=== PATIENT | female | born 1955 | race Caucasian/White ===

== ENCOUNTER → 2017-05-14 07:02 | Outpatient (CLI) | payer OTHER, SELFPAY ==
[2017-05-14 10:13] LABS: Absolute Lymphocyte Count 2.04 X10^3/ul (0.83-4.51); Basophil# 0.02 X10^3/uL; Basophil% 0.3 % (0-1); Eosinophils% 1.4 % (0-5); Hematocrit 40.4 % (37-47); Hemoglobin 13.4 g/dl (12.0-15.0); Lymphocyte # 2.04 X10^3/ul (4.0); Lymphocyte % 28.7 % (19-41); Mean Corp Hgb Conc 33.2 g/gl (32-36); Mean Corpuscular Hgb 33.5 pg (27.0-32.0); Monocyte# 0.95 X10^3/uL; Monocyte% 13.4 % (0-10); Neutrophil # 3.98 X10^3/uL (2.7-7.7); Neutrophil % 56.1 % (47-70); Platelet Count 357 K/mm3 (150-450); RBC Distribution Width CV 13.4 % (11.6-14.6); RBC Distribution Width SD 49.8 fl (35.1-43.9); White Blood Count 7.1 K/mm3 (4.4-11.0)
[2017-05-14 10:14] LABS: POSITIVE COUNT NO; POSITIVE DIFFERENTIAL NO; POSITIVE MORPHOLOGY NO
[2017-05-14 10:49] LABS: ALB/GLOB Ratio 0.9 RATIO (0.9-2.4); AST(SGOT) 20 U/L (15-37); Alanine Aminotransfer ALT/SGPT 25 U/L (13-56); Albumin, Serum 3.6 g/dL (3.2-5.0); Alkaline Phosphatase 94 U/L (45-117); Anion Gap 11 (5-15); BUN 12 mg/dL (7-18); BUN/Creat Ratio 15.3 RATIO (10-20); Calcium,Total 8.7 mg/dL (8.5-10.1); Chloride 99 mmol/L (98-107); Creatinine, Serum 0.78 mg/dL (0.55-1.02); EST Glomerular Filtration Rate 79 mL/min (>60); Est Glom Filt Rate - Afr Amer 96 mL/min (>60); Globulin 4.1 g/dL (2.2-4.2); Glucose 88 mg/dL (74-106); Potassium 3.9 mmol/L (3.5-5.1); Protein, Total 7.7 g/dL (6.4-8.2); Sodium Level 134 mmol/L (136-145)
== END ==
PROVIDERS: Visit Provider Internal Medicine Rheumatology
DX: M06.4 Inflammatory polyarthropathy (principal); Z79.899 Other long term (current) drug therapy; M79.7 Fibromyalgia; M15.9 Polyosteoarthritis, unspecified; M17.0 Bilateral primary osteoarthritis of knee; K21.0 Gastro-esophageal reflux disease with esophagitis; F32.89 Other specified depressive episodes
CPT/HCPCS: 36415; 80053; 85025

== ENCOUNTER → 2017-06-02 09:47 | Outpatient (CLI) | payer OTHER, SELFPAY ==
[2017-06-02 09:51] LABS: Bacteria 0 SEEN /hpf (None Seen); Red Blood Cells-Urine 0 SEEN /hpf (0-5); White Blood Cells 0 SEEN /hpf (0-5)
[2017-06-02 12:56] LABS: Color, Urine Yellow (Yellow); Glucose, Dipstick Normal (Normal); Ketone-Dipstick 5 mg/dl (Negative); Leukocyte Esterase-Dipstick 25 /ul (Negative); Nitrite-Dipstick Negative (Negative); Occult Blood-Urine 10 /ul (Negative); Protein-Dipstick Negative (Negative); Specific Gravity, Urine 1.025 (1.002-1.030); Urine Bilirubin Dipstick Negative (Negative); Urine Clarity Clear (Clear); Urine Urobilinogen Normal (Normal)
[2017-06-02 13:06] LABS: Absolute Lymphocyte Count 2.17 X10^3/ul (0.83-4.51); Absolute Neutrophil Count 5.3 X10^3/uL (2.0-7.7); Basophil# 0.02 X10^3/uL; Basophil% 0.2 % (0-1); Eosinophil# 0.11 X10^3/uL; Eosinophils% 1.3 % (0-5); Hematocrit 40.6 % (37-47); Hemoglobin 13.5 g/dl (12.0-15.0); Lymphocyte # 2.17 X10^3/ul (4.0); Lymphocyte % 25.4 % (19-41); Mean Corp Hgb Conc 33.3 g/gl (32-36); Mean Corpuscular Hgb 33.2 pg (27.0-32.0); Mean Corpuscular Volume 99.8 fL (81-99); Monocyte# 0.89 X10^3/uL; Monocyte% 10.4 % (0-10); Neutrophil # 5.32 X10^3/uL (2.7-7.7); Neutrophil % 62.5 % (47-70); Platelet Count 394 K/mm3 (150-450); RBC Distribution Width CV 13.1 % (11.6-14.6); RBC Distribution Width SD 47.6 fl (35.1-43.9); Red Blood Count 4.07 M/mm3 (4.2-5.4); White Blood Count 8.5 K/mm3 (4.4-11.0)
[2017-06-02 13:07] LABS: POSITIVE COUNT NO; POSITIVE DIFFERENTIAL NO; POSITIVE MORPHOLOGY NO
[2017-06-02 13:14] LABS: Calcium Oxalate Crystals Ur 2+ /hpf (<or=2+); Mucous, Urine RARE /hpf (<or=2+); Squamous Epithelial Cells - UA 0-5 SEEN /hpf (5-10)
[2017-06-02 13:35] LABS: ALB/GLOB Ratio 0.8 RATIO (0.9-2.4); AST(SGOT) 20 U/L (15-37); Alanine Aminotransfer ALT/SGPT 22 U/L (13-56); Albumin, Serum 3.6 g/dL (3.2-5.0); Alkaline Phosphatase 85 U/L (45-117); Anion Gap 13 (5-15); BUN 16 mg/dL (7-18); BUN/Creat Ratio 21.6 RATIO (10-20); Calcium,Total 9.5 mg/dL (8.5-10.1); Chloride 98 mmol/L (98-107); Cholesterol 168 mg/dL (200); Creatinine, Serum 0.74 mg/dL (0.55-1.02); EST Glomerular Filtration Rate 84 mL/min (>60); Est Glom Filt Rate - Afr Amer 102 mL/min (>60); Globulin 4.4 g/dL (2.2-4.2); Glucose 70 mg/dL (74-106); High Density Lipoprotein 76 mg/dL; Potassium 3.5 mmol/L (3.5-5.1); Sodium Level 134 mmol/L (136-145); Thyroid Stim Hormone (TSH) 1.96 uIU/mL (0.358-3.74); Triglycerides 60 mg/dL; Very Low Density Lipoprotein 12 mg/dL (5-40)
== END ==
PROVIDERS: Family Provider Family Medicine; PCP Family Medicine; Visit Provider Family Medicine
DX: I10 Essential (primary) hypertension (principal); Z13.220 Encounter for screening for lipoid disorders
CPT/HCPCS: 36415; 80053; 80061; 81001; 84443; 85025

== ENCOUNTER → 2017-07-28 07:04 | Outpatient (CLI) | payer OTHER, SELFPAY ==
[2017-07-28 10:01] LABS: Absolute Neutrophil Count 4.3 X10^3/uL (2.0-7.7); Basophil# 0.02 X10^3/uL; Basophil% 0.3 % (0-1); Eosinophil# 0.12 X10^3/uL; Eosinophils% 1.8 % (0-5); Hematocrit 38.1 % (37-47); Hemoglobin 13.1 g/dl (12.0-15.0); Lymphocyte % 23.6 % (19-41); Mean Corp Hgb Conc 34.4 g/gl (32-36); Mean Corpuscular Hgb 34.2 pg (27.0-32.0); Mean Corpuscular Volume 99.5 fL (81-99); Mean Platelet Vol. 10.1 fl (6.2-12.0); Monocyte# 0.73 X10^3/uL; Monocyte% 10.8 % (0-10); Neutrophil % 63.4 % (47-70); POSITIVE COUNT NO; POSITIVE DIFFERENTIAL NO; POSITIVE MORPHOLOGY NO; Platelet Count 352 K/mm3 (150-450); RBC Distribution Width CV 13.6 % (11.6-14.6); RBC Distribution Width SD 47.8 fl (35.1-43.9); Red Blood Count 3.83 M/mm3 (4.2-5.4); White Blood Count 6.8 K/mm3 (4.4-11.0)
[2017-07-28 10:15] LABS: ALB/GLOB Ratio 0.8 RATIO (0.9-2.4); AST(SGOT) 18 U/L (15-37); Alanine Aminotransfer ALT/SGPT 24 U/L (13-56); Albumin, Serum 3.4 g/dL (3.2-5.0); Alkaline Phosphatase 92 U/L (45-117); Anion Gap 8 (5-15); BUN 16 mg/dL (7-18); BUN/Creat Ratio 20.2 RATIO (10-20); Calcium,Total 8.9 mg/dL (8.5-10.1); Chloride 101 mmol/L (98-107); Creatinine, Serum 0.79 mg/dL (0.55-1.02); EST Glomerular Filtration Rate 78 mL/min (>60); Est Glom Filt Rate - Afr Amer 94 mL/min (>60); Glucose 87 mg/dL (74-106); Potassium 4.1 mmol/L (3.5-5.1); Protein, Total 7.4 g/dL (6.4-8.2); Sodium Level 135 mmol/L (136-145)
== END ==
PROVIDERS: Family Provider Family Medicine; PCP Family Medicine; Visit Provider Internal Medicine Rheumatology
DX: M06.4 Inflammatory polyarthropathy (principal); M79.7 Fibromyalgia; M17.0 Bilateral primary osteoarthritis of knee; M25.562 Pain in left knee; K21.0 Gastro-esophageal reflux disease with esophagitis; Z79.899 Other long term (current) drug therapy
CPT/HCPCS: 36415; 80053; 85025

== ENCOUNTER → 2017-07-30 15:40 | Outpatient (CLI) | payer OTHER, SELFPAY ==
--- NOTE | 2017-07-30 15:50 | BI_ITS ---
MAMMOGRAPHY - BILATERAL SCREENING 3-D MARGARITA SYNTHESIS REASON FOR EXAM: Female, 61 years old. Bilateral Screening 3-D tomosynthesis PERTINENT HISTORY: No significant family history. TECHNIQUE: 2-D mammograms and 3-D Margarita synthesis of the breast (s) were performed. CAD was performed. COMPARISON: 2009 FINDINGS: The breast composition is heterogeneously dense that can obscure small breast masses. Scattered benign calcifications are seen. No dense spiculated masses or suspicious microcalcifications are identified. No architectural distortion is identified. There is no skin thickening or retraction. There has been no significant change since the prior study. BI/SCREENING MAMM (CAD), BILAT IMPRESSION: No mammographic signs of malignancy. Routine yearly mammograms recommended. ASSESSMENT CATEGORY: BIRADS Category 2: Benign. A letter regarding these results will be sent to the patient by the facility within 30 days. FOLLOW UP RECOMMENDATION: Yearly follow up mammogram recommended. (A) Approximately 10% of breast cancers are not detected by mammography. A normal mammogram should not delay biopsy of a clinically suspicious abnormality. Electronically Signed: Randy Beard MD at 8:20 EDT , Service support ,
== END ==
PROVIDERS: Family Provider Family Medicine; PCP Family Medicine; Visit Provider Family Medicine
DX: Z12.31 Encounter for screening mammogram for malignant neoplasm of breast (principal)
CPT/HCPCS: 77062; 77063; 77067; G0279

== ENCOUNTER → 2017-10-25 08:13 | Outpatient (CLI) | payer OTHER, SELFPAY ==
[2017-10-25 10:15] LABS: Absolute Neutrophil Count 4.3 X10^3/uL (2.0-7.7); Basophil# 0.02 X10^3/uL; Basophil% 0.3 % (0-1); Eosinophils% 3.1 % (0-5); Hematocrit 41.1 % (37-47); Hemoglobin 13.6 g/dl (12.0-15.0); Lymphocyte % 20.2 % (19-41); Mean Corp Hgb Conc 33.1 g/gl (32-36); Mean Corpuscular Hgb 33.5 pg (27.0-32.0); Mean Corpuscular Volume 101.2 fL (81-99); Mean Platelet Vol. 9.7 fl (6.2-12.0); Monocyte# 0.55 X10^3/uL; Monocyte% 8.6 % (0-10); Neutrophil # 4.34 X10^3/uL (2.7-7.7); Neutrophil % 67.6 % (47-70); Platelet Count 354 K/mm3 (150-450); RBC Distribution Width CV 13.1 % (11.6-14.6); RBC Distribution Width SD 48.5 fl (35.1-43.9); Red Blood Count 4.06 M/mm3 (4.2-5.4); White Blood Count 6.4 K/mm3 (4.4-11.0)
[2017-10-25 10:16] LABS: POSITIVE COUNT NO; POSITIVE DIFFERENTIAL NO; POSITIVE MORPHOLOGY NO
[2017-10-25 11:01] LABS: ALB/GLOB Ratio 0.8 RATIO (0.9-2.4); AST(SGOT) 27 U/L (15-37); Alanine Aminotransfer ALT/SGPT 25 U/L (13-56); Albumin, Serum 3.6 g/dL (3.2-5.0); Alkaline Phosphatase 89 U/L (45-117); Anion Gap 10 (5-15); BUN 11 mg/dL (7-18); BUN/Creat Ratio 11.9 RATIO (10-20); Chloride 101 mmol/L (98-107); Creatinine, Serum 0.92 mg/dL (0.55-1.02); EST Glomerular Filtration Rate 65 mL/min (>60); Est Glom Filt Rate - Afr Amer 79 mL/min (>60); Globulin 4.4 g/dL (2.2-4.2); Glucose 81 mg/dL (74-106); Potassium 4.4 mmol/L (3.5-5.1); Sodium Level 136 mmol/L (136-145)
== END ==
PROVIDERS: Family Provider Family Medicine; PCP Family Medicine; Visit Provider Internal Medicine Rheumatology
DX: M06.4 Inflammatory polyarthropathy (principal); M17.0 Bilateral primary osteoarthritis of knee; M79.7 Fibromyalgia; K21.0 Gastro-esophageal reflux disease with esophagitis; F32.89 Other specified depressive episodes; Z79.899 Other long term (current) drug therapy
CPT/HCPCS: 36415; 80053; 85025

== ENCOUNTER → 2017-12-14 10:41 | Outpatient (CLI) | payer OTHER, SELFPAY ==
--- NOTE | 2017-12-14 10:42 | ECHOD_ITS ---
Reason For Study: CHEST PAIN Procedure This was a 2D Doppler, Color Flow transthoracic echocardiogram. Exam performed in department. Left Ventricle Normal size and thickness. The estimated ejection fraction is 65 %. Stage 1 diastolic dysfunction. No regional wall motion abnormalities noted. Right Ventricle Normal size and thickness. Normal systolic function. Atria Normal left atrium. Normal right atrium. Normal atrial septum. Mitral Valve The mitral valve is structurally normal. No prolapse or stenosis seen. Mild (1+) mitral valve insufficiency. Tricuspid Valve Normal tricuspid valve. Mild (1+) tricuspid valve insufficiency. Right ventricular systolic pressure estimated to be 32 mmHg. Aortic Valve Trisinus/trileaflet aortic valve. Pulmonic Valve Normal pulmonic valve. Trivial eccentric pulmonic valve insufficiency. Great Vessels Normal aortic root. Normal arch. Normal inferior vena cava. Inferior vena cava collapse with sniff. Pericardium/Pleural No pericardial effusion. MMode/2D Measurements & Calculations LVIDd: 3.8 cm IVSd: 0.95 cm Ao root diam: 3.7 cm LVIDs: 2.6 cm LVPWd: 1.0 cm LA dimension: 3.2 cm RVDd: 3.3 cm FS: 31.3 % LAV(MOD-bp): 44.0 ml LVAd ap4: 33.5 cm2 SV(MOD-sp4): 69.1 ml LAV(MOD-bp) Indexed: 23.5 ml/m2 EDV(MOD-sp4): 105.3 ml LAV(MOD-sp2): 41.0 ml EDV(sp4-el): 110.5 ml LAV(MOD-sp4): 43.4 ml LVAs ap4: 17.2 cm2 ESV(MOD-sp4): 36.2 ml ESV(sp4-el): 36.6 ml EF(MOD-sp4): 65.6 % EF(sp4-el): 66.9 % SV(sp4-el): 73.9 ml LA A4 area: 17.3 cm2 RA A4 area: 17.8 cm2 Time Measurements MV dec time: 0.21 sec Doppler Measurements & Calculations MV E max ezio: 79.9 cm/sec Lat Peak E' Ezio: 10.7 cm/sec Med Peak E' Ezio: 8.1 cm/sec MV A max ezio: 97.8 cm/sec E/E' lat: 7.5 E/E' med: 9.9 MV E/A: 0.82 Ao V2 max: 151.8 cm/sec LV V1 max: 121.2 cm/sec PA V2 max: 78.7 cm/sec Ao max P.2 mmHg LV V1 max P.9 mmHg TR max ezio: 258.9 cm/sec TR max P.8 mmHg Interpretation Summary The estimated ejection fraction is 65 %. Stage 1 diastolic dysfunction. Mild (1+) mitral valve insufficiency. Mild (1+) tricuspid valve insufficiency. Right ventricular systolic pressure estimated to be 32 mmHg. Ordering Physician: Joseph Ramon Referring Physician: ADRIAN GAGNON Performed By: Jennifer Prieto RDCS
[2017-12-14 11:09] LABS: AST(SGOT) 25 U/L (15-37); Alanine Aminotransfer ALT/SGPT 26 U/L (13-56); Albumin, Serum 3.7 g/dL (3.2-5.0); Alkaline Phosphatase 97 U/L (45-117); Bilirubin, Direct 0.17 mg/dL (0.00-0.30); Cholesterol 175 mg/dL (200); Globulin 4.5 g/dL (2.2-4.2); High Density Lipoprotein 71 mg/dL; Protein, Total 8.2 g/dL (6.4-8.2); Triglycerides 52 mg/dL; Very Low Density Lipoprotein 10 mg/dL (5-40)
== END ==
PROVIDERS: Family Provider Family Medicine; PCP Family Medicine; Visit Provider Internal Medicine Cardiovascular Disease
DX: R07.9 Chest pain, unspecified (principal)
CPT/HCPCS: 36415; 80061; 80076; 93306

== ENCOUNTER → 2017-12-16 13:19 | Outpatient (CLI) | payer OTHER, SELFPAY ==
--- NOTE | 2017-12-16 13:21 | STE_ITS ---
Reason For Study: Chest Pain Stress Results Protocol: Stress Echocardiogram Maximum Predicted HR: 156 bpm Target HR: 133 bpm% Maximum Pr edicted HR: 88 % DurationHeart Rate Stage (mm:ss) (bpm) BPCom ment BASELINE 72 110/70 AMENA PROTOCOL- STAGE 1 3:00 12 9 148/78 AMENA PROTOCOL- STAGE 2 3:00 13 4 144/80 AMENA PROTOCOL- STAGE 3 0:16 13 7 / LEG PAIN RECOVERY 91 134/74 L ARM TINGLING, SUBSIDED AFTER TWO MIN Stress Duration: 6:16 mm:ss Maximum Stress HR: 137 bpm Baseline Echocardiogram Findings The estimated ejection fraction is 65 %. Stress Echo Wall motion Data Resting WMIntermediate WMStress WM Resting Wall Motion Wall Motion Stress No regional wall motion No regional wall motion abnormalities noted. abnormalities noted. EKG Data The baseline ECG demonstrates normal sinus rhythm with at rate of _ beats per minute. The patient exercised according to the regular Amena protocol for a total duration of 6:16. The maximum heart rate attained was 137 beats per minute. This was 87% of maximum predicted heart rate. The patient exercised into stage 3 of the Amena protocol. During stress, there were no ST or T wave changes noted to suggest ischemia. No clinical angina was noted. Interpretation Summary The estimated ejection fraction is 65 %. Normal, adequate, treadmill echocardiogram. Negative for ischemia by EKG and echocardiographic criteria. No anginal symptoms noted. Rare PACs noted. Appropriate blood pressure response to exercise. Average exercise capacity for age. Final LVEF is 75%. Test terminated due to the attainment of target heart rate and leg pain. Ordering Physician: Joseph Ramon Referring Physician: Joseph Ramon Performed By: Jeanna Hernandez RDCS
== END ==
PROVIDERS: Family Provider Family Medicine; PCP Family Medicine; Visit Provider Internal Medicine Cardiovascular Disease
DX: R07.9 Chest pain, unspecified (principal)
CPT/HCPCS: 93017; 93350

== ENCOUNTER → 2018-01-17 13:33 | Outpatient (CLI) | payer OTHER, SELFPAY ==
[2018-01-17 15:31] LABS: Absolute Lymphocyte Count 2.17 X10^3/ul (0.83-4.51); Absolute Neutrophil Count 6.5 X10^3/uL (2.0-7.7); Basophil# 0.03 X10^3/uL; Basophil% 0.3 % (0-1); Eosinophil# 0.14 X10^3/uL; Eosinophils% 1.4 % (0-5); Hematocrit 39.9 % (37-47); Hemoglobin 13.5 g/dl (12.0-15.0); Lymphocyte # 2.17 X10^3/ul (4.0); Lymphocyte % 22.3 % (19-41); Mean Corp Hgb Conc 33.8 g/gl (32-36); Mean Corpuscular Hgb 33.8 pg (27.0-32.0); Mean Platelet Vol. 9.6 fl (6.2-12.0); Monocyte# 0.89 X10^3/uL; Monocyte% 9.1 % (0-10); Neutrophil # 6.49 X10^3/uL (2.7-7.7); Neutrophil % 66.6 % (47-70); Platelet Count 387 K/mm3 (150-450); RBC Distribution Width CV 13.9 % (11.6-14.6); RBC Distribution Width SD 49.8 fl (35.1-43.9); Red Blood Count 3.99 M/mm3 (4.2-5.4); White Blood Count 9.8 K/mm3 (4.4-11.0)
[2018-01-17 15:38] LABS: POSITIVE COUNT NO; POSITIVE DIFFERENTIAL NO; POSITIVE MORPHOLOGY NO
[2018-01-17 16:05] LABS: ALB/GLOB Ratio 0.9 RATIO (0.9-2.4); AST(SGOT) 16 U/L (15-37); Alanine Aminotransfer ALT/SGPT 23 U/L (13-56); Albumin, Serum 3.7 g/dL (3.2-5.0); Alkaline Phosphatase 79 U/L (45-117); Anion Gap 6 (5-15); BUN 12 mg/dL (7-18); BUN/Creat Ratio 14.6 RATIO (10-20); Calcium,Total 8.9 mg/dL (8.5-10.1); Chloride 97 mmol/L (98-107); Creatinine, Serum 0.82 mg/dL (0.55-1.02); EST Glomerular Filtration Rate 74 mL/min (>60); Est Glom Filt Rate - Afr Amer 90 mL/min (>60); Globulin 4.3 g/dL (2.2-4.2); Glucose 86 mg/dL (74-106); Potassium 4.1 mmol/L (3.5-5.1); Sodium Level 131 mmol/L (136-145)
== END ==
PROVIDERS: Family Provider Family Medicine; PCP Family Medicine; Referring Provider Internal Medicine Rheumatology; Visit Provider Internal Medicine Rheumatology
DX: M06.4 Inflammatory polyarthropathy (principal); M17.0 Bilateral primary osteoarthritis of knee; M79.7 Fibromyalgia; K21.0 Gastro-esophageal reflux disease with esophagitis; Z79.899 Other long term (current) drug therapy
CPT/HCPCS: 36415; 80053; 85025

== ENCOUNTER 2018-02-14 07:57 | Day surgery (SDC) | payer OTHER, SELFPAY ==
--- NOTE | 2018-02-14 | GASB_PTH ---
PATIENT: MARIANNE JOYCE LOC: EN U#:[id number] AGE/SX: 62/F ROOM: RE02/14/[address]: Dr. Joseph Wadsworth MD : 1955 BED: DIS: 02/14/2018 SPEC #: [id number] RECD: 02/14/18 14:34 STATUS: KACI REBlaire #: [id number] CHICHO: 02/14/18 00:[address]: Joseph Wadsworth DEPT: SURGICAL PATHOLOGY RECD BY: Mark Olvera ENTERED: 02/14/18 14:34 SP TYPE: Gastric Bx OTHR DR: Dr. Cristóbal Nielsen MD Tissues: Gastric mucous membrane Procedures: Surgery Specimen Level IV HEADER OPERATION: EGD ([facility] [place]) PRE-OP DIAGNOSIS: GERD, esophagitis TISSUE SUBMITTED: Antral biopsy MICROSCOPIC DIAGNOSIS Antral biopsy: Mild gastritis. See microscopic description and comment. SJ:hannah 02/15/18 COMMENT The results of immunohistochemistry for Helicobacter pylori will be reported separately ([id number]). MICROSCOPIC DESCRIPTION Slides are reviewed. The specimen shows fragments of gastric mucosa with chronic inflammatory cell infiltrates in the lamina propria consisting of lymphocytes and plasma cells, consistent with mild chronic gastritis. GROSS DESCRIPTION Received is one container labeled with the patient name and designated antral biopsy. The specimen consists of one irregular fragment of light muhammad soft tissue that measures 0.4 x 0.1 x 0.1 cm. The specimen is totally submitted in one cassette. GIL:hannah 02/14/18 TC: 3 CPT: 12932
--- NOTE | 2018-02-14 | IMM_PTH ---
PATIENT: MARIANNE JOYCE LOC: EN U#:[id number] AGE/SX: 62/F ROOM: RE02/14/[address]: Dr. Joseph Wadsworth MD : 1955 BED: DIS: 02/14/2018 SPEC #: [id number] RECD: 02/15/18 07:49 STATUS: KACI REQ #: [id number] CHICHO: 02/14/18 00:[address]: Joseph Wadsworth DEPT: IMMUNOHISTOCHEMISTRY RECD BY: Sanjuanita Prakash ENTERED: 02/15/18 07:49 SP TYPE: IMMUNO OTHR DR: Dr. Cristóbal Nielsen MD Tissues: Gastric mucous membrane Procedures: H Pylori (initial) Comments: @ Specimen number changed from [id number] to [id number] @ on 02/15/18 at 0752 by [facility]. PHYSICIAN & INSTITUTION [place] [id number] SPECIMEN INFORMATION: Tissue Source: Antral biopsy Clinical Info: GERD, esophagitis Specimen Number: [id number] CPT code: 62053 METHODOLOGY: Deparaffinized sections of prefer/formalin-fixed tissue or PAP/DQ stained slides are incubated with monoclonal/polyclonal antibodies/oligonucleotide probes. Localization is made via biotin free immunoperoxidase method. Appropriate controls are performed and reacted as expected. Results on target cell population are indicated in the following table: RESULTS: ANTIBODY / CLONE RESULT H Pylori (polyclonal) negative These tests were developed and their performance characteristics determined by [facility]. They may not have been cleared or approved by the [place]. Food and Drug Administration. The FDA has determined that such clearance or approval is not necessary. INTERPRETATION: Antral biopsy: Negative for Helicobacter pylori organisms. SJ:homer 02/15/18
[2018-02-14 08:18] VITALS: BP 124/83; PULSE 71; RESP 14; TEMP 37.3; O2SAT 99; BMI 32.4
[2018-02-14 09:10] VITALS: BP 124/83; BP 93/59; PULSE 73; RESP 16; TEMP 36.4; O2SAT 98
--- NOTE | 2018-02-14 09:14 | OP.ENDO_ITS ---
Patient Name: Maryam Do Procedure Date: 02/14/2018 8:52 AM Date of : 1955 Age: 62 Procedure: Upper GI endoscopy Indications: Gastro-esophageal reflux disease Providers: Joseph Wadsworth MD Medicines: See the Anesthesia note for documentation of the administered medications Patient Profile: This is a 62 year old female. Refer to note in patient chart for documentation of history and physical. Patient has symptoms of acute epigastric abdominal pain, acute heartburn, chronic heartburn and acute throat burning. The symptoms first began August. She is status post EGD (normal) within the past several years. Complications: No immediate complications. Procedure: Pre-Anesthesia Assessment: - Prior to the procedure, a History and Physical was performed, and patient medications and allergies were reviewed. The patient's tolerance of previous anesthesia was also reviewed. The risks and benefits of the procedure and the sedation options and risks were discussed with the patient. All questions were answered, and informed consent was obtained. Prior Anticoagulants: The patient has taken no previous anticoagulant or antiplatelet agents. ASA Grade Assessment: II - A patient with mild systemic disease. After reviewing the risks and benefits, the patient was deemed in satisfactory condition to undergo the procedure. After obtaining informed consent, the endoscope was passed under direct vision. Throughout the procedure, the patient's blood pressure, pulse, and oxygen saturations were monitored continuously. The gastroscope was introduced through the mouth, and advanced to the second part of duodenum. The upper GI endoscopy was accomplished without difficulty. The patient tolerated the procedure well. Scope In: 9:03:52 AM Scope Out: 9:06:26 AM Total Procedure Duration Time 0 hours 2 minutes 34 seconds Findings: The nasopharynx was normal. The Z-line was regular and was found 40 cm from the incisors. Diffuse mildly erythematous mucosa without bleeding was found in the prepyloric region of the stomach. Biopsies were taken with a cold forceps for Helicobacter pylori testing. The examined duodenum was normal. Impression: - Normal nasopharynx. - Z-line regular, 40 cm from the incisors. - Erythematous mucosa in the prepyloric region of the stomach. Biopsied. - Normal examined duodenum. Recommendation: - Await pathology results. - Repeat upper endoscopy in 1 month 48 hour pH probe. To evaluate for lap Nae fundoplication. Will also order an esophageal mamometry is one week. - Return to GI office in 1 week. - Continue present medications. Procedure Code(s): --- Professional --- 73993, Esophagogastroduodenoscopy, flexible, transoral; with biopsy, single or multiple Diagnosis Code(s): --- Professional --- K31.89, Other diseases of stomach and duodenum K21.9, Gastro-esophageal reflux disease without esophagitis CPT copyright 2017 [employer] [place] [employer]. All rights reserved. The codes documented in this report are preliminary and upon scrub wheel operator review may be revised to meet current compliance requirements. MD Joseph Cuellar MD 02/14/2018 9:14:26 AM This report has been signed electronically. Number of Addenda: 0 Note Initiated On: 02/14/2018 8:52 AM
[2018-02-14 09:15] VITALS: BP 103/63; BP 124/83; PULSE 68; RESP 16; O2SAT 99
[2018-02-14 09:20] VITALS: BP 104/67; BP 124/83; PULSE 63; RESP 16; O2SAT 100
[2018-02-14 09:25] VITALS: BP 101/68; BP 124/83; PULSE 64; RESP 16; TEMP 36.3; O2SAT 99
== END 2018-02-14 09:49 | disposition home or self-care (01) ==
LOC: EN 07:57 → AC 07:59
PROVIDERS: Family Provider Family Medicine; PCP Family Medicine; Referring Provider Surgery; Visit Provider Surgery
PROC: 0DJ08ZZ Inspection of Upper Intestinal Tract, Via Natural or Artificial Opening Endoscopic (ICD-10-PCS; CPT 43235; principal; 2018-02-14 08:55)
DX: K29.70 Gastritis, unspecified, without bleeding (principal); K21.9 Gastro-esophageal reflux disease without esophagitis; I10 Essential (primary) hypertension; I36.1 Nonrheumatic tricuspid (valve) insufficiency; I34.0 Nonrheumatic mitral (valve) insufficiency; M06.9 Rheumatoid arthritis, unspecified; R07.9 Chest pain, unspecified; Z78.0 Asymptomatic menopausal state; Z79.899 Other long term (current) drug therapy; Z87.19 Personal history of other diseases of the digestive system; Z85.828 Personal history of other malignant neoplasm of skin
CPT/HCPCS: 43239; 88305; 88342; J7120

== ENCOUNTER → 2018-05-02 13:29 | Outpatient (CLI) | payer OTHER, SELFPAY ==
[2018-05-02 15:50] LABS: ALB/GLOB Ratio 0.9 RATIO (0.9-2.4); AST(SGOT) 21 U/L (15-37); Alanine Aminotransfer ALT/SGPT 23 U/L (13-56); Albumin, Serum 3.7 g/dL (3.2-5.0); Alkaline Phosphatase 74 U/L (45-117); Anion Gap 12 (5-15); BUN 11 mg/dL (7-18); BUN/Creat Ratio 13.3 RATIO (10-20); Calcium,Total 8.8 mg/dL (8.5-10.1); Chloride 101 mmol/L (98-107); Creatinine, Serum 0.82 mg/dL (0.55-1.02); EST Glomerular Filtration Rate 74 mL/min (>60); Est Glom Filt Rate - Afr Amer 90 mL/min (>60); Globulin 4.3 g/dL (2.2-4.2); Glucose 82 mg/dL (74-106); Sodium Level 138 mmol/L (136-145)
[2018-05-02 15:57] LABS: Absolute Neutrophil Count 4.5 X10^3/uL (2.0-7.7); Basophil# 0.02 X10^3/uL; Basophil% 0.3 % (0-1); Eosinophil# 0.15 X10^3/uL; Hematocrit 38.9 % (37-47); Hemoglobin 12.7 g/dl (12.0-15.0); Lymphocyte % 24.4 % (19-41); Mean Corp Hgb Conc 32.6 g/gl (32-36); Mean Corpuscular Hgb 32.9 pg (27.0-32.0); Mean Corpuscular Volume 100.8 fL (81-99); Mean Platelet Vol. 9.7 fl (6.2-12.0); Monocyte# 0.91 X10^3/uL; Monocyte% 12.3 % (0-10); Neutrophil # 4.48 X10^3/uL (2.7-7.7); Neutrophil % 60.9 % (47-70); Platelet Count 407 K/mm3 (150-450); RBC Distribution Width CV 13.3 % (11.6-14.6); Red Blood Count 3.86 M/mm3 (4.2-5.4); White Blood Count 7.4 K/mm3 (4.4-11.0)
[2018-05-02 16:14] LABS: POSITIVE COUNT NO; POSITIVE DIFFERENTIAL NO; POSITIVE MORPHOLOGY NO
== END ==
PROVIDERS: Family Provider Family Medicine; PCP Family Medicine; Referring Provider Internal Medicine Rheumatology; Visit Provider Internal Medicine Rheumatology
DX: M06.4 Inflammatory polyarthropathy (principal); M79.7 Fibromyalgia; M17.0 Bilateral primary osteoarthritis of knee; M72.0 Palmar fascial fibromatosis [Dupuytren]; K21.0 Gastro-esophageal reflux disease with esophagitis; F32.89 Other specified depressive episodes; Z79.899 Other long term (current) drug therapy
CPT/HCPCS: 36415; 80053; 85025

== ENCOUNTER → 2018-07-29 13:30 | Outpatient (CLI) | payer OTHER, SELFPAY ==
[2018-06-07 14:09] VITALS: BMI 32.8
[2018-07-29 14:10] LABS: Absolute Lymphocyte Count 1.82 X10^3/ul (0.83-4.51); Absolute Neutrophil Count 3.7 X10^3/uL (2.0-7.7); Basophil# 0.03 X10^3/uL; Basophil% 0.5 % (0-1); Eosinophil# 0.13 X10^3/uL; Hematocrit 36.6 % (37-47); Hemoglobin 12.5 g/dl (12.0-15.0); Lymphocyte # 1.82 X10^3/ul (4.0); Lymphocyte % 28.5 % (19-41); Mean Corp Hgb Conc 34.2 g/gl (32-36); Mean Corpuscular Hgb 33.6 pg (27.0-32.0); Mean Corpuscular Volume 98.4 fL (81-99); Mean Platelet Vol. 9.3 fl (6.2-12.0); Monocyte# 0.74 X10^3/uL; Monocyte% 11.6 % (0-10); Neutrophil # 3.65 X10^3/uL (2.7-7.7); Neutrophil % 57.2 % (47-70); Platelet Count 333 K/mm3 (150-450); Red Blood Count 3.72 M/mm3 (4.2-5.4); White Blood Count 6.4 K/mm3 (4.4-11.0)
[2018-07-29 14:11] LABS: POSITIVE COUNT NO; POSITIVE DIFFERENTIAL NO; POSITIVE MORPHOLOGY NO
[2018-07-29 14:33] LABS: ALB/GLOB Ratio 0.9 RATIO (0.9-2.4); AST(SGOT) 20 U/L (15-37); Alanine Aminotransfer ALT/SGPT 19 U/L (13-56); Albumin, Serum 3.6 g/dL (3.2-5.0); Alkaline Phosphatase 75 U/L (45-117); Anion Gap 9 (5-15); BUN 12 mg/dL (7-18); Calcium,Total 8.5 mg/dL (8.5-10.1); Chloride 100 mmol/L (98-107); Creatinine, Serum 0.75 mg/dL (0.55-1.02); EST Glomerular Filtration Rate 83 mL/min (>60); Est Glom Filt Rate - Afr Amer 100 mL/min (>60); Glucose 88 mg/dL (74-106); Potassium 3.9 mmol/L (3.5-5.1); Protein, Total 7.6 g/dL (6.4-8.2); Sodium Level 134 mmol/L (136-145)
== END ==
PROVIDERS: Family Provider Family Medicine; PCP Family Medicine; Referring Provider Internal Medicine Rheumatology; Visit Provider Internal Medicine Rheumatology
DX: M06.4 Inflammatory polyarthropathy (principal); M17.0 Bilateral primary osteoarthritis of knee; M79.7 Fibromyalgia; K21.0 Gastro-esophageal reflux disease with esophagitis; F32.89 Other specified depressive episodes; Z79.899 Other long term (current) drug therapy
CPT/HCPCS: 36415; 80053; 85025

== ENCOUNTER → 2018-10-20 13:14 | Outpatient (CLI) | payer OTHER, SELFPAY ==
[2018-10-11 09:56] VITALS: BMI 32.8
[2018-10-20 14:35] LABS: Absolute Lymphocyte Count 1.44 X10^3/uL (0.83-4.51); Absolute Neutrophil Count 3.5 X10^3/uL (2.0-7.7); Basophil# 0.03 X10^3/uL; Basophil% 0.5 % (0-1); Eosinophil# 0.11 X10^3/uL; Hematocrit 38.9 % (37-47); Lymphocyte # 1.44 X10^3/ul (4.0); Lymphocyte % 25.6 % (19-41); Mean Corp Hgb Conc 33.4 g/dL (32-36); Mean Corpuscular Hgb 33.1 pg (27.0-32.0); Mean Platelet Vol. 9.5 fl (6.2-12.0); Monocyte# 0.56 X10^3/uL; NRBC Flagged by Analyzer 0 % (0-5); Neutrophil # 3.46 X10^3/uL (2.7-7.7); Neutrophil % 61.5 % (47-70); Platelet Count 362 K/mm3 (150-450); RBC Distribution Width CV 12.9 % (11.6-14.6); RBC Distribution Width SD 46.4 fl (35.1-43.9); Red Blood Count 3.93 M/mm3 (4.2-5.4); White Blood Count 5.6 K/mm3 (4.4-11.0)
[2018-10-20 14:52] LABS: ALB/GLOB Ratio 0.9 RATIO (0.9-2.4); AST(SGOT) 16 U/L (15-37); Alanine Aminotransfer ALT/SGPT 16 U/L (13-56); Albumin, Serum 3.5 g/dL (3.2-5.0); Alkaline Phosphatase 77 U/L (45-117); Anion Gap 5 (5-15); BUN 11 mg/dL (7-18); BUN/Creat Ratio 13.6 RATIO (10-20); Calcium,Total 8.9 mg/dL (8.5-10.1); Chloride 100 mmol/L (98-107); Creatinine, Serum 0.81 mg/dL (0.55-1.02); EST Glomerular Filtration Rate 75 mL/min (>60); Est Glom Filt Rate - Afr Amer 91 mL/min (>60); Glucose 114 mg/dL (74-106); Potassium 3.4 mmol/L (3.5-5.1); Protein, Total 7.5 g/dL (6.4-8.2); Sodium Level 132 mmol/L (136-145)
== END ==
PROVIDERS: Family Provider Family Medicine; PCP Family Medicine; Referring Provider Internal Medicine Rheumatology; Visit Provider Internal Medicine Rheumatology
DX: M06.4 Inflammatory polyarthropathy (principal); M17.0 Bilateral primary osteoarthritis of knee; M79.7 Fibromyalgia; K21.0 Gastro-esophageal reflux disease with esophagitis; F32.89 Other specified depressive episodes; Z79.899 Other long term (current) drug therapy
CPT/HCPCS: 36415; 80053; 85025

== ENCOUNTER → 2018-11-18 15:03 | Outpatient (CLI) | payer OTHER, SELFPAY ==
[2018-10-11 09:56] VITALS: BMI 32.8
--- NOTE | 2018-11-18 15:05 | BI_ITS ---
MAMMOGRAPHY - BILATERAL SCREENING 3-D TOMOSYNTHESIS REASON FOR EXAM: Female, 63 years old. Bilateral Screening 3-D tomosynthesis PERTINENT HISTORY: No significant family history. TECHNIQUE: 2-D mammograms and 3-D Tomosynthesis of the breast (s) were performed. CAD was performed. COMPARISON: 07/30/17 FINDINGS: The breast composition is heterogeneously dense that can obscure small breast masses. Scattered benign calcifications are seen. No dense spiculated masses or suspicious microcalcifications are identified. No architectural distortion is identified. There is no skin thickening or retraction. There has been overall increase in extent of the benign calcification, and otherwise other focus of significant change since the prior study. BI/SCREEN MAMM (CAD) W/MARGARITA BILAT IMPRESSION: No mammographic signs of malignancy. Routine yearly mammograms recommended. ASSESSMENT CATEGORY: BIRADS Category 2: Benign. A letter regarding these results will be sent to the patient by the facility within 30 days. FOLLOW UP RECOMMENDATION: Yearly follow up mammogram recommended. (A) Approximately 10% of breast cancers are not detected by mammography. A normal mammogram should not delay biopsy of a clinically suspicious abnormality. Electronically Signed: Lamin Lara MD at 15:53 EDT Tel [phone], Service support ,
== END ==
PROVIDERS: Family Provider Family Medicine; PCP Family Medicine; Referring Provider Family Medicine; Visit Provider Family Medicine
DX: Z12.31 Encounter for screening mammogram for malignant neoplasm of breast (principal)
CPT/HCPCS: 77063; 77067

== ENCOUNTER → 2019-01-05 10:47 | Outpatient (CLI) | payer OTHER, SELFPAY ==
[2018-12-22 13:47] VITALS: BMI 33.3
--- NOTE | 2019-01-05 10:48 | ECHOD_ITS ---
Reason For Study: DYSPNEA/SOB Procedure This was a 2D Doppler, Color Flow transthoracic echocardiogram. Exam performed in department. Left Ventricle Normal size and thickness. The estimated ejection fraction is 65 %. Stage 1 diastolic dysfunction. No regional wall motion abnormalities noted. Right Ventricle Normal size and thickness. Normal systolic function. Atria Normal left atrium. Normal right atrium. Normal atrial septum. Mitral Valve The mitral valve is structurally normal. No prolapse or stenosis seen. Tricuspid Valve Normal tricuspid valve. Trivial tricuspid valve insufficiency. Right ventricular systolic pressure estimated to be 27 mmHg. Aortic Valve Normal aortic valve. Trisinus/trileaflet aortic valve. Pulmonic Valve Normal pulmonic valve. Great Vessels Normal aortic root. Normal arch. Normal inferior vena cava. Inferior vena cava collapse with sniff. Pericardium/Pleural No pericardial effusion. Medication 22 gauge I.V. with prn adaptor inserted into right arm. Diluted definity 2ml given slow IV push to enhance endocardial definition. MMode/2D Measurements & Calculations LVIDd: 3.9 cm IVSd: 1.1 cm Ao root diam: 3.7 cm LVIDs: 2.6 cm LVPWd: 0.94 cm RVDd: 3.2 cm FS: 32.7 % LAV(MOD-bp): 34.0 ml LVAd ap4: 28.8 cm2 SV(MOD-sp4): 51.3 ml LAV(MOD-bp) Indexed: 17.7 ml/m2 EDV(MOD-sp4): 83.8 ml LAV(MOD-sp2): 37.8 ml EDV(sp4-el): 89.4 ml LAV(MOD-sp4): 27.7 ml LVAs ap4: 16.7 cm2 ESV(MOD-sp4): 32.5 ml ESV(sp4-el): 34.8 ml EF(MOD-sp4): 61.2 % EF(sp4-el): 61.1 % SV(sp4-el): 54.6 ml LA A4 area: 13.1 cm2 LA dimension(2D): 3.1 cm RA A4 area: 11.9 cm2 Doppler Measurements & Calculations MV E max ezio: 68.3 cm/sec Lat Peak E' Ezio: 11.0 cm/sec Med Peak E' Ezio: 9.5 cm/sec MV A max ezio: 119.9 cm/sec E/E' lat: 6.2 E/E' med: 7.2 MV E/A: 0.57 Ao V2 max: 146.2 cm/sec LV V1 max: 140.1 cm/sec PA V2 max: 96.7 cm/sec Ao max P.5 mmHg LV V1 max P.8 mmHg TR max ezio: 230.9 cm/sec TR max P.3 mmHg Interpretation Summary The estimated ejection fraction is 65 %. Stage 1 diastolic dysfunction. Trivial tricuspid valve insufficiency. Right ventricular systolic pressure estimated to be 27 mmHg. Compared to echo report dated 12/14/2017, no appreciable changes noted. The study was technically difficult. Contrast injection was performed. Ordering Physician: Joseph Ramon Referring Physician: ADRIAN GAGNON Performed By: Jennifer Prieto RDCS
== END ==
PROVIDERS: Family Provider Family Medicine; PCP Family Medicine; Referring Provider Internal Medicine Cardiovascular Disease; Visit Provider Internal Medicine Cardiovascular Disease
DX: R06.00 Dyspnea, unspecified (principal); R06.02 Shortness of breath; J20.9 Acute bronchitis, unspecified; I10 Essential (primary) hypertension; I36.1 Nonrheumatic tricuspid (valve) insufficiency; I34.0 Nonrheumatic mitral (valve) insufficiency
CPT/HCPCS: 93306; Q9957; A4216; C8929

== ENCOUNTER → 2019-01-10 12:43 | Outpatient (CLI) | payer OTHER, SELFPAY ==
[2018-12-22 13:47] VITALS: BMI 33.3
--- NOTE | 2019-01-10 12:45 | STEWCON_ITS ---
Reason For Study: DYSPNEA/SOB Stress Results Protocol: Henrry Protocol WITH DEFINITY Maximum Predicted HR: 155 bpm Target HR: 132 bpm % Maximum Predicted HR: 101 % DurationHeart Rate Stage (mm:ss) (bpm) BP Comment BASELINE 112 142/921 CC DEFINITY STAGE 1 3:00 151 162/82 STAGE 2 3:00 157 144/801 CC DEFINITY RECOVERY 129 132/92 Stress Duration: 6:00 mm:ss Maximum Stress HR: 157 bpm Baseline Echocardiogram Findings The estimated ejection fraction is 65 %. Stress Echo Wall motion Data Resting WM Intermediate WM Stress WM Resting Wall Motion Wall Motion Stress No regional wall motion No regional wall motion abnormalities noted. abnormalities noted. EKG Data The baseline ECG displays normal sinus rhythm. The patient exercised according to the regular Henrry protocol for a total duration of 6:01. The maximum heart rate attained was 173 beats per minute. This was 111% of maximum predicted heart rate. The patient exercised into stage 2 of the Henrry protocol. During stress, there were no ST or T wave changes noted to suggest ischemia. No clinical angina was noted. Interpretation Summary The estimated ejection fraction is 65 %. Normal, adequate, treadmill echocardiogram. Negative for ischemia by EKG and echocardiographic criteria. No anginal symptoms noted. Rare PVC noted. Decreased blood pressure during exercise. Poor exercise capacity for age. Final LVEF of 75%. Test terminated due to the attainment of target heart rate. Decreased sensitivity due to poor echo windows requiring Definity agent. No complications. The study was technically difficult. Contrast injection was performed. Ordering Physician: Joseph Ramon Referring Physician: Joseph Ramon Performed By: Jeanna Hernandez RDCS
== END ==
PROVIDERS: Family Provider Family Medicine; PCP Family Medicine; Referring Provider Internal Medicine Cardiovascular Disease; Visit Provider Internal Medicine Cardiovascular Disease
DX: R06.00 Dyspnea, unspecified (principal); R06.02 Shortness of breath; I10 Essential (primary) hypertension; I36.1 Nonrheumatic tricuspid (valve) insufficiency; I34.0 Nonrheumatic mitral (valve) insufficiency; R68.84 Jaw pain
CPT/HCPCS: 93017; 93350; Q9957; A4216; C8928

== ENCOUNTER → 2019-01-11 06:52 | Outpatient (CLI) | payer OTHER, SELFPAY ==
[2018-12-22 13:47] VITALS: BMI 33.3
--- NOTE | 2019-01-11 07:20 | RAD_ITS ---
STUDY: X-RAY CHEST REASON FOR EXAM: Female, 63 years old. Chest pain TECHNIQUE: Frontal and lateral views COMPARISON: None. FINDINGS: The lungs are expanded. Possible right middle lobe infiltrate. Normal size heart. Normal mediastinum and laurel. Normal visualized pulmonary arteries. Normal visualized aortic arch and descending thoracic aorta. Degenerative changes and scoliosis of the thoracic spine. Normal visualized ribs, clavicles, and shoulders. There is no demonstrated abnormality of the visualized soft tissue structures of the upper abdomen. RAD/Chest PA and Lateral IMPRESSION: Possible right middle lobe infiltrate. Electronically Signed: Lc Marino DO at 19:29 EDT Tel [phone], Service support ,
[2019-01-11 08:20] LABS: Hematocrit 40.3 % (37-47); Hemoglobin 13.4 g/dL (12.0-15.0); Mean Corp Hgb Conc 33.3 g/dL (32-36); Mean Corpuscular Hgb 34.9 pg (27.0-32.0); Mean Corpuscular Volume 104.9 fL (81-99); Mean Platelet Vol. 9.1 fl (6.2-12.0); Platelet Count 424 K/mm3 (150-450); RBC Distribution Width CV 14.5 % (11.6-14.6); RBC Distribution Width SD 55.7 fl (35.1-43.9); Red Blood Count 3.84 M/mm3 (4.2-5.4); White Blood Count 6.1 K/mm3 (4.4-11.0)
[2019-01-11 09:02] LABS: AST(SGOT) 21 U/L (15-37); Alanine Aminotransfer ALT/SGPT 24 U/L (13-56); Albumin, Serum 3.5 g/dL (3.2-5.0); Alkaline Phosphatase 89 U/L (45-117); Anion Gap 9 (5-15); BUN 9 mg/dL (7-18); BUN/Creat Ratio 13.1 RATIO (10-20); Bilirubin, Direct 0.12 mg/dL (0.00-0.30); Calcium,Total 8.8 mg/dL (8.5-10.1); Chloride 98 mmol/L (98-107); Cholesterol 182 mg/dL (200); Creatinine, Serum 0.69 mg/dL (0.55-1.02); EST Glomerular Filtration Rate 91 mL/min (>60); Est Glom Filt Rate - Afr Amer 110 mL/min (>60); Globulin 4.5 g/dL (2.2-4.2); Glucose 69 mg/dL (74-106); High Density Lipoprotein 88 mg/dL; Potassium 4.1 mmol/L (3.5-5.1); Sodium Level 135 mmol/L (136-145); Triglycerides 55 mg/dL; Very Low Density Lipoprotein 11 mg/dL (5-40)
[2019-01-11 09:48] LABS: Prothrombin Time (Protime)PT. 13.2 SECONDS (11.7-14.9)
[2019-01-11 09:54] LABS: Partial Thromboplast Time 28.6 Seconds (24.1-36.2)
== END ==
PROVIDERS: Family Provider Family Medicine; PCP Family Medicine; Referring Provider Internal Medicine Cardiovascular Disease; Visit Provider Internal Medicine Cardiovascular Disease
DX: R07.9 Chest pain, unspecified (principal); I10 Essential (primary) hypertension; E78.00 Pure hypercholesterolemia, unspecified; R68.84 Jaw pain
CPT/HCPCS: 36415; 71046; 80048; 80061; 80076; 85027; 85610; 85730

== ENCOUNTER → 2019-01-16 10:25 | Outpatient (CLI) | payer OTHER, SELFPAY ==
[2019-01-11 09:20] VITALS: BMI 33.3
[2019-01-16 12:34] LABS: Absolute Lymphocyte Count 1.04 X10^3/uL (0.83-4.51); Absolute Neutrophil Count 5.2 X10^3/uL (2.0-7.7); Basophil# 0.05 X10^3/uL; Basophil% 0.7 % (0-1); Eosinophil# 0.17 X10^3/uL; Eosinophils% 2.4 % (0-5); Hematocrit 40.7 % (37-47); Hemoglobin 14.1 g/dL (12.0-15.0); Lymphocyte # 1.04 X10^3/ul (4.0); Lymphocyte % 14.6 % (19-41); Mean Corp Hgb Conc 34.6 g/dL (32-36); Mean Corpuscular Hgb 35.5 pg (27.0-32.0); Mean Corpuscular Volume 102.5 fL (81-99); Mean Platelet Vol. 9.2 fl (6.2-12.0); Monocyte# 0.67 X10^3/uL; Monocyte% 9.4 % (0-10); NRBC Flagged by Analyzer 0 % (0-5); Neutrophil # 5.15 X10^3/uL (2.7-7.7); Neutrophil % 72.5 % (47-70); Platelet Count 411 K/mm3 (150-450); RBC Distribution Width CV 13.6 % (11.6-14.6); RBC Distribution Width SD 51.6 fl (35.1-43.9); Red Blood Count 3.97 M/mm3 (4.2-5.4); White Blood Count 7.1 K/mm3 (4.4-11.0)
[2019-01-16 12:50] LABS: ALB/GLOB Ratio 0.8 RATIO (0.9-2.4); AST(SGOT) 21 U/L (15-37); Alanine Aminotransfer ALT/SGPT 21 U/L (13-56); Albumin, Serum 3.6 g/dL (3.2-5.0); Alkaline Phosphatase 83 U/L (45-117); Anion Gap 8 (5-15); BUN 8 mg/dL (7-18); BUN/Creat Ratio 11.2 RATIO (10-20); Bilirubin, Direct 0.17 mg/dL (0.00-0.30); Calcium,Total 9.2 mg/dL (8.5-10.1); Chloride 97 mmol/L (98-107); Cholesterol 177 mg/dL (200); Creatinine, Serum 0.72 mg/dL (0.55-1.02); EST Glomerular Filtration Rate 87 mL/min (>60); Est Glom Filt Rate - Afr Amer 105 mL/min (>60); Globulin 4.5 g/dL (2.2-4.2); Glucose 90 mg/dL (74-106); High Density Lipoprotein 76 mg/dL; Potassium 4.2 mmol/L (3.5-5.1); Protein, Total 8.1 g/dL (6.4-8.2); Sodium Level 131 mmol/L (136-145); Triglycerides 53 mg/dL; Very Low Density Lipoprotein 11 mg/dL (5-40)
== END ==
PROVIDERS: Family Provider Family Medicine; PCP Family Medicine; Referring Provider Internal Medicine Rheumatology; Visit Provider Internal Medicine Rheumatology
DX: M06.4 Inflammatory polyarthropathy (principal); E78.00 Pure hypercholesterolemia, unspecified; M79.7 Fibromyalgia; M17.0 Bilateral primary osteoarthritis of knee; K21.0 Gastro-esophageal reflux disease with esophagitis; F32.89 Other specified depressive episodes; Z79.899 Other long term (current) drug therapy
CPT/HCPCS: 36415; 80053; 80061; 82248; 85025

== ENCOUNTER → 2019-01-24 08:22 | Outpatient (CLI) | payer OTHER, SELFPAY ==
[2019-01-11 09:20] VITALS: BMI 33.3
--- NOTE | 2019-01-24 09:17 | RAD_ITS ---
STUDY: X-RAY CHEST REASON FOR EXAM: Female, 63 years old. Pneumonia TECHNIQUE: PA and lateral views of the chest. COMPARISON: Prior study of 01/11/2019 FINDINGS: The lungs are clear and expanded. There is no demonstrated pleural abnormality. Normal size heart. Normal mediastinum and laurel. Normal visualized pulmonary arteries. There are calcified plaques of the aortic arch. There are diffuse degenerative changes of the visualized thoracic spine. Normal visualized ribs, clavicles, and shoulders. There is no demonstrated abnormality of the visualized soft tissue structures of the upper abdomen. RAD/Chest PA and Lateral IMPRESSION: Calcified plaques of the aortic arch. Degenerative changes of the thoracic spine. There is no evidence of infiltrate, atelectasis, or pleural fluid. Electronically Signed: Lucius Padron MD at 16:57 EDT , Service support ,
[2019-01-24 11:03] LABS: Anion Gap 10 (5-15); BUN 14 mg/dL (7-18); BUN/Creat Ratio 17.3 RATIO (10-20); Calcium,Total 9.2 mg/dL (8.5-10.1); Chloride 93 mmol/L (98-107); Creatinine, Serum 0.81 mg/dL (0.55-1.02); EST Glomerular Filtration Rate 76 mL/min (>60); Est Glom Filt Rate - Afr Amer 91 mL/min (>60); Glucose 99 mg/dL (74-106); Sodium Level 131 mmol/L (136-145)
== END ==
PROVIDERS: Family Provider Family Medicine; PCP Family Medicine; Referring Provider Family Medicine; Visit Provider Family Medicine
DX: J18.9 Pneumonia, unspecified organism (principal); E87.1 Hypo-osmolality and hyponatremia
CPT/HCPCS: 36415; 71046; 80048

== ENCOUNTER 2019-02-15 07:50 | Day surgery (SDC) | payer OTHER, SELFPAY ==
[2018-12-22 13:47] VITALS: BMI 33.3
[2019-01-11 09:20] VITALS: BMI 33.3
--- NOTE | 2019-02-03 13:20 | RAD_ITS ---
STUDY: X-RAY CHEST REASON FOR EXAM: Female, 63 years old. Acute substernal chest pain TECHNIQUE: PA and lateral views of the chest. COMPARISON: 01/24/2019 FINDINGS: The lungs are clear and expanded. There is no demonstrated pleural abnormality. Normal size heart. Normal mediastinum and laurel. Normal visualized pulmonary arteries. Normal visualized aortic arch and descending thoracic aorta. There are diffuse degenerative changes of the visualized thoracic spine. Normal visualized ribs, clavicles, and shoulders. There is no demonstrated abnormality of the visualized soft tissue structures of the upper abdomen. RAD/Chest PA and Lateral IMPRESSION: No acute pulmonary process Electronically Signed: Randy Beard MD at 9:26 EDT , Service support ,
[2019-02-03 14:43] LABS: Hematocrit 41.6 % (37-47); Hemoglobin 14.2 g/dL (12.0-15.0); Mean Corp Hgb Conc 34.1 g/dL (32-36); Mean Corpuscular Hgb 34.9 pg (27.0-32.0); Mean Corpuscular Volume 102.2 fL (81-99); Mean Platelet Vol. 9.2 fl (6.2-12.0); Platelet Count 368 K/mm3 (150-450); RBC Distribution Width CV 12.7 % (11.6-14.6); RBC Distribution Width SD 47.9 fl (35.1-43.9); Red Blood Count 4.07 M/mm3 (4.2-5.4); White Blood Count 7.7 K/mm3 (4.4-11.0)
[2019-02-03 14:48] LABS: Partial Thromboplast Time 27.6 Seconds (24.1-36.2); Prothrombin Time (Protime)PT. 13.2 SECONDS (11.7-14.9)
[2019-02-03 15:10] LABS: Anion Gap 10 (5-15); BUN 8 mg/dL (7-18); BUN/Creat Ratio 10.7 RATIO (10-20); Calcium,Total 8.9 mg/dL (8.5-10.1); Chloride 92 mmol/L (98-107); Creatinine, Serum 0.75 mg/dL (0.55-1.02); EST Glomerular Filtration Rate 82 mL/min (>60); Est Glom Filt Rate - Afr Amer 100 mL/min (>60); Glucose 89 mg/dL (74-106); Sodium Level 130 mmol/L (136-145)
[2019-02-15 08:14] VITALS: BMI 33.2
--- NOTE | 2019-02-15 08:52 | HP.PCM_ITS ---
<Juanis Stoll - Last Filed: 02/15/19 08:59> History and Physical Date of Admission: 02/15/19 MARIANNE JOYCE, is a 63 F who presents to the office today for a diagnostic heart cath. She initially presented to the office a month ago for evaluation of chest pain. She underwent a stress test which was abnormal. She has a history of rheumatoid arthritis, hypertension, GERD, and diverticulitis. She has had chest burning pain for approx 2 years. Initial stress test was negative 2 years ago. Her symptoms have persisted since that time and recently gotten worse over the last several months. 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 In addition her symptoms are somewhat atypical and then she gets worse when she bends over, and when she is laying down at home. She describes the quality of the chest pain dissimilar from her previous reflux but does not describe it as discomfort. More recently she has had pain radiating down the inner part of her left arm into her lower left 2 fingers as well as up into her jaw. She was recently started on baby aspirin by her PCP and referred to our office for evaluation. This appears to have coincided with discontinuation of her PPI. She had an EGD more than 5 years ago at the [facility] and does not recall the results but denies being told that she had a hiatal hernia. In addition she had right upper quadrant tenderness by palpation at her PCPs office last week. In addition she is a non-smoker, nondrinker, does have a positive family history of valvular disease and her older sister who required corrective valvular surgery, and a brother who has a cerebral aneurysm. She herself has never had a heart catheterization. Patient underwent a treadmill echocardiogram on 12/16/17 to evaluate her symptoms which was found to be normal. In addition she underwent a 2D echo with Doppler on 12/14/17 which showed an LVEF of 65 and RVSP of 32 mmHg. Patient was replaced on her PPI therapy, as well as Lopressor 25 mg p.o. twice daily, and her chest pain is completely resolved. Patient underwent an upper GI evaluation last year, which was essentially negative. The patient recently retired in September 2018 and has been cleaning out her basement and attempt to straighten up her house. During that time the patient has complained of worsening shortness of breath, dyspnea on exertion particularly with going up and down stairs, as well as exertional jaw pain. She denies any presyncope or syncope, but occasionally also develops midsternal chest pain as well. She cannot recall whether she had any jaw pain on her stress test last year. Intake VS: see chart Allergies No Known Allergies Allergy (Verified 12/22/18 13:50) Medications duloxetine 60 mg capsule,delayed release 60 mg PO DAILY 12/03/17 [History Confirmed 12/22/18] folic acid 1 mg tablet 2 mg PO DAILY tab 12/03/17 [History Confirmed 12/22/18] methotrexate sodium 2.5 mg tablet 25 mg PO MO tab 02/02/18 [History Confirmed 12/22/18] pantoprazole 20 mg tablet,delayed release 20 mg PO DAILY #30 tab 12/16/18 [Rx Confirmed 12/22/18] metoprolol tartrate 25 mg tablet 25 mg PO BID #60 tab 12/22/18 [Rx Confirmed 12/22/18] [facility] Medical History Essential hypertension (Chronic) Nonrheumatic tricuspid (valve) insufficiency (Chronic) Nonrheumatic mitral (valve) insufficiency (Chronic) Chest pain (Acute) GERD (gastroesophageal reflux disease) (Chronic) Knee pain (Acute) SOB (shortness of breath) (Acute) Diverticulitis (Chronic) History of skin cancer (Chronic) Rheumatoid arthritis (Chronic) Surgical History History of basal cell carcinoma excision (Resolved) History of hysterectomy (Resolved) History of wisdom tooth extraction (Resolved) Family History Mother Colon cancer Father Lung cancer Sister History of heart valve replacement Cardiac pacemaker in situ Cancer skin Thyroid disorder Social History (Updated 12/22/18 @ 14:08 by Joseph Ramon MD) Smoking Status: Never smoker alcohol intake: current alcohol intake frequency: a few times a month substance use type: does not use ROS Const Const: Positive for other (Last couple days URI/cough. Otherwise has been doing well.); negative for fatigue, weakness, body ache, fever(s), headache(s), chills, frequent falls, night sweats, daytime sleepiness, difficulty sleeping, excessive sweating, weight gain, weight loss, increased appetite, poor appetite or anorexia Eyes Eyes: Negative for blind spots, loss of peripheral vision, transient loss of vision, blurry vision, change in vision, double vision, floaters, tunnel vision or other ENT ENT: Negative for headache(s), dizziness, hearing loss, tinnitus, Nosebleed/epistaxis, balance problems, post nasal drip, lip swelling, tongue swelling, bleeding gums, hoarseness, neck pain, dry mouth or other Cardio Chest Pain: No Palpitations: No Edema: None Muscle aches with walking: None Resp Respiratory: Positive for Cough (Has URI, had bronchitis in October. Productive yellow sputum.); negative for SOB with activity, SOB at rest, SOB orthopnea\SOB lying down, Coughing up blood/hemoptysis, chest congestion, pain on inspiration, snoring, stridor, wheezing, crackles, paroxysmal nocturnal dyspnea or other GI GI: Negative nausea, vomiting, heartburn, constipation, belching, bloating, cramping, vomiting blood/hematemesis, bright, red blood in stools, black,tarry stools, loose stools, Difficulty Swallowing or other : Negative for hematuria, frequent nighttime urination/ nocturia, erectile dysfunction or abnormal vaginal bleeding Musc Musc: Negative for muscle aches/ myalgia, muscle weakness, joint pain or balance problems Skin Skin: Negative redness, non-healing lesions, rash, unusual bruising, skin ulcer, wounds, jaundice or other Neuro Neuro: Negative for dizziness, lightheadedness, near syncope, syncope, orthostatic symptoms, frequent falls, headache(s), weakness, confusion, memory loss, restless legs, blurry vision, double vision, vertigo, seizures, lack of coordination or other Samuel Hematologic/Lymphatic: Negative for easy bleeding, easy bruising, enlarged lymph nodes or other Endo Endo: Negative for fatigue, cold intolerance, heat intolerance, excessive sweating, flushing, increased thirst/drinking, increased hunger, hair loss, hair growth or other Psych Psych: Negative for anxiety, depression, thoughts of harming anyone, thoughts of harming yourself, visual hallucinations, panic attacks or audible hallucinations Allergy Allergy/Immunology: Negative for throat swelling, Negative for tongue swelling, Negative for hives, Negative for rash, Negative for lip swelling Cardiology Exam Const Appearance: cooperative, healthy appearing and no acute distress Nutritional Appearance: well nourished Orientation: alert, oriented x3 and oriented to person Head Head: normal to inspection, normocephalic and atraumatic Nose: external nose normal Face and Sinus: face symmetric Mouth: oral mucosae normal Eyes General: appearance normal, both eyes and all related structures Eyelids: eyelids normal Conjunctivae: conjunctivae normal Pupils: PERRL and normal by confrontation EOM: EOM intact bilaterally Neck Neck: normal visual inspection and full ROM Carotids: normal carotid upstroke Chest Chest inspection: normal inspection of the chest Auscultation: Bilateral: Clear to Auscultation Cardio Palpation: normal PMI Rate: regular rate Rhythm: regular rhythm Heart sounds: S1 normal and S2 normal GI GI: normal to inspection, no hepatosplenomegaly and bowel sounds present Neuro General: alert, awake, oriented x3, CN's II-XI intact bilaterally and moves all extremities Skin Skin: no rashes or lesions noted Extremities Pulses: Normal: Right Femoral Pulse, Left Femoral Pulse, Right Dorsalis Pedis Pulse, Left Dorsalis Pedis Pulse, Right Posterior Tibial Pulse, Left Posterior Tibial Pulse, Right Radial Pulse, Left Radial Pulse Lower Extremity Edema: None: Bilateral Psych Psychological: normal affect Assessment & Plan 1. Abnormal stress echo Will proceed with a diagnostic heart cath, will follow with pt based on findings. 2. Hyperlipidemia E78.5 Recommend obtaining a fasting lipid profile. If her LDL is greater than 70, would consider starting her on statin based medications. 3. Nonrheumatic mitral (valve) insufficiency I34.0 Mild (1+) per echo 12/14/2017 The patient has a history of MR and TR, recommend repeat echocardiogram for valvular surveillance. Her sister had mitral valve repair surgery. <Joseph Ramon - Last Filed: 02/15/19 10:17> Problem List (1) Chest pain Status: Acute (2) Essential hypertension Status: Chronic History and Physical Interventional cardiology addendum: Patient seen and examined on day of procedure. The risk/benefits of the procedure were thoroughly explained the patient including specific attention to lack of on-site surgical back-up, and the patient is agreed to proceed. Left heart catheterization to follow.
--- NOTE | 2019-02-15 10:25 | CL.D_ITS ---
Patient Name: MARIANNE JOYCE Study Date: 02/15/2019 Performing: Joseph Ramon MD Ht: 63 inches 160.02 cm : 1955 Wt: 187.79 lbs 85.18 kg Age: 63 Gender: female BSA: 1.88 PROCEDURE(S) PERFORMED DX18-QMU/COR/LV CLINICAL PROFILE AND INDICATIONS Indications: New Onset Angina <= 2 months, Suspected CAD Heart Failure: None Stress/Imaging Date: 01/10/2019Stress Echocardiogram: Negative Angina Classification Anginal Classification w/in 2 Weeks: CCS III CAD Presentations: Unstable angina. 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 D/c alcohol. Manual sheath removal. DESCRIPTION OF PROCEDURE The patient arrived to the procedure lab. The risks and benefits of the procedure as well as a full d escription of our services here and current unavailability of surgical backup were fully explained to the patient and/or their significant other prior to the catheterization. The Timeout was completed, verifying the correct patient and procedure. The patient's procedural site was prepped and draped in the usual fashion. Local anesthetic was given subcutaneously to right groin region with Lidocaine 2%. Using a modified Seldinger technique, arterial access was obtained via the right femoral artery, a 4 Fr sheath was inserted Left Coronary Artery selective angiography was performed in multiple views us ing a 4 Fr. JL5 catheter. Right Coronary Artery selective angiography was then performed in multiple views using a 4 Fr. 3DRC catheter. Left Ventriculography was performed in OWUSU projection using a 4 Fr . Pigtail catheter. LV to AO pullback pressures were then recorded.The arterial sheath was pulled and manual compression applied until hemostasis is achieved. CORONARY ANGIOGRAPHY DOMINANCE: Right Dominant LEFT HEART ASSESSMENT Left Ventricular Ejection Fraction: by LV Gram 65 % Normal LV wall motion Normal Left Ventricular systolic function Normal Left Ventricular systolic function LVEDP: 5 mmHg LEFT MAIN: Angiographically normal, Angiographically normal LEFT ANTERIOR DESCENDING ARTERY: Angiographically normal, Angiographically normal CIRCUMFLEX ARTERY: Angiographically normal, Angiographically normal RIGHT CORONARY ARTERY: Angiographically normal Angiographically normal COMPLICATIONS No Complications PROCEDURE MEDICATIONS Versed 1 mg IV Oxygen: 2 L/min via nasal cannula SUMMARY OF HEMODYNAMIC DATA Time AIR REST ECG 08:18:21 AO 142/77 (105) SA 10:07:59 LV 138/-11, 18 10:13:26 LV 147/-15, 5 10:13:35 LVp 156/-17, 8 10:13:40 AOp 148/72 (106) 10:13:45 Signed By Joseph Ramon MD On 02/15/2019 10:24:46 Joseph Ramon MD
== END 2019-02-15 14:45 | disposition home or self-care (01) ==
LOC: CLSP 07:54
PROVIDERS: Family Provider Family Medicine; PCP Family Medicine; Referring Provider Internal Medicine Cardiovascular Disease; Visit Provider Internal Medicine Cardiovascular Disease
DX: I25.110 Atherosclerotic heart disease of native coronary artery with unstable angina pectoris (principal); E87.1 Hypo-osmolality and hyponatremia; I34.0 Nonrheumatic mitral (valve) insufficiency; I36.1 Nonrheumatic tricuspid (valve) insufficiency; M06.9 Rheumatoid arthritis, unspecified; I10 Essential (primary) hypertension; E78.5 Hyperlipidemia, unspecified; K21.9 Gastro-esophageal reflux disease without esophagitis; R94.39 Abnormal result of other cardiovascular function study; Z79.82 Long term (current) use of aspirin; Z79.899 Other long term (current) drug therapy; Z85.9 Personal history of malignant neoplasm, unspecified
CPT/HCPCS: 36415; 71046; 80048; 85027; 85610; 85730; 93458; 99152; 99153; J7040; Q9967; C1769; C1894

== ENCOUNTER → 2019-03-08 09:53 | Outpatient (CLI) | payer OTHER, SELFPAY ==
[2019-03-07 08:43] VITALS: BMI 33.2
[2019-03-08 12:51] LABS: Anion Gap 9 (5-15); BUN 7 mg/dL (7-18); Chloride 100 mmol/L (98-107); Creatinine, Serum 0.78 mg/dL (0.55-1.02); EST Glomerular Filtration Rate 79 mL/min (>60); Est Glom Filt Rate - Afr Amer 96 mL/min (>60); Glucose 83 mg/dL (74-106); Potassium 4.9 mmol/L (3.5-5.1); Sodium Level 131 mmol/L (136-145)
== END ==
PROVIDERS: Family Provider Family Medicine; PCP Family Medicine; Referring Provider Family Medicine; Visit Provider Family Medicine
DX: E87.1 Hypo-osmolality and hyponatremia (principal)
CPT/HCPCS: 36415; 80048

== ENCOUNTER → 2019-04-21 07:26 | Outpatient (CLI) | payer OTHER, SELFPAY ==
[2019-03-07 08:43] VITALS: BMI 33.2
[2019-04-21 10:08] LABS: Absolute Neutrophil Count 3.1 X10^3/uL (2.0-7.7); Basophil# 0.03 X10^3/uL; Basophil% 0.5 % (0-1); Eosinophil# 0.17 X10^3/uL; Eosinophils% 3.1 % (0-5); Hematocrit 42.5 % (37-47); Hemoglobin 14.3 g/dL (12.0-15.0); Lymphocyte % 29.3 % (19-41); Mean Corp Hgb Conc 33.6 g/dL (32-36); Mean Corpuscular Hgb 34.8 pg (27.0-32.0); Mean Corpuscular Volume 103.4 fL (81-99); Mean Platelet Vol. 9.4 fl (6.2-12.0); Monocyte# 0.56 X10^3/uL; Monocyte% 10.3 % (0-10); NRBC Flagged by Analyzer 0 % (0-5); Neutrophil # 3.07 X10^3/uL (2.7-7.7); Neutrophil % 56.3 % (47-70); Platelet Count 438 K/mm3 (150-450); RBC Distribution Width CV 14.1 % (11.6-14.6); RBC Distribution Width SD 52.6 fl (35.1-43.9); Red Blood Count 4.11 M/mm3 (4.2-5.4); White Blood Count 5.5 K/mm3 (4.4-11.0)
[2019-04-21 10:22] LABS: ALB/GLOB Ratio 0.8 RATIO (0.9-2.4); AST(SGOT) 17 U/L (15-37); Alanine Aminotransfer ALT/SGPT 23 U/L (13-56); Albumin, Serum 3.7 g/dL (3.2-5.0); Alkaline Phosphatase 99 U/L (45-117); Anion Gap 6 (5-15); BUN 8 mg/dL (7-18); BUN/Creat Ratio 10.5 RATIO (10-20); Calcium,Total 9.5 mg/dL (8.5-10.1); Chloride 99 mmol/L (98-107); Creatinine, Serum 0.76 mg/dL (0.55-1.02); EST Glomerular Filtration Rate 81 mL/min (>60); Est Glom Filt Rate - Afr Amer 98 mL/min (>60); Globulin 4.4 g/dL (2.2-4.2); Glucose 88 mg/dL (74-106); Potassium 4.1 mmol/L (3.5-5.1); Protein, Total 8.1 g/dL (6.4-8.2); Sodium Level 133 mmol/L (136-145)
== END ==
PROVIDERS: PCP Family Medicine; Referring Provider Internal Medicine Rheumatology; Visit Provider Internal Medicine Rheumatology
DX: M06.4 Inflammatory polyarthropathy (principal); M79.7 Fibromyalgia; M17.0 Bilateral primary osteoarthritis of knee; Z79.899 Other long term (current) drug therapy
CPT/HCPCS: 36415; 80053; 85025

== ENCOUNTER → 2019-07-10 13:02 | Outpatient (CLI) | payer OTHER, SELFPAY ==
[2019-07-06 09:24] VITALS: BMI 33.2
[2019-07-10 14:52] LABS: Absolute Lymphocyte Count 1.25 X10^3/uL (0.83-4.51); Absolute Neutrophil Count 3.7 X10^3/uL (2.0-7.7); Basophil# 0.02 X10^3/uL; Basophil% 0.4 % (0-1); Eosinophil# 0.06 X10^3/uL; Eosinophils% 1.1 % (0-5); Hematocrit 43.8 % (37-47); Hemoglobin 14.9 g/dL (12.0-15.0); Lymphocyte # 1.25 X10^3/ul (4.0); Mean Corpuscular Hgb 34.8 pg (27.0-32.0); Mean Corpuscular Volume 102.3 fL (81-99); Mean Platelet Vol. 9.7 fl (6.2-12.0); Monocyte# 0.68 X10^3/uL; NRBC Flagged by Analyzer 0 % (0-5); Neutrophil # 3.66 X10^3/uL (2.7-7.7); Neutrophil % 64.1 % (47-70); Platelet Count 321 K/mm3 (150-450); RBC Distribution Width CV 12.4 % (11.6-14.6); RBC Distribution Width SD 46.8 fl (35.1-43.9); Red Blood Count 4.28 M/mm3 (4.2-5.4); White Blood Count 5.7 K/mm3 (4.4-11.0)
[2019-07-10 15:04] LABS: ALB/GLOB Ratio 0.8 RATIO (0.9-2.4); AST(SGOT) 20 U/L (15-37); Alanine Aminotransfer ALT/SGPT 21 U/L (13-56); Albumin, Serum 3.6 g/dL (3.2-5.0); Alkaline Phosphatase 114 U/L (45-117); Anion Gap 8 (5-15); BUN 6 mg/dL (7-18); BUN/Creat Ratio 6.9 RATIO (10-20); Calcium,Total 9.2 mg/dL (8.5-10.1); Chloride 94 mmol/L (98-107); Creatinine, Serum 0.87 mg/dL (0.55-1.02); EST Glomerular Filtration Rate 69 mL/min (>60); Est Glom Filt Rate - Afr Amer 84 mL/min (>60); Globulin 4.4 g/dL (2.2-4.2); Glucose 103 mg/dL (74-106); Potassium 4.2 mmol/L (3.5-5.1); Sodium Level 129 mmol/L (136-145)
== END ==
PROVIDERS: PCP Family Medicine; Referring Provider Internal Medicine Rheumatology; Visit Provider Internal Medicine Rheumatology
DX: M06.4 Inflammatory polyarthropathy (principal); M79.7 Fibromyalgia; M17.0 Bilateral primary osteoarthritis of knee; K21.0 Gastro-esophageal reflux disease with esophagitis; F32.89 Other specified depressive episodes; Z79.899 Other long term (current) drug therapy
CPT/HCPCS: 36415; 80053; 85025

== ENCOUNTER → 2019-09-13 10:59 | Outpatient (CLI) | payer OTHER, SELFPAY ==
[2019-07-06 09:24] VITALS: BMI 33.2
[2019-09-13 12:30] LABS: Urine Sodium 28 mmol/L (Not Establ.)
[2019-09-13 13:40] LABS: Osmolality, Urine 255 mOsm/KG
[2019-09-20 05:21] LABS: Aldosterone, Serum 5.5 ng/dL (0.0-30.0)
== END ==
PROVIDERS: PCP Family Medicine; Visit Provider Internal Medicine Nephrology
DX: E87.1 Hypo-osmolality and hyponatremia (principal)
CPT/HCPCS: 36415; 82088; 82533; 83935; 84300

== ENCOUNTER → 2019-10-03 10:38 | Outpatient (CLI) | payer OTHER, SELFPAY ==
[2019-07-06 09:24] VITALS: BMI 33.2
[2019-10-03 12:05] LABS: Absolute Lymphocyte Count 0.81 X10^3/uL (0.83-4.51); Basophil# 0.04 X10^3/uL; Basophil% 0.7 % (0-1); Eosinophil# 0.14 X10^3/uL; Eosinophils% 2.6 % (0-5); Hematocrit 39.8 % (37-47); Hemoglobin 13.4 g/dL (12.0-15.0); Lymphocyte # 0.81 X10^3/ul (4.0); Lymphocyte % 14.9 % (19-41); Mean Corp Hgb Conc 33.7 g/dL (32-36); Mean Corpuscular Hgb 34.8 pg (27.0-32.0); Mean Corpuscular Volume 103.4 fL (81-99); Mean Platelet Vol. 9.3 fl (6.2-12.0); Monocyte# 0.44 X10^3/uL; Monocyte% 8.1 % (0-10); NRBC Flagged by Analyzer 0 % (0-5); Neutrophil # 3.99 X10^3/uL (2.7-7.7); Neutrophil % 73.3 % (47-70); Platelet Count 352 K/mm3 (150-450); RBC Distribution Width CV 14.2 % (11.6-14.6); RBC Distribution Width SD 52.5 fl (35.1-43.9); Red Blood Count 3.85 M/mm3 (4.2-5.4); White Blood Count 5.4 K/mm3 (4.4-11.0)
[2019-10-03 12:22] LABS: ALB/GLOB Ratio 0.8 RATIO (0.9-2.4); AST(SGOT) 20 U/L (15-37); Alanine Aminotransfer ALT/SGPT 23 U/L (13-56); Albumin, Serum 3.4 g/dL (3.2-5.0); Alkaline Phosphatase 95 U/L (45-117); Anion Gap 8 (5-15); BUN 10 mg/dL (7-18); BUN/Creat Ratio 10.9 RATIO (10-20); Calcium,Total 8.8 mg/dL (8.5-10.1); Chloride 97 mmol/L (98-107); Creatinine, Serum 0.92 mg/dL (0.55-1.02); EST Glomerular Filtration Rate 65 mL/min (>60); Est Glom Filt Rate - Afr Amer 79 mL/min (>60); Globulin 4.4 g/dL (2.2-4.2); Glucose 138 mg/dL (74-106); Phosphorus 3.9 mg/dL (2.5-4.9); Potassium 4.7 mmol/L (3.5-5.1); Protein, Total 7.8 g/dL (6.4-8.2); Sodium Level 132 mmol/L (136-145)
== END ==
PROVIDERS: PCP Family Medicine; Visit Provider Internal Medicine Rheumatology
DX: M06.4 Inflammatory polyarthropathy (principal); M79.7 Fibromyalgia; M15.9 Polyosteoarthritis, unspecified; K21.0 Gastro-esophageal reflux disease with esophagitis; F32.9 Major depressive disorder, single episode, unspecified; Z79.899 Other long term (current) drug therapy
CPT/HCPCS: 36415; 80053; 84100; 85025

== ENCOUNTER → 2019-10-11 12:08 | Outpatient (CLI) | payer OTHER, SELFPAY ==
[2019-07-06 09:24] VITALS: BMI 33.2
[2019-10-11 12:40] LABS: Potassium 4.3 mmol/L (3.5-5.1)
[2019-10-11 12:45] LABS: Urine Sodium 24 mmol/L (Not Establ.)
[2019-10-11 13:41] LABS: Osmolality, Serum 270 mOsm/KG (280-301); Osmolality, Urine 374 mOsm/KG
== END ==
PROVIDERS: PCP Family Medicine; Visit Provider Internal Medicine Nephrology
DX: E87.1 Hypo-osmolality and hyponatremia (principal)
CPT/HCPCS: 36415; 82570; 83930; 83935; 84132; 84133; 84300

== ENCOUNTER → 2020-01-03 12:11 | Outpatient (CLI) | payer MEDICARE, SELFPAY ==
[2019-07-06 09:24] VITALS: BMI 33.2
[2020-01-03 15:16] LABS: Absolute Lymphocyte Count 1.32 X10^3/uL (0.83-4.51); Basophil# 0.05 X10^3/uL; Eosinophil# 0.17 X10^3/uL; Eosinophils% 3.3 % (0-5); Hematocrit 38.1 % (37-47); Hemoglobin 12.6 g/dL (12.0-15.0); Lymphocyte # 1.32 X10^3/ul (4.0); Lymphocyte % 25.8 % (19-41); Mean Corp Hgb Conc 33.1 g/dL (32-36); Mean Corpuscular Hgb 34.6 pg (27.0-32.0); Mean Corpuscular Volume 104.7 fL (81-99); Mean Platelet Vol. 10.1 fl (6.2-12.0); Monocyte# 0.56 X10^3/uL; NRBC Flagged by Analyzer 0 % (0-5); Neutrophil # 2.99 X10^3/uL (2.7-7.7); Neutrophil % 58.5 % (47-70); Platelet Count 374 K/mm3 (150-450); RBC Distribution Width CV 12.7 % (11.6-14.6); RBC Distribution Width SD 48.9 fl (35.1-43.9); Red Blood Count 3.64 M/mm3 (4.2-5.4); White Blood Count 5.1 K/mm3 (4.4-11.0)
[2020-01-03 15:35] LABS: ALB/GLOB Ratio 0.8 RATIO (0.9-2.4); AST(SGOT) 17 U/L (15-37); Alanine Aminotransfer ALT/SGPT 24 U/L (13-56); Albumin, Serum 3.5 g/dL (3.2-5.0); Alkaline Phosphatase 82 U/L (45-117); Anion Gap 4 (5-15); BUN 10 mg/dL (7-18); BUN/Creat Ratio 12.1 RATIO (10-20); Chloride 99 mmol/L (98-107); Creatinine, Serum 0.83 mg/dL (0.55-1.02); EST Glomerular Filtration Rate 73 mL/min (>60); Est Glom Filt Rate - Afr Amer 89 mL/min (>60); Globulin 4.4 g/dL (2.2-4.2); Glucose 91 mg/dL (74-106); Potassium 4.7 mmol/L (3.5-5.1); Protein, Total 7.9 g/dL (6.4-8.2); Sodium Level 132 mmol/L (136-145)
== END ==
PROVIDERS: PCP Family Medicine; Referring Provider Internal Medicine Rheumatology; Visit Provider Internal Medicine Rheumatology
DX: M06.4 Inflammatory polyarthropathy (principal); Z79.899 Other long term (current) drug therapy; M79.7 Fibromyalgia; M15.9 Polyosteoarthritis, unspecified; M17.0 Bilateral primary osteoarthritis of knee; K21.0 Gastro-esophageal reflux disease with esophagitis; F32.9 Major depressive disorder, single episode, unspecified
CPT/HCPCS: 36415; 80053; 85025

== ENCOUNTER → 2020-03-21 11:57 | Outpatient (CLI) | payer MEDICARE, SELFPAY ==
[2019-07-06 09:24] VITALS: BMI 33.2
[2020-01-25 09:01] VITALS: BMI 34.3
[2020-03-21 15:32] LABS: Absolute Lymphocyte Count 1.21 X10^3/uL (0.83-4.51); Absolute Neutrophil Count 2.8 X10^3/uL (2.0-7.7); Basophil# 0.02 X10^3/uL; Basophil% 0.4 % (0-1); Eosinophil# 0.14 X10^3/uL; Hematocrit 40.9 % (37-47); Hemoglobin 13.7 g/dL (12.0-15.0); Lymphocyte # 1.21 X10^3/ul (4.0); Lymphocyte % 26.1 % (19-41); Mean Corp Hgb Conc 33.5 g/dL (32-36); Mean Corpuscular Hgb 33.7 pg (27.0-32.0); Mean Corpuscular Volume 100.7 fL (81-99); Mean Platelet Vol. 9.3 fl (6.2-12.0); Monocyte% 8.6 % (0-10); NRBC Flagged by Analyzer 0 % (0-5); Neutrophil # 2.84 X10^3/uL (2.7-7.7); Neutrophil % 61.5 % (47-70); Platelet Count 306 K/mm3 (150-450); RBC Distribution Width CV 13.7 % (11.6-14.6); RBC Distribution Width SD 51.2 fl (35.1-43.9); Red Blood Count 4.06 M/mm3 (4.2-5.4); White Blood Count 4.6 K/mm3 (4.4-11.0)
[2020-03-21 15:52] LABS: ALB/GLOB Ratio 0.9 RATIO (0.9-2.4); AST(SGOT) 19 U/L (15-37); Alanine Aminotransfer ALT/SGPT 28 U/L (13-56); Albumin, Serum 3.7 g/dL (3.2-5.0); Alkaline Phosphatase 88 U/L (45-117); Anion Gap 5 (5-15); BUN 12 mg/dL (7-18); BUN/Creat Ratio 14.1 RATIO (10-20); Calcium,Total 8.9 mg/dL (8.5-10.1); Chloride 100 mmol/L (98-107); Creatinine, Serum 0.85 mg/dL (0.55-1.02); EST Glomerular Filtration Rate 71 mL/min (>60); Est Glom Filt Rate - Afr Amer 86 mL/min (>60); Globulin 3.9 g/dL (2.2-4.2); Glucose 87 mg/dL (74-106); Potassium 4.8 mmol/L (3.5-5.1); Protein, Total 7.6 g/dL (6.4-8.2); Sodium Level 130 mmol/L (136-145)
== END ==
PROVIDERS: PCP Family Medicine; Referring Provider Internal Medicine Nephrology; Visit Provider Internal Medicine Nephrology
DX: E87.1 Hypo-osmolality and hyponatremia (principal); M06.4 Inflammatory polyarthropathy; M79.7 Fibromyalgia; M15.9 Polyosteoarthritis, unspecified; F32.9 Major depressive disorder, single episode, unspecified
CPT/HCPCS: 36415; 80053; 85025

== ENCOUNTER → 2020-04-30 08:32 | Outpatient (CLI) | payer MEDICARE, SELFPAY ==
[2020-01-25 09:01] VITALS: BMI 34.3
--- NOTE | 2020-04-30 08:34 | BI_ITS ---
MAMMOGRAPHY - BILATERAL SCREENING REASON FOR EXAM: Female, 64 years old. Routine annual screening examination. PERTINENT HISTORY: Non-contributory. TECHNIQUE: Digital bilateral breast margarita (3D mammographic acquisition) in the CC and MLO projections. 2-D mediolateral oblique (MLO) and craniocaudad (CC) views of both breasts were obtained. CAD: Full Field Digital Mammography with Computer Added Detection was performed. COMPARISON: Comparison is made with prior study dated 11/18/2018 and 07/30/2017. FINDINGS: Breast Composition: The breasts are heterogeneously dense, which may obscure small masses. There are no dominant masses or suspicious calcifications. Stable benign-appearing bilateral axillary lymph nodes. No other significant abnormalities are identified. There has been no significant change since the prior study. BI/SCRN MAMM (CAD)W/MARGARITA BILAT IMPRESSION: Stable bilateral screening mammogram. Yearly follow-up mammogram recommended. (A) ASSESSMENT CATEGORY: BIRADS Category 2: Benign. A letter regarding these results will be sent to the patient by the facility within 30 days. Approximately 10% of breast cancers are not detected by mammography. A normal mammogram should not delay biopsy of a clinically suspicious abnormality. [id number] Electronically Signed: Bello Martinez MD at 9:18 EST , Service support ,
--- NOTE | 2020-04-30 08:47 | BD_ITS ---
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 COMPARISON: None. FINDINGS: Lumbar Spine (L1-L4): g/cm2 (1.129) / T-score (-0.4) / Z-score (1.2) Findings are suggestive of normal bone density with a low fracture risk. Left Femur Total: g/cm2 (0.883) / T-score (-1.0) / Z-score (0.3) Left Femoral Neck: g/cm2 (0.827) / T-score (-1.5) / Z-score (0.0) Right Femur Total: g/cm2 (0.915) / T-score (0.7) / Z-score (0.5) Right Femoral Neck: g/cm2 (0.915) / T-score (-0.9) / Z-score (0.6) BD/Dexa Bone Density Study IMPRESSION: The patient is considered osteopenic as outlined below according to World Donnie Organization (WHO) criteria with a low fracture risk. Reference Information: The T-score is the number of standard deviations above or below the standard which is normal for young adults at their peak bone mineral density. The World Health Organization (WHO) interprets the T-scores as follows: Above -1 Normal bone density Between -1 and -2.5 Osteopenia Equal to / or below -2.5 Osteoporosis As a practical clinical guideline, osteopenia may be graded as follows: Mild -1 through -1.5 Moderate -1.6 through -2.0 Severe -2.1 through -2.4 The Z-score is the number of standard deviations above or below age-matched controls. A Z-score of less than -1.5 would be considered abnormal. References: 1. NIH Osteoporosis and Related Bone Diseases www osteo.org 2. International Society for Clinical Densitometry www iscd.org 3. National Osteoporosis Foundation www nof.org Electronically Signed: Bello Martinez MD at 12:48 EST , Service support ,
== END ==
PROVIDERS: PCP Family Medicine; Visit Provider Family Medicine
DX: Z78.0 Asymptomatic menopausal state (principal); Z12.31 Encounter for screening mammogram for malignant neoplasm of breast
CPT/HCPCS: 77063; 77067; 77080

== ENCOUNTER 2020-05-20 09:11 | Day surgery (SDC) | payer MEDICARE, SELFPAY ==
[2020-01-25 09:01] VITALS: BMI 34.3
[2020-05-20 09:30] VITALS: BP 123/76; PULSE 79; RESP 14; TEMP 36.8; O2SAT 100; BMI 33.6
[2020-05-20] MEDS: Lactated Ringers 1,000 ML 100 ML IV (09:51)
--- NOTE | 2020-05-20 10:30 | COLBX_PTH ---
PATIENT: MARIANNE JOYCE LOC: EN U#:[id number] AGE/SX: 64/F ROOM: RE05/20/[address]: Dr. Rayna Sandoval MD : 1955 BED: DIS: 05/20/2020 SPEC #: [id number] RECD: 05/20/20 11:39 STATUS: KACI REBlaire #: [id number] CHICHO: 05/20/20 10:[address]: Rayna Sandoval DEPT: SURGICAL PATHOLOGY RECD BY: Nicki Ellis ENTERED: 05/20/20 13:48 SP TYPE: COLON BX OTHR DR: Dr. Cristóbal Nielsen MD Tissues: Cecum, NOS Procedures: Surgery Specimen Level IV HEADER OPERATION: Colonoscopy - open access (MAC) PRE-OP DIAGNOSIS: Screening, family history colon cancer TISSUE SUBMITTED: Cecum polyp MICROSCOPIC DIAGNOSIS Cecal polyp, biopsy: Fragments of tubular adenoma. AM:beena 05/21/2020 MICROSCOPIC DESCRIPTION Slides are reviewed. GROSS DESCRIPTION Received in fixative is one container labeled with the patient's name and designated cecal polyp. The specimen consists of multiple irregular fragments of light muhammad soft tissue that in aggregate measure 2.2 x 1 x 0.3 cm. The specimen is totally submitted in one cassette. / AM:beena 05/20/20 TC:5 CPT: 35515
--- NOTE | 2020-05-20 10:42 | HP.PCM_ITS ---
History of Present Illness Date of Admission: 05/20/20 The patient is a 64 year old F presents for screening colonoscopy due to family history of colon cancer. Patient's mother was 54 and she was diagnosed with colon cancer. Patient last colonoscopy was 5 years ago negative per patient. Denies any chronic abdominal pain/nausea/vomiting/reflux. Patient states she has bowel moods mostly every day denies any blood. Past Medical/Surgical History - Planned Operation Planned Operative Procedure/s: Colonoscopy Date of Operative Procedure: 05/20/20 Permit Signed: No S.O.S: No Is This Patient Having a Total Joint: No - Previous Hospitalizations/Surgeries HX Hospitalizations: Yes HX of Surgeries: PARTIAL HYSTERECTOMY 1998. SKIN CANCER 2010. PLANTAR FASCIOTOMY 2013 Any Problems With Anesthesia: Yes - NAUSEA AND VOMITING You/Your Family Experience Fever (Hyperthermia) With Anes: No Cholinesterase deficiency: No - Cardiovascular Hx Chest Pain within Last 2 months: No Hx of Irregular Heartbeat and/or Afib: No Hx Heart Attack: No Hx Congestive Heart Failure: No Hx Rheumatic Fever: No Hx Hypertension: Yes - Controlled with meds Hx Internal Defibrillator: No Hx Pacemaker: No Hx Cardiac Catheterization: Yes - [facility] 02/2019 What facility was last heart cath performed: [facility] Date of last Heart Cath: 02/2019 Hx Cardiac Surgery/Stents/Etc.: No Hx Stress Test: Yes - 2015 Hx Pain in Legs when Walking/Leg Cramps: No - Respiratory Chronic Cough: No HX of Shortness of Breath: No Hoarseness: No Hx Chronic Obstructive Pulmonary Disease (COPD): No Hx Asthma: No Hx Emphysema: No Hx Sleep Apnea: No CPAP: No BIPAP: No Hx Respiratory Tract Infection/Cold (presently): No Do You Snore Loudly (louder than talking or can be heard): Yes Do You Often Feel Tired/ Fatigued/ Sleepy Dring Daytime?: No Has Anyone Observed You Stop Breathing During Sleep?: No Result (for STOP score): Positive Hx Smoking: No Smoking Status: Never smoker - Gastrointestinal Hx Gastroesophageal Reflux: No Controlled With Meds: Yes - ON PROTONIX Hx Gastrointestinal Disorders: No Hx Gastrointestinal Bleed: No Hx Ulcer: No Hx Hiatal Hernia: No Difficulty Chewing/Swallowing: No Recent Onset of Swallowing Problems: No Special diet followed at home: No Hx Unplanned Weight Loss of 20#: No HX Unplanned Weight Gain of 20#: No - Neurological Hx Seizures: No HX Syncope/Blackout Spells/Unconsciousness: No Hx CVA/Stroke: No Hx Transient Ischemic Attacks (TIA): No Hx Multiple Sclerosis: No Hx Parkinson's Disease: No Hx Head/Neck Injury: Yes - Multiple concussions Hx Headaches: No Hx Back Injury/Pain: No Recent Onset of Speech Difficulty: No Restless Legs: No Does patient have nerve stimulator: No - Blood Disorder Hx Leukemia: No Bleeding Tendencies: No Hx Deep Vein Thrombosis: No Hx High Cholesterol: No Blood Transmitted Disease: No Hx Hepatitis: No Hx Cirrhosis: No Hx Anemia: No Hx Blood Disorders: No - Reproduction Is Patient Lactating: No Hx Hysterectomy: Yes Are You Post Menopause: Yes - Genitourinary Hx Renal Disease: No - Musculoskeletal Hx Arthritis: Yes - SEES DR PURI Hx Rheumatoid Arthritis: No Hx Gout: No Recent Onset of an Orthopedic Problem: No - Endocrine Hx Diabetes: No Thyroid Disease: No Hx Steroid Therapy: No - Psycho/Social Hx Substance Use: No Hx Alcohol Use: Yes - Occasional Hx Anxiety: No Hx Depression: No Mental Illness: No Hx Dementia: No - Miscellaneous Hx Cancer: Yes - SKIN CANCER Recent Exposure to Contagious Disease: No Active MRSA: No Hx of C-Diff: No Any Loose Teeth: No Allergies No Known Allergies Allergy (Verified 05/15/20 11:56) - Discharge Is Pt Admitted From a Retirement, or a Fpc: No Who Could Help: Family If Assistance is Needed at Home, What is Needed: Other (see comments) Special Equipment Used at Home: Pt instructed will need responsible person to provide transporation and encouraged to have someone at home with pt following procedure After D/C, Where Do you Plan to Go: Return Home - From the PAT History Number of Risk Factors: 3 - Physical Exam Vitals/I&O's: Vital Signs Temp Pulse Resp BP Pulse Ox 98.3 F 79 14 123/76 H 100 05/20/20 09:30 05/20/20 09:30 05/20/20 09:30 05/20/20 09:30 05/20/20 09:30 Oxygen Delivery Method Room Air Weight: 190 lb 0.615 oz Body Mass Index (BMI) 33.6 General: Alert, Oriented x3, Cooperative, No apparent distress HEENT: Atraumatic Lungs: Normal air movement Cardiovascular: Regular rate Abdomen: Soft, Non Tender, Non-Distended Extremities: No clubbing, No cyanosis, No edema Neurological: Cranial nerves II-XII grossly intact Psych/Mental Status: Normal Affect Microbiology Past 72 Hours 05/17/20 08:45 Interface Orders SARS-CoV-2 Antigen (Rapid) - Final Current Medications Lactated Ringer's () 1,000 mls @ 100 mls/hr IV .Q10H WILL Last Admin: 05/20/20 09:51 Dose: 100 mls/hr Documented by: Assessment/Plan All Active Problems (Last Reviewed 01/25/20 @ 13:47 by Juanis Stoll PA, PA) Acute bronchitis (Acute) Chest pain (Acute) 64-year-old female with family history of colon cancer?mother at age 54 diagnosed Procedure Criteria Procedure Type: Elective COVID Risk Discussion: The surgeon/proceduralist and patient have discussed in detail the risk of exposure to and/or potential harm posed by the COVID-19 virus with having a surgery/procedure at this time versus the risk of delaying the surgery/procedure. It is not possible to know either the risk of delaying the surgery or procedure or chance of getting an infection with perfect accuracy, but a joint decision was made between the patient and the surgeon/proceduralist to proceed at this time with the scheduled surgery/procedure as indicated on the consent form. Surgery Risks - Colonoscopy I discussed with the patient the risks of the procedure: Yes Risks Include but are not Limited To: Risks include but are not limited to: Bleeding, perforation requiring further surgery, inability to complete colonoscopy requiring barium enema.
[2020-05-20 11:25] VITALS: BP 107/70; BP 123/76; PULSE 64; RESP 16; TEMP 36.6; O2SAT 100
[2020-05-20 11:30] VITALS: BP 104/69; BP 123/76; PULSE 61; RESP 16; O2SAT 100
--- NOTE | 2020-05-20 11:33 | OP.COLON_ITS ---
Patient Name: Maryam Do Procedure Date: 05/20/2020 10:47 AM Date of : 1955 Age: 64 Procedure: Colonoscopy Indications: Screening in patient at increased risk: Family history of 1st-degree relative with colorectal cancer before age 60 years Providers: Rayna Sandoval MD Referring MD: Cristóbal Nielsne Medicines: Monitored Anesthesia Care Patient Profile: This is a 64 year old female. Last Colonoscopy: 5 years ago. Complications: No immediate complications. Procedure: Pre-Anesthesia Assessment: - Prior to the procedure, a History and Physical was performed, and patient medications and allergies were reviewed. The patient's tolerance of previous anesthesia was also reviewed. The risks and benefits of the procedure and the sedation options and risks were discussed with the patient. All questions were answered, and informed consent was obtained. Prior Anticoagulants: The patient has taken no previous anticoagulant or antiplatelet agents. ASA Grade Assessment: Per anesthesia. After reviewing the risks and benefits, the patient was deemed in satisfactory condition to undergo the procedure. After I obtained informed consent, the scope was passed under direct vision. Throughout the procedure, the patient's blood pressure, pulse, and oxygen saturations were monitored continuously. The Colonoscope was introduced through the anus and advanced to the cecum, identified by the appendiceal orifice, ileocecal valve and palpation. The colonoscopy was performed without difficulty. The patient tolerated the procedure well. The quality of the bowel preparation was good. Scope In: 10:59:56 AM Scope Withdrawal Time 0 hours 9 minutes 17 seconds Scope Out: 11:22:59 AM Total Procedure Duration Time 0 hours 23 minutes 3 seconds Findings: Hemorrhoids were found on perianal exam. A single small-mouthed diverticulum was found in the sigmoid colon. A 4 mm polyp was found in the cecum. The polyp was semi-pedunculated. The polyp was removed with a hot snare. Resection and retrieval were complete. The exam was otherwise without abnormality. Impression: - Hemorrhoids found on perianal exam. - Diverticulosis in the sigmoid colon. - One 4 mm polyp in the cecum, removed with a hot snare. Resected and retrieved. - The examination was otherwise normal. Recommendation: - Discharge patient to home. - High fiber diet. - Continue present medications. - Await pathology results. - Repeat colonoscopy in 3 years for surveillance based on pathology results. Procedure Code(s): --- Professional --- 77976, PT, Colonoscopy, flexible; with removal of tumor(s), polyp(s), or other lesion(s) by snare technique Diagnosis Code(s): --- Professional --- Z80.0, Family history of malignant neoplasm of digestive organs K64.9, Unspecified hemorrhoids D12.0, Benign neoplasm of cecum K57.30, Diverticulosis of large intestine without perforation or abscess without bleeding CPT copyright 2017 [employer]. All rights reserved. The codes documented in this report are preliminary and upon hcc coders review may be revised to meet current compliance requirements. MD Rayna Bowman MD 05/20/2020 11:32:32 AM This report has been signed electronically. Number of Addenda: 0 Note Initiated On: 05/20/2020 10:47 AM
--- NOTE | 2020-05-20 11:33 | OP.CCLET_ITS ---
05/20/2020 Cristóbal Nielsen [address] [place] [address] Re : Colonoscopy procedure for Maryam Do Dear Dr. Nielsen This procedure was performed on Wednesday, May 20, 2020. My impressions and recommendations are as follows: Impressions : - Hemorrhoids found on perianal exam. - Diverticulosis in the sigmoid colon. - One 4 mm polyp in the cecum, removed with a hot snare. Resected and retrieved. - The examination was otherwise normal. Recommendations : - Discharge patient to home. - High fiber diet. - Continue present medications. - Await pathology results. - Repeat colonoscopy in 3 years for surveillance based on pathology results. My findings are described in the full procedure note, which is enclosed. If I can be of further assistance, please feel free to contact me at Doctor phone number(s): , Work: . Sincerely, MD Rayna Bowman MD 05/20/2020 11:32:32 AM This report has been signed electronically.
[2020-05-20 11:35] VITALS: BP 117/70; BP 123/76
[2020-05-20 11:36] VITALS: BP 122/77; BP 123/76; PULSE 59; RESP 16; TEMP 36.8; O2SAT 100
[2020-05-20 12:03] VITALS: BP 123/76
== END 2020-05-20 12:16 | disposition home or self-care (01) ==
LOC: EN 09:12 → AC 09:12
PROVIDERS: PCP Family Medicine; Referring Provider Family Medicine; Visit Provider Surgery
PROC: 0DJD8ZZ Inspection of Lower Intestinal Tract, Via Natural or Artificial Opening Endoscopic (ICD-10-PCS; CPT 45378; principal; 2020-05-20 10:25)
DX: Z12.11 Encounter for screening for malignant neoplasm of colon (principal); D12.0 Benign neoplasm of cecum; K64.9 Unspecified hemorrhoids; K57.30 Diverticulosis of large intestine without perforation or abscess without bleeding; K21.9 Gastro-esophageal reflux disease without esophagitis; I10 Essential (primary) hypertension; M19.90 Unspecified osteoarthritis, unspecified site; Z85.828 Personal history of other malignant neoplasm of skin; Z80.0 Family history of malignant neoplasm of digestive organs; Z20.822 Contact with and (suspected) exposure to COVID-19; Z79.82 Long term (current) use of aspirin; Z79.899 Other long term (current) drug therapy
CPT/HCPCS: 45385; 87426; 88305; C9803; J7120; J2405

== ENCOUNTER → 2020-06-13 07:29 | Outpatient (CLI) | payer MEDICARE, SELFPAY ==
[2020-05-20 09:30] VITALS: BMI 33.6
[2020-06-13 10:14] LABS: Absolute Lymphocyte Count 1.28 X10^3/uL (0.83-4.51); Absolute Neutrophil Count 2.8 X10^3/uL (2.0-7.7); Basophil# 0.04 X10^3/uL; Basophil% 0.8 % (0-1); Eosinophil# 0.18 X10^3/uL; Eosinophils% 3.7 % (0-5); Hematocrit 34.4 % (37-47); Hemoglobin 11.6 g/dL (12.0-15.0); Lymphocyte # 1.28 X10^3/ul (4.0); Lymphocyte % 26.5 % (19-41); Mean Corp Hgb Conc 33.7 g/dL (32-36); Mean Corpuscular Hgb 35.3 pg (27.0-32.0); Mean Corpuscular Volume 104.6 fL (81-99); Mean Platelet Vol. 9.6 fl (6.2-12.0); Monocyte# 0.52 X10^3/uL; Monocyte% 10.8 % (0-10); NRBC Flagged by Analyzer 0 % (0-5); Neutrophil # 2.79 X10^3/uL (2.7-7.7); Neutrophil % 57.8 % (47-70); Platelet Count 369 K/mm3 (150-450); RBC Distribution Width CV 13.1 % (11.6-14.6); RBC Distribution Width SD 50.1 fl (35.1-43.9); Red Blood Count 3.29 M/mm3 (4.2-5.4); White Blood Count 4.8 K/mm3 (4.4-11.0)
[2020-06-13 10:41] LABS: BUN 11 mg/dL (7-18); Creatinine, Serum 0.73 mg/dL (0.55-1.02); Glucose 79 mg/dL (74-106)
[2020-06-13 10:42] LABS: AST(SGOT) 21 U/L (15-37); Alanine Aminotransfer ALT/SGPT 22 U/L (13-56); Albumin, Serum 3.7 g/dL (3.2-5.0); Alkaline Phosphatase 73 U/L (45-117); Anion Gap 8 (5-15); Calcium,Total 9.1 mg/dL (8.5-10.1); Chloride 96 mmol/L (98-107); EST Glomerular Filtration Rate 84 mL/min (>60); Est Glom Filt Rate - Afr Amer 102 mL/min (>60); Globulin 3.8 g/dL (2.2-4.2); Potassium 4.5 mmol/L (3.5-5.1); Protein, Total 7.5 g/dL (6.4-8.2); Sodium Level 130 mmol/L (136-145)
== END ==
PROVIDERS: PCP Family Medicine; Referring Provider Internal Medicine Rheumatology; Visit Provider Internal Medicine Rheumatology
DX: M06.4 Inflammatory polyarthropathy (principal); Z79.899 Other long term (current) drug therapy; M79.7 Fibromyalgia; M17.0 Bilateral primary osteoarthritis of knee; M18.0 Bilateral primary osteoarthritis of first carpometacarpal joints; K21.9 Gastro-esophageal reflux disease without esophagitis; F32.9 Major depressive disorder, single episode, unspecified
CPT/HCPCS: 36415; 80053; 85025

== ENCOUNTER → 2020-10-02 09:51 | Outpatient (CLI) | payer MEDICARE, SELFPAY ==
[2020-10-02 10:00] LABS: Bacteria 0 SEEN /hpf (None Seen); Mucous, Urine 0 SEEN /hpf (<or=2+); Red Blood Cells-Urine 0 SEEN /hpf (0-5); Squamous Epithelial Cells - UA 0 SEEN /hpf (5-10); White Blood Cells 0 SEEN /hpf (0-5)
[2020-10-02 12:19] LABS: Absolute Lymphocyte Count 0.85 X10^3/uL (0.83-4.51); Absolute Neutrophil Count 2.4 X10^3/uL (2.0-7.7); Basophil# 0.03 X10^3/uL; Basophil% 0.8 % (0-1); Eosinophil# 0.07 X10^3/uL; Eosinophils% 1.9 % (0-5); Hematocrit 32.9 % (37-47); Hemoglobin 11.5 g/dL (12.0-15.0); Lymphocyte # 0.85 X10^3/ul (0.83-4.51); Mean Corpuscular Hgb 35.1 pg (27.0-32.0); Mean Corpuscular Volume 100.3 fL (81-99); Mean Platelet Vol. 9.5 fl (6.2-12.0); Monocyte% 8.1 % (0-10); NRBC Flagged by Analyzer 0 % (0-5); Neutrophil # 2.41 X10^3/uL (2.7-7.7); Neutrophil % 65.4 % (47-70); Platelet Count 354 K/mm3 (150-450); RBC Distribution Width CV 12.1 % (11.6-14.6); RBC Distribution Width SD 45.1 fl (35.1-43.9); Red Blood Count 3.28 M/mm3 (4.2-5.4); White Blood Count 3.7 K/mm3 (4.4-11.0)
[2020-10-02 12:21] LABS: Color, Urine Yellow (Yellow); Glucose, Dipstick Normal (Normal); Ketone-Dipstick Negative (Negative); Leukocyte Esterase-Dipstick Negative /ul (Negative); Nitrite-Dipstick Negative (Negative); Occult Blood-Urine Negative /ul (Negative); Protein-Dipstick Negative (Negative); Urine Bilirubin Dipstick Negative (Negative); Urine Clarity Clear (Clear); Urine Urobilinogen Normal (Normal); Urine pH 6.5 (5.0 - 8.0)
[2020-10-02 12:29] LABS: Cholesterol 167 mg/dL (200); High Density Lipoprotein 94 mg/dL; Triglycerides 61 mg/dL; Very Low Density Lipoprotein 12 mg/dL (5-40)
[2020-10-02 12:31] LABS: ALB/GLOB Ratio 0.9 RATIO (0.9-2.4); AST(SGOT) 18 U/L (15-37); Alanine Aminotransfer ALT/SGPT 19 U/L (13-56); Albumin, Serum 3.5 g/dL (3.2-5.0); Alkaline Phosphatase 70 U/L (45-117); Anion Gap 9 (5-15); BUN 5 mg/dL (7-18); BUN/Creat Ratio 7.1 RATIO (10-20); Calcium,Total 8.5 mg/dL (8.5-10.1); Chloride 92 mmol/L (98-107); EST Glomerular Filtration Rate 89 mL/min (>60); Est Glom Filt Rate - Afr Amer 107 mL/min (>60); Globulin 3.8 g/dL (2.2-4.2); Glucose 76 mg/dL (74-106); Potassium 4.3 mmol/L (3.5-5.1); Protein, Total 7.3 g/dL (6.4-8.2); Sodium Level 126 mmol/L (136-145)
== END ==
PROVIDERS: PCP Family Medicine; Referring Provider Internal Medicine Rheumatology; Visit Provider Internal Medicine Rheumatology
DX: M06.4 Inflammatory polyarthropathy (principal); M79.7 Fibromyalgia; M17.0 Bilateral primary osteoarthritis of knee; M18.0 Bilateral primary osteoarthritis of first carpometacarpal joints; K21.9 Gastro-esophageal reflux disease without esophagitis; F32.9 Major depressive disorder, single episode, unspecified; I10 Essential (primary) hypertension; Z79.899 Other long term (current) drug therapy
CPT/HCPCS: 36415; 80053; 80061; 81001; 85025

== ENCOUNTER → 2020-11-05 12:12 | Outpatient (CLI) | payer MEDICARE, SELFPAY ==
[2020-11-05 13:07] LABS: Urine Sodium 18 mmol/L (Not Establ.)
[2020-11-05 13:12] LABS: Osmolality, Urine 631 mOsm/KG
[2020-11-05 13:13] LABS: Anion Gap 6 (5-15); BUN 7 mg/dL (7-18); BUN/Creat Ratio 8.4 RATIO (10-20); Chloride 100 mmol/L (98-107); Creatinine, Serum 0.83 mg/dL (0.55-1.02); EST Glomerular Filtration Rate 73 mL/min (>60); Est Glom Filt Rate - Afr Amer 88 mL/min (>60); Glucose 95 mg/dL (74-106); Potassium 4.3 mmol/L (3.5-5.1); Sodium Level 132 mmol/L (136-145)
== END ==
PROVIDERS: PCP Family Medicine; Visit Provider Internal Medicine Nephrology
DX: E87.1 Hypo-osmolality and hyponatremia (principal)
CPT/HCPCS: 36415; 80048; 83935; 84300

== ENCOUNTER → 2020-11-26 12:56 | Outpatient (CLI) | payer MEDICARE, SELFPAY ==
[2020-11-26 15:10] LABS: Absolute Lymphocyte Count 1.09 X10^3/uL (0.83-4.51); Absolute Neutrophil Count 3.6 X10^3/uL (2.0-7.7); Basophil# 0.03 X10^3/uL; Basophil% 0.6 % (0-1); Eosinophil# 0.13 X10^3/uL; Eosinophils% 2.4 % (0-5); Hematocrit 34.2 % (37-47); Hemoglobin 11.8 g/dL (12.0-15.0); Lymphocyte # 1.09 X10^3/ul (0.83-4.51); Lymphocyte % 20.1 % (19-41); Mean Corp Hgb Conc 34.5 g/dL (32-36); Mean Corpuscular Hgb 35.6 pg (27.0-32.0); Mean Corpuscular Volume 103.3 fL (81-99); Mean Platelet Vol. 9.8 fl (6.2-12.0); Monocyte# 0.54 X10^3/uL; Monocyte% 9.9 % (0-10); NRBC Flagged by Analyzer 0 % (0-5); Neutrophil # 3.62 X10^3/uL (2.7-7.7); Neutrophil % 66.6 % (47-70); Platelet Count 334 K/mm3 (150-450); RBC Distribution Width CV 13.5 % (11.6-14.6); RBC Distribution Width SD 51.3 fl (35.1-43.9); Red Blood Count 3.31 M/mm3 (4.2-5.4); White Blood Count 5.4 K/mm3 (4.4-11.0)
[2020-11-26 15:40] LABS: ALB/GLOB Ratio 0.9 RATIO (0.9-2.4); AST(SGOT) 34 U/L (15-37); Alanine Aminotransfer ALT/SGPT 28 U/L (13-56); Albumin, Serum 3.5 g/dL (3.2-5.0); Alkaline Phosphatase 73 U/L (45-117); Anion Gap 7 (5-15); BUN 10 mg/dL (7-18); BUN/Creat Ratio 13.6 RATIO (10-20); Calcium,Total 8.6 mg/dL (8.5-10.1); Chloride 98 mmol/L (98-107); Creatinine, Serum 0.73 mg/dL (0.55-1.02); EST Glomerular Filtration Rate 84 mL/min (>60); Est Glom Filt Rate - Afr Amer 102 mL/min (>60); Globulin 3.8 g/dL (2.2-4.2); Glucose 99 mg/dL (74-106); Potassium 4.1 mmol/L (3.5-5.1); Protein, Total 7.3 g/dL (6.4-8.2); Sodium Level 131 mmol/L (136-145)
== END ==
PROVIDERS: PCP Family Medicine; Referring Provider Internal Medicine Rheumatology; Visit Provider Internal Medicine Rheumatology
DX: M06.4 Inflammatory polyarthropathy (principal); M79.7 Fibromyalgia; M17.0 Bilateral primary osteoarthritis of knee; M18.0 Bilateral primary osteoarthritis of first carpometacarpal joints; K21.9 Gastro-esophageal reflux disease without esophagitis; F32.9 Major depressive disorder, single episode, unspecified; Z79.899 Other long term (current) drug therapy
CPT/HCPCS: 36415; 80053; 85025

== ENCOUNTER → 2021-02-11 09:32 | Outpatient (CLI) | payer MEDICARE, SELFPAY ==
[2021-02-11 12:22] LABS: Absolute Lymphocyte Count 0.72 X10^3/uL (0.83-4.51); Absolute Neutrophil Count 3.1 X10^3/uL (2.0-7.7); Basophil# 0.04 X10^3/uL; Basophil% 0.9 % (0-1); Eosinophils% 4.3 % (0-5); Hematocrit 36.6 % (37-47); Hemoglobin 12.6 g/dL (12.0-15.0); Lymphocyte # 0.72 X10^3/ul (0.83-4.51); Lymphocyte % 15.7 % (19-41); Mean Corp Hgb Conc 34.4 g/dL (32-36); Mean Corpuscular Hgb 37.3 pg (27.0-32.0); Mean Corpuscular Volume 108.3 fL (81-99); Mean Platelet Vol. 9.5 fl (6.2-12.0); Monocyte% 10.9 % (0-10); NRBC Flagged by Analyzer 0 % (0-5); Neutrophil # 3.12 X10^3/uL (2.7-7.7); Neutrophil % 67.8 % (47-70); Platelet Count 369 K/mm3 (150-450); RBC Distribution Width CV 13.3 % (11.6-14.6); RBC Distribution Width SD 53.5 fl (35.1-43.9); Red Blood Count 3.38 M/mm3 (4.2-5.4); White Blood Count 4.6 K/mm3 (4.4-11.0)
[2021-02-11 12:37] LABS: Vitamin D,25 Hydroxy 19.2 ng/mL
[2021-02-11 12:47] LABS: ALB/GLOB Ratio 0.8 RATIO (0.9-2.4); AST(SGOT) 27 U/L (15-37); Alanine Aminotransfer ALT/SGPT 24 U/L (13-56); Albumin, Serum 3.3 g/dL (3.2-5.0); Alkaline Phosphatase 68 U/L (45-117); Anion Gap 7 (5-15); BUN 7 mg/dL (7-18); BUN/Creat Ratio 9.5 RATIO (10-20); Calcium,Total 8.6 mg/dL (8.5-10.1); Chloride 99 mmol/L (98-107); Cholesterol 173 mg/dL (200); Creatinine, Serum 0.73 mg/dL (0.55-1.02); EST Glomerular Filtration Rate 84 mL/min (>60); Est Glom Filt Rate - Afr Amer 102 mL/min (>60); Globulin 4.3 g/dL (2.2-4.2); Glucose 79 mg/dL (74-106); High Density Lipoprotein 101 mg/dL; Potassium 4.4 mmol/L (3.5-5.1); Protein, Total 7.6 g/dL (6.4-8.2); Sodium Level 132 mmol/L (136-145); Triglycerides 38 mg/dL; Very Low Density Lipoprotein 8 mg/dL (5-40)
== END ==
PROVIDERS: PCP Family Medicine; Referring Provider Family Medicine; Visit Provider Family Medicine
DX: I10 Essential (primary) hypertension (principal); M85.80 Other specified disorders of bone density and structure, unspecified site
CPT/HCPCS: 36415; 80053; 80061; 82306; 84443; 85025

== ENCOUNTER → 2021-03-07 11:48 | Outpatient (CLI) | payer MEDICARE, SELFPAY ==
[2021-03-07 15:04] LABS: Absolute Lymphocyte Count 0.98 X10^3/uL (0.83-4.51); Absolute Neutrophil Count 3.1 X10^3/uL (2.0-7.7); Basophil# 0.04 X10^3/uL; Basophil% 0.8 % (0-1); Eosinophil# 0.16 X10^3/uL; Eosinophils% 3.4 % (0-5); Hematocrit 35.3 % (37-47); Hemoglobin 12.1 g/dL (12.0-15.0); Lymphocyte # 0.98 X10^3/ul (0.83-4.51); Lymphocyte % 20.6 % (19-41); Mean Corp Hgb Conc 34.3 g/dL (32-36); Mean Corpuscular Hgb 36.6 pg (27.0-32.0); Mean Corpuscular Volume 106.6 fL (81-99); Mean Platelet Vol. 9.5 fl (6.2-12.0); Monocyte% 10.5 % (0-10); NRBC Flagged by Analyzer 0 % (0-5); Neutrophil # 3.06 X10^3/uL (2.7-7.7); Neutrophil % 64.5 % (47-70); Platelet Count 368 K/mm3 (150-450); RBC Distribution Width CV 12.5 % (11.6-14.6); RBC Distribution Width SD 48.6 fl (35.1-43.9); Red Blood Count 3.31 M/mm3 (4.2-5.4); White Blood Count 4.8 K/mm3 (4.4-11.0)
[2021-03-07 15:18] LABS: ALB/GLOB Ratio 0.8 RATIO (0.9-2.4); AST(SGOT) 18 U/L (15-37); Alanine Aminotransfer ALT/SGPT 23 U/L (13-56); Albumin, Serum 3.3 g/dL (3.2-5.0); Alkaline Phosphatase 75 U/L (45-117); Anion Gap 7 (5-15); BUN 6 mg/dL (7-18); BUN/Creat Ratio 8.7 RATIO (10-20); Calcium,Total 8.7 mg/dL (8.5-10.1); Chloride 97 mmol/L (98-107); Creatinine, Serum 0.69 mg/dL (0.55-1.02); EST Glomerular Filtration Rate 90 mL/min (>60); Est Glom Filt Rate - Afr Amer 109 mL/min (>60); Globulin 4.2 g/dL (2.2-4.2); Glucose 76 mg/dL (74-106); Potassium 4.5 mmol/L (3.5-5.1); Protein, Total 7.5 g/dL (6.4-8.2); Sodium Level 131 mmol/L (136-145)
== END ==
PROVIDERS: PCP Family Medicine; Referring Provider Internal Medicine Rheumatology; Visit Provider Internal Medicine Rheumatology
DX: M06.4 Inflammatory polyarthropathy (principal); M79.7 Fibromyalgia; M17.0 Bilateral primary osteoarthritis of knee; M18.0 Bilateral primary osteoarthritis of first carpometacarpal joints; K21.9 Gastro-esophageal reflux disease without esophagitis; F32.9 Major depressive disorder, single episode, unspecified; Z79.899 Other long term (current) drug therapy
CPT/HCPCS: 36415; 80053; 85025

== ENCOUNTER → 2021-11-18 | Outpatient (CLI) | payer MEDICARE, SELFPAY ==
[2021-11-18 18:19] LABS: Anion Gap 7 (5-15); BUN 14 mg/dL (7-18); BUN/Creat Ratio 16.1 RATIO (10-20); Calcium,Total 8.8 mg/dL (8.5-10.1); Chloride 98 mmol/L (98-107); Creatinine, Serum 0.87 mg/dL (0.55-1.02); EST Glomerular Filtration Rate 69 mL/min (>60); Est Glom Filt Rate - Afr Amer 83 mL/min (>60); Glucose 93 mg/dL (74-106); Potassium 4.2 mmol/L (3.5-5.1); Sodium Level 129 mmol/L (136-145)
== END | disposition home or self-care (01) ==
LOC: MTLAB 15:40
PROVIDERS: PCP Family Medicine; Referring Provider Internal Medicine Nephrology; Visit Provider Internal Medicine Nephrology
DX: E87.1 Hypo-osmolality and hyponatremia (principal)
CPT/HCPCS: 36415; 80048

== ENCOUNTER → 2021-12-22 | Outpatient (CLI) | payer MEDICARE, SELFPAY ==
[2021-12-22 15:31] LABS: Urine Sodium 52 mmol/L (Not Establ.)
[2021-12-22 15:36] LABS: Anion Gap 8 (5-15); BUN 13 mg/dL (7-18); BUN/Creat Ratio 14.7 RATIO (10-20); Calcium,Total 8.9 mg/dL (8.5-10.1); Chloride 100 mmol/L (98-107); Creatinine, Serum 0.88 mg/dL (0.55-1.02); EST Glomerular Filtration Rate 67 mL/min (>60); Est Glom Filt Rate - Afr Amer 82 mL/min (>60); Glucose 78 mg/dL (74-106); Potassium 4.7 mmol/L (3.5-5.1); Sodium Level 133 mmol/L (136-145)
== END | disposition home or self-care (01) ==
LOC: MTLAB 11:35
PROVIDERS: PCP Family Medicine; Referring Provider Internal Medicine Nephrology; Visit Provider Internal Medicine Nephrology
DX: E87.1 Hypo-osmolality and hyponatremia (principal)
CPT/HCPCS: 36415; 80048; 84300

== ENCOUNTER → 2022-02-11 | Outpatient (CLI) | payer MEDICARE, SELFPAY ==
--- NOTE | 2022-02-11 08:58 | STRESSREP_ITS ---
Stress Test Report Date: 02-11-2022 Procedure: Exercise tolerance test/imaging study Indications: Chest pain/jaw pain Consent: Per the patient Procedure: The patient exercised on a Henrry protocol for 6 minutes completing Stage II achieving a peak heart rate of 150 bpm (98% predicted maximal heart rate) with resting blood pressure of 118/72 mmHg and a peak blood pressure 160/64 mmHg and a peak MET capacity of 7 METs. The baseline ECG demonstrated normal sinus rhythm. The peak exercise ECG demonstrated no obvious ECG changes. There was a rare PVC during exercise. The functional capacity was considered good. There was no complaint of chest discomfort during exercise or recovery. The examination was discontinued secondary to dyspnea. Impression: 1. Technically adequate (percent predicted maximal heart rate greater than 85%) exercise tolerance test 2. Peak exercise ECG with no obvious ECG changes 3. There was a rare PVC during exercise 4. Nuclear images pending Myocardial perfusion imaging study: Technique: The patient was injected with 9.5 mCi of technetium 99m Cardiolite and subsequently rest SPECT Cardiolite nuclear imaging was obtained in the horizontal long, vertical long, and short axis views. The patient exercised on a Henrry protocol for 6 minutes completing Stage II achieving a peak heart rate of 150 bpm (98% predicted maximal heart rate) with resting blood pressure of 118/72 mmHg and a peak blood pressure 160/64 mmHg and a peak MET capacity of 7 METs. The patient was injected with 30.1 mCi of technetium 99m Cardiolite and subsequently stress SPECT Cardiolite nuclear imaging was obtained in the horizontal long, vertical long, and short axis views. A gated Cardiolite study at peak stress was obtained. Interpretation: Rest and stress SPECT Cardiolite nuclear imaging status post realignment, normalization, and attenuation correction, demonstrates the appearance of relative uniform tracer uptake and myocardial perfusion appearing within normal limits. There is end systolic thickening and brightening. The gated Cardiolite study demonstrates myocardial thickening and inward wall motion. The reported L VEF is 83%. Impression: 1. Rest and stress SPECT Cardiolite nuclear imaging demonstrate relative uniform tracer uptake and myocardial perfusion appearing within normal limits. 2. The gated Cardiolite study reports an LVEF of 83%. This note was generated with Greenphireation software. It may contain incorrect words, spelling, and punctuation that were not noted in checking the note before signing.
== END | disposition home or self-care (01) ==
LOC: CVS 06:28
PROVIDERS: PCP Family Medicine; Referring Provider Internal Medicine Cardiovascular Disease; Visit Provider Internal Medicine Cardiovascular Disease
DX: R07.9 Chest pain, unspecified (principal); I10 Essential (primary) hypertension
CPT/HCPCS: 78452; 93017; A9500; A4216

== ENCOUNTER → 2022-05-26 | Outpatient (CLI) | payer MEDICARE, SELFPAY ==
[2022-05-26 10:27] LABS: Anion Gap 7 (5-15); BUN 9 mg/dL (7-18); BUN/Creat Ratio 10.3 RATIO (10-20); Chloride 102 mmol/L (98-107); Creatinine, Serum 0.87 mg/dL (0.55-1.02); EST Glomerular Filtration Rate 68 mL/min (>60); Est Glom Filt Rate - Afr Amer 83 mL/min (>60); Glucose 117 mg/dL (74-106); Sodium Level 136 mmol/L (136-145)
== END | disposition home or self-care (01) ==
LOC: MTLAB 09:10
PROVIDERS: PCP Family Medicine; Referring Provider Internal Medicine Nephrology; Visit Provider Internal Medicine Nephrology
DX: E87.1 Hypo-osmolality and hyponatremia (principal)
CPT/HCPCS: 36415; 80048

== ENCOUNTER → 2022-06-01 | Outpatient (CLI) | payer MEDICARE, SELFPAY ==
--- NOTE | 2022-06-01 12:25 | BI_ITS ---
MAMMOGRAPHY - BILATERAL SCREENING REASON FOR EXAM: Female, 66 years old. Routine annual screening examination. PERTINENT HISTORY: Non-contributory. TECHNIQUE: Digital bilateral breast margarita (3D mammographic acquisition) in the CC and MLO projections. 2-D mediolateral oblique (MLO) and craniocaudad (CC) views of both breasts were obtained. CAD: Full Field Digital Mammography with Computer Added Detection was performed. COMPARISON: Comparison is made with prior study dated 04/30/2020 and 11/18/2018. FINDINGS: Breast Composition: The breasts are heterogeneously dense, which may obscure small masses. There are no dominant masses or suspicious calcifications. Stable small benign-appearing bilateral axillary lymph nodes. No other significant abnormalities are identified. There has been no significant change since the prior study. BI/SCRN MAMM (CAD)W/MARGARITA BILAT IMPRESSION: Stable bilateral screening mammogram. Yearly follow-up mammogram recommended. (A) ASSESSMENT CATEGORY: BIRADS Category 2: Benign. A letter regarding these results will be sent to the patient by the facility within 30 days. Approximately 10% of breast cancers are not detected by mammography. A normal mammogram should not delay biopsy of a clinically suspicious abnormality. [id number] Electronically Signed: Bello Martinez MD at 14:17 EST ,
== END | disposition home or self-care (01) ==
LOC: OPBI 12:23
PROVIDERS: PCP Family Medicine; Visit Provider Family Medicine
DX: Z12.31 Encounter for screening mammogram for malignant neoplasm of breast (principal)
CPT/HCPCS: 77063; 77067

== ENCOUNTER → 2022-09-23 | Outpatient (CLI) | payer MEDICARE, SELFPAY ==
[2022-09-23 10:57] LABS: Bacteria 0 SEEN /hpf (None Seen); Mucous, Urine 0 SEEN /hpf (<or=2+); Squamous Epithelial Cells - UA 0 SEEN /hpf (5-10); White Blood Cells 0 SEEN /hpf (0-5)
[2022-09-23 12:32] LABS: Color, Urine Yellow (Yellow); Glucose, Dipstick Normal (Normal); Ketone-Dipstick Negative (Negative); Leukocyte Esterase-Dipstick Negative /ul (Negative); Nitrite-Dipstick Negative (Negative); Occult Blood-Urine 10 /ul (Negative); Protein-Dipstick Negative (Negative); Urine Bilirubin Dipstick Negative (Negative); Urine Clarity Sl. Cloudy (Clear); Urine Urobilinogen Normal (Normal)
[2022-09-23 12:48] LABS: Red Blood Cells-Urine 0-5 SEEN /hpf (0-5)
[2022-09-23 12:48] LABS: Absolute Neutrophil Count 5.3 X10^3/uL (2.0-7.7); Basophil# 0.05 X10^3/uL; Basophil% 0.6 % (0-1); Eosinophils% 3.8 % (0-5); Hematocrit 36.2 % (37-47); Hemoglobin 11.9 g/dL (12.0-15.0); Lymphocyte % 17.9 % (19-41); Mean Corp Hgb Conc 32.9 g/dL (32-36); Mean Corpuscular Hgb 32.6 pg (27.0-32.0); Mean Corpuscular Volume 99.2 fL (81-99); Mean Platelet Vol. 10.8 fl (6.2-12.0); Monocyte# 0.72 X10^3/uL; Monocyte% 9.2 % (0-10); NRBC Flagged by Analyzer 0 % (0-5); Neutrophil # 5.32 X10^3/uL (2.7-7.7); Neutrophil % 68.1 % (47-70); Platelet Count 359 K/mm3 (150-450); RBC Distribution Width CV 13.2 % (11.6-14.6); RBC Distribution Width SD 48.3 fl (35.1-43.9); Red Blood Count 3.65 M/mm3 (4.2-5.4); White Blood Count 7.8 K/mm3 (4.4-11.0)
[2022-09-23 13:29] LABS: Vitamin D,25 Hydroxy 37.4 ng/mL
[2022-09-23 14:04] LABS: ALB/GLOB Ratio 0.8 RATIO (0.9-2.4); AST(SGOT) 19 U/L (15-37); Alanine Aminotransfer ALT/SGPT 22 U/L (13-56); Albumin, Serum 3.6 g/dL (3.2-5.0); Alkaline Phosphatase 83 U/L (45-117); Anion Gap 9 (5-15); BUN 16 mg/dL (7-18); Calcium,Total 9.1 mg/dL (8.5-10.1); Chloride 101 mmol/L (98-107); Cholesterol 175 mg/dL (200); EST Glomerular Filtration Rate 58 mL/min (>60); Est Glom Filt Rate - Afr Amer 71 mL/min (>60); Globulin 4.3 g/dL (2.2-4.2); Glucose 90 mg/dL (74-106); High Density Lipoprotein 63 mg/dL; Potassium 4.6 mmol/L (3.5-5.1); Protein, Total 7.9 g/dL (6.4-8.2); Sodium Level 131 mmol/L (136-145); Thyroid Stim Hormone (TSH) 1.07 uIU/mL (0.358-3.74); Triglycerides 57 mg/dL; Very Low Density Lipoprotein 11 mg/dL (5-40)
[2022-09-24 11:19] LABS: Vitamin B12 414 pg/mL (211-911)
[2022-09-24 11:21] LABS: Ferritin 170 ng/mL (8-252); Iron 60 ug/dL (50-170); Iron Binding Capacity,Total 290 ug/dL (250-450); PERCENT IRON SATURATION 20.7 % (15.0-55.0)
[2022-09-24 11:26] LABS: Hemoglobin A1c 5.1 % (3.8-5.6)
== END | disposition home or self-care (01) ==
LOC: MFPLAB 09:27
PROVIDERS: PCP Family Medicine; Visit Provider Family Medicine
DX: D64.9 Anemia, unspecified (principal); R73.09 Other abnormal glucose; I10 Essential (primary) hypertension; E55.9 Vitamin D deficiency, unspecified
CPT/HCPCS: 36415; 80053; 80061; 81001; 82306; 82607; 82728; 83036; 83540; 83550; 84443; 85025

== ENCOUNTER → 2023-01-21 | Outpatient (CLI) | payer MEDICARE, SELFPAY ==
[2023-01-21 10:45] LABS: Red Blood Cells-Urine 0 SEEN /hpf (0-5); White Blood Cells 0 SEEN /hpf (0-5)
[2023-01-21 12:18] LABS: Absolute Lymphocyte Count 1.53 X10^3/uL (0.83-4.51); Absolute Neutrophil Count 4.2 X10^3/uL (2.0-7.7); Basophil# 0.04 X10^3/uL; Basophil% 0.6 % (0-1); Eosinophils% 4.5 % (0-5); Hematocrit 34.4 % (37-47); Hemoglobin 11.2 g/dL (12.0-15.0); Lymphocyte # 1.53 X10^3/ul (0.83-4.51); Lymphocyte % 22.9 % (19-41); Mean Corp Hgb Conc 32.6 g/dL (32-36); Mean Corpuscular Hgb 32.3 pg (27.0-32.0); Mean Corpuscular Volume 99.1 fL (81-99); Mean Platelet Vol. 10.4 fl (6.2-12.0); Monocyte# 0.58 X10^3/uL; Monocyte% 8.7 % (0-10); NRBC Flagged by Analyzer 0 % (0-5); Neutrophil # 4.19 X10^3/uL (2.7-7.7); Neutrophil % 62.9 % (47-70); Platelet Count 325 K/mm3 (150-450); RBC Distribution Width CV 13.1 % (11.6-14.6); RBC Distribution Width SD 47.1 fl (35.1-43.9); Red Blood Count 3.47 M/mm3 (4.2-5.4); White Blood Count 6.7 K/mm3 (4.4-11.0)
[2023-01-21 12:19] LABS: Color, Urine Yellow (Yellow); Glucose, Dipstick Normal (Normal); Ketone-Dipstick Negative (Negative); Leukocyte Esterase-Dipstick Negative /ul (Negative); Nitrite-Dipstick Negative (Negative); Occult Blood-Urine Negative /ul (Negative); Protein-Dipstick Negative (Negative); Specific Gravity, Urine 1.015 (1.002-1.030); Urine Bilirubin Dipstick Negative (Negative); Urine Clarity Sl. Cloudy (Clear); Urine Urobilinogen Normal (Normal)
[2023-01-21 12:28] LABS: Bacteria RARE /hpf (None Seen); Mucous, Urine RARE /hpf (<or=2+); Squamous Epithelial Cells - UA 0-5 SEEN /hpf (5-10)
[2023-01-21 12:53] LABS: ALB/GLOB Ratio 0.8 RATIO (0.9-2.4); AST(SGOT) 14 U/L (15-37); Alanine Aminotransfer ALT/SGPT 19 U/L (13-56); Albumin, Serum 3.2 g/dL (3.2-5.0); Alkaline Phosphatase 68 U/L (45-117); Anion Gap 7 (5-15); BUN 16 mg/dL (7-18); Calcium,Total 8.6 mg/dL (8.5-10.1); Chloride 104 mmol/L (98-107); Cholesterol 147 mg/dL (200); Creatinine, Serum 0.84 mg/dL (0.55-1.02); EST Glomerular Filtration Rate 71 mL/min (>60); Est Glom Filt Rate - Afr Amer 86 mL/min (>60); Glucose 102 mg/dL (74-106); High Density Lipoprotein 60 mg/dL; Protein, Total 7.2 g/dL (6.4-8.2); Sodium Level 136 mmol/L (136-145); Triglycerides 70 mg/dL; Very Low Density Lipoprotein 14 mg/dL (5-40)
== END | disposition home or self-care (01) ==
LOC: MFPLAB 10:41
PROVIDERS: PCP Family Medicine; Visit Provider Family Medicine
DX: I10 Essential (primary) hypertension (principal); E55.9 Vitamin D deficiency, unspecified; R73.09 Other abnormal glucose
CPT/HCPCS: 36415; 80053; 80061; 81001; 82306; 83036; 85025

== ENCOUNTER → 2023-05-24 | Outpatient (CLI) | payer MEDICARE, SELFPAY ==
[2023-05-24 11:21] LABS: Bacteria 0 SEEN /hpf (None Seen); Mucous, Urine 0 SEEN /hpf (<or=2+); Red Blood Cells-Urine 0 SEEN /hpf (0-5); Squamous Epithelial Cells - UA 0 SEEN /hpf (5-10); White Blood Cells 0 SEEN /hpf (0-5)
[2023-05-24 15:34] LABS: Color, Urine Yellow (Yellow); Glucose, Dipstick Normal (Normal); Ketone-Dipstick Negative (Negative); Leukocyte Esterase-Dipstick Negative /ul (Negative); Nitrite-Dipstick Negative (Negative); Occult Blood-Urine Negative /ul (Negative); Protein-Dipstick Negative (Negative); Urine Bilirubin Dipstick Negative (Negative); Urine Clarity Clear (Clear); Urine Urobilinogen Normal (Normal); Urine pH 6.5 (5.0 - 8.0)
[2023-05-24 16:06] LABS: Absolute Lymphocyte Count 1.69 X10^3/uL (0.83-4.51); Absolute Neutrophil Count 8.1 X10^3/uL (2.0-7.7); Basophil# 0.07 X10^3/uL; Basophil% 0.6 % (0-1); Eosinophil# 0.48 X10^3/uL; Eosinophils% 4.2 % (0-5); Hematocrit 35.8 % (37-47); Hemoglobin 11.6 g/dL (12.0-15.0); Lymphocyte # 1.69 X10^3/ul (0.83-4.51); Lymphocyte % 14.9 % (19-41); Mean Corp Hgb Conc 32.4 g/dL (32-36); Mean Corpuscular Hgb 31.4 pg (27.0-32.0); Mean Platelet Vol. 10.3 fl (6.2-12.0); Monocyte# 0.93 X10^3/uL; Monocyte% 8.2 % (0-10); NRBC Flagged by Analyzer 0 % (0-5); Neutrophil # 8.07 X10^3/uL (2.7-7.7); Neutrophil % 71.3 % (47-70); Platelet Count 376 K/mm3 (150-450); RBC Distribution Width CV 13.1 % (11.6-14.6); RBC Distribution Width SD 46.4 fl (35.1-43.9); Red Blood Count 3.69 M/mm3 (4.2-5.4); White Blood Count 11.3 K/mm3 (4.4-11.0)
[2023-05-24 16:19] LABS: Vitamin B12 315 pg/mL (211-911); Vitamin D,25 Hydroxy 53.5 ng/mL
[2023-05-24 16:59] LABS: ALB/GLOB Ratio 0.8 RATIO (0.9-2.4); AST(SGOT) 17 U/L (15-37); Alanine Aminotransfer ALT/SGPT 25 U/L (13-56); Albumin, Serum 3.3 g/dL (3.2-5.0); Alkaline Phosphatase 78 U/L (45-117); Anion Gap 8 (5-15); BUN 16 mg/dL (7-18); BUN/Creat Ratio 18.7 RATIO (10-20); Calcium,Total 8.6 mg/dL (8.5-10.1); Chloride 98 mmol/L (98-107); Creatinine, Serum 0.86 mg/dL (0.55-1.02); EST Glomerular Filtration Rate 70 mL/min (>60); Est Glom Filt Rate - Afr Amer 85 mL/min (>60); Ferritin 228 ng/mL (8-252); Globulin 4.4 g/dL (2.2-4.2); Glucose 91 mg/dL (74-106); Iron 59 ug/dL (50-170); Iron Binding Capacity,Total 246 ug/dL (250-450); Potassium 4.3 mmol/L (3.5-5.1); Protein, Total 7.7 g/dL (6.4-8.2); Sodium Level 130 mmol/L (136-145)
== END | disposition home or self-care (01) ==
PROVIDERS: PCP Family Medicine; Referring Provider Family Medicine; Visit Provider Family Medicine
DX: I10 Essential (primary) hypertension (principal); D64.9 Anemia, unspecified; E55.9 Vitamin D deficiency, unspecified
CPT/HCPCS: 36415; 80053; 81001; 82306; 82607; 82728; 82746; 83540; 83550; 85025

== ENCOUNTER → 2023-06-04 | Outpatient (CLI) | payer MEDICARE, SELFPAY ==
[2023-06-04 12:49] LABS: Anion Gap 4 (5-15); BUN 17 mg/dL (7-18); BUN/Creat Ratio 18.3 RATIO (10-20); Calcium,Total 9.2 mg/dL (8.5-10.1); Chloride 102 mmol/L (98-107); Creatinine, Serum 0.93 mg/dL (0.55-1.02); EST Glomerular Filtration Rate 63 mL/min (>60); Est Glom Filt Rate - Afr Amer 77 mL/min (>60); Glucose 90 mg/dL (74-106); Potassium 4.5 mmol/L (3.5-5.1); Sodium Level 131 mmol/L (136-145)
== END | disposition home or self-care (01) ==
LOC: MFPLAB 11:07
PROVIDERS: PCP Family Medicine; Visit Provider Family Medicine
DX: I10 Essential (primary) hypertension (principal)
CPT/HCPCS: 36415; 80048

== ENCOUNTER 2023-06-30 06:49 | Day surgery (SDC) | payer MEDICARE, SELFPAY ==
[2023-06-30 07:06] VITALS: BP 111/71; PULSE 75; RESP 16; TEMP 36.6; O2SAT 99; BMI 36.3
[2023-06-30] MEDS: Lactated Ringers 1,000 ML 15 ML IV (07:13)
--- NOTE | 2023-06-30 07:14 | H&P.OPEN ---
[facility] - General General Date of Service: 06/30/23 [facility] Narrative MARIANNE JOYCE, is a 67 F who presents for screening colonoscopy due to history of colon polyps. Patient last colonoscopy was in May 2020. Patient's mom and maternal grandmother both had colon cancer?mom was 54 when she was diagnosed. Patient has bowel movements daily. Patient states she has been having diarrhea off and on but not consistent. Patient denies any chronic abdominal pain/nausea/vomiting/reflux. [facility] Medical History (Updated 06/30/23 @ 07:[address] Rayna Sandoval MD) Cardiology follow-up encounter Chest pain Depression Diverticulitis Easy bruising Essential hypertension Family history of colon cancer in mother GERD (gastroesophageal reflux disease) History of skin cancer History of stress test Hx of colonic polyp Knee pain Non-smoker Nonrheumatic mitral (valve) insufficiency Nonrheumatic tricuspid (valve) insufficiency Rheumatoid arthritis SOB (shortness of breath) Home Medications aspirin 81 mg tablet,delayed release (Adult Aspirin Regimen) 81 mg PO DAILY #1 TAB 12/22/18 [Rx Last Taken 02/15/19] ascorbic acid (vitamin C) 1,000 mg tablet,extended release 500 mg PO Q12H 01/27/21 [History Last Taken Unknown] metoprolol tartrate 50 mg tablet 50 mg PO BID dose increased today #180 tabs 03/18/23 [Rx Last Taken 06/30/23] cholecalciferol (vitamin D3) 50 mcg (2,000 unit) capsule 50 mcg PO BID 04/14/23 [History Last Taken Unknown] losartan 50 mg tablet 50 mg PO DAILY 04/14/23 [History Last Taken 06/30/23] multivitamin 1 tab PO DAILY 04/14/23 [History Last Taken Unknown] sertraline 50 mg tablet (Zoloft) 50 mg PO DAILY 04/14/23 [History Last Taken Unknown] benzonatate 200 mg capsule 200 mg PO TID PRN cough #14 caps 05/17/23 [Rx Last Taken Unknown] oxybutynin chloride 5 mg tablet 5 mg PO DAILY 05/17/23 [History Last Taken Unknown] famotidine 40 mg tablet 40 mg PO QPM 06/28/23 [History Last Taken Unknown] Allergy/AdvReac Type Severity Reaction Status Date / Time adhesive tape AdvReac Rash Verified 06/30/23 07:03 Family History (Updated 05/24/23 @ 10:34 by Elizabeth Bridges) Mother Colon cancer, Onset Age: 52 with colon ca at 55yrs. Father Lung cancer Sister History of heart valve replacement Cardiac pacemaker in situ Cancer skin Thyroid disorder Grandmother Rectal cancer Surgical History History of basal cell carcinoma excision History of colonoscopy with polypectomy History of hysterectomy History of left heart catheterization (02/15/19) History of wisdom tooth extraction Social History (Updated 05/24/23 @ 10:34 by Elizabeth Bridges) current occupational status: retired Smoking Status: Never smoker alcohol intake: current alcohol intake frequency: a few times a month substance use type: does not use Past Medical/Surgical History Planned Operation Planned Operative Procedure/s: COLONOSCOPY S.O.S: No Previous Hospitalizations/Surgeries HX Hospitalizations: No HX of Surgeries: PARTIAL HYSTERECTOMY 1998 SKIN CANCER 2010 PLANTAR FASCIOTOMY 2013 Any Problems With Anesthesia: No You/Your Family Experience Fever (Hyperthermia) With Anes: No Cholinesterase deficiency: No Cardiovascular Hx Chest Pain within Last 2 months: No Hx of Irregular Heartbeat and/or Afib: No Hx Heart Attack: No Hx Congestive Heart Failure: No Hx Rheumatic Fever: No Hx Hypertension: Yes (ON MEDS) Hx Internal Defibrillator: No Hx Pacemaker: No Hx Cardiac Catheterization: Yes ([facility] 02/2019) What facility was last heart cath performed: - Date of last Heart Cath: - Hx Cardiac Surgery/Stents/Etc.: No Hx Stress Test: Yes (2015) Hx Pain in Legs when Walking/Leg Cramps: No Respiratory Chronic Cough: No HX of Shortness of Breath: No Hoarseness: No Hx Chronic Obstructive Pulmonary Disease (COPD): No Hx Asthma: No Hx Emphysema: No Hx Sleep Apnea: No CPAP: No BIPAP: No Hx Respiratory Tract Infection/Cold (presently): Yes (URI, [place]SE. STARTED FIRST WEEK OF JUNE.) Do You Snore Loudly (louder than talking or can be heard): No Do You Often Feel Tired/ Fatigued/ Sleepy Dring Daytime?: No Has Anyone Observed You Stop Breathing During Sleep?: No Result (for STOP score): Negative Hx Smoking: No Smoking Status: Never smoker Gastrointestinal Controlled With Meds: Yes (ON PROTONIX) Hx Gastrointestinal Disorders: No Hx Gastrointestinal Bleed: No Hx Ulcer: No Hx Hiatal Hernia: No Difficulty Chewing/Swallowing: No Special diet followed at home: No Hx Unplanned Weight Loss of 20#: No HX Unplanned Weight Gain of 20#: No Neurological Hx Seizures: No HX Syncope/Blackout Spells/Unconsciousness: No Hx Transient Ischemic Attacks (TIA): No Hx Multiple Sclerosis: No Hx Parkinson's Disease: No Hx Head/Neck Injury: Yes (Multiple concussions) Hx Headaches: No Hx Back Injury/Pain: No Recent Onset of Speech Difficulty: No Restless Legs: No Does patient have nerve stimulator: No Blood Disorder Hx Leukemia: No Bleeding Tendencies: No Hx Deep Vein Thrombosis: No Hx High Cholesterol: No Blood Transmitted Disease: No Hx Hepatitis: No Hx Cirrhosis: No Hx Anemia: No Hx Blood Disorders: No Reproduction Is Patient Lactating: No Hx Hysterectomy: Yes Are You Post Menopause: Yes Genitourinary Hx Renal Disease: No Musculoskeletal Hx Arthritis: Yes (SEES DR PURI) Hx Rheumatoid Arthritis: No Hx Gout: No Recent Onset of an Orthopedic Problem: No Endocrine Hx Diabetes: No Thyroid Disease: No Hx Steroid Therapy: No Psycho/Social Hx Substance Use: No Hx Alcohol Use: Yes (Occasional) Hx Anxiety: No Hx Depression: No Mental Illness: No Hx Dementia: No Miscellaneous Hx Cancer: Yes (SKIN CANCER) Recent Exposure to Contagious Disease: No Hx of C-Diff: No Any Loose Teeth: No Allergies adhesive tape Adverse Reaction (Verified 06/30/23 07:03) Rash Irritation From the PAT History Number of Risk Factors: 3 Vital Signs Vital Signs Vital Signs: 06/30/23 07:06 06/30/23 07:06 Temperature 97.8 F Temperature Source Temporal Pulse Rate 75 Respiratory Rate 16 Respiratory Pattern Normal Blood Pressure 111/71 Blood Pressure Mean 84 Blood Pressure Source Monitor Blood Pressure Position Semi-Fowlers Blood Pressure Location Right Arm Pulse Ox 99 Oxygen Delivery Method Room Air Weight Weight: 205 lb 0.478 oz Body Mass Index (BMI) 36.3 Physical Exam Const alert, oriented x3 and no apparent distress HEENT normocephalic and head/scalp atraumatic Resp normal respiratory effort Cardio regular rate GI soft to palpation and non-tender; Negative for non-distended Palpation: Negative for guarding Extremity no clubbing, cyanosis or edema Skin no rashes or lesions noted Neuro CN's II-XII intact bilaterally Psych mental status grossly normal Surgery Risks - Colonoscopy I discussed with the patient the risks of the procedure: Yes Risks Include but are not Limited To: Risks include but are not limited to: Bleeding, perforation requiring further surgery, inability to complete colonoscopy requiring barium enema.
--- NOTE | 2023-06-30 08:38 | OP.COLON_ITS ---
Patient Name: Maryam Do Procedure Date: 06/30/2023 8:10 AM Date of : 1955 Age: 67 Procedure: Colonoscopy Indications: High risk colon cancer surveillance: Personal history of colonic polyps, Family history of colon cancer in a first-degree relative before age 60 years Providers: Rayna Sandoval MD Referring MD: Cristóbal Nielsen Medicines: Monitored Anesthesia Care Patient Profile: This is a 67 year old female. Last Colonoscopy: 3 years ago. Complications: No immediate complications. Procedure: Pre-Anesthesia Assessment: - Prior to the procedure, a History and Physical was performed, and patient medications and allergies were reviewed. The patient's tolerance of previous anesthesia was also reviewed. The risks and benefits of the procedure and the sedation options and risks were discussed with the patient. All questions were answered, and informed consent was obtained. Prior Anticoagulants: The patient has taken no anticoagulant or antiplatelet agents except for aspirin. ASA Grade Assessment: Per anesthesia. After reviewing the risks and benefits, the patient was deemed in satisfactory condition to undergo the procedure. After I obtained informed consent, the scope was passed under direct vision. Throughout the procedure, the patient's blood pressure, pulse, and oxygen saturations were monitored continuously. The Colonoscope was introduced through the anus and advanced to the cecum, identified by appendiceal orifice and ileocecal valve. The colonoscopy was performed without difficulty. The patient tolerated the procedure well. The quality of the bowel preparation was good. Scope In: 8:21:48 AM Scope Withdrawal Time 0 hours 6 minutes 5 seconds Scope Out: 8:33:48 AM Total Procedure Duration Time 0 hours 12 minutes 0 seconds Findings: Hemorrhoids were found on perianal exam. Non-bleeding external and internal hemorrhoids were found. The hemorrhoids were small and Grade I (internal hemorrhoids that do not prolapse). The entire examined colon appeared normal. Impression: - Hemorrhoids found on perianal exam. - Non-bleeding external and internal hemorrhoids. - The entire examined colon is normal. - No specimens collected. Recommendation: - Discharge patient to home. - Resume previous diet. - Continue present medications. - Repeat colonoscopy in 5 years for screening purposes. Procedure Code(s): --- Professional --- G0105, PT, Colorectal cancer screening; colonoscopy on individual at high risk Diagnosis Code(s): --- Professional --- Z86.010, Personal history of colonic polyps K64.0, First degree hemorrhoids Z80.0, Family history of malignant neoplasm of digestive organs CPT copyright 2021 [employer]. All rights reserved. The codes documented in this report are preliminary and upon snap attacher review may be revised to meet current compliance requirements. MD Rayna Bowman MD 06/30/2023 8:38:21 AM This report has been signed electronically. Number of Addenda: 0 Note Initiated On: 06/30/2023 8:10 AM
--- NOTE | 2023-06-30 08:39 | OP.CCLET_ITS ---
06/30/2023 Cristóbal Nielsen [address] [place] [address] Re : Colonoscopy procedure for Maryam Do Dear Dr. Nielsen This procedure was performed on Friday, June 30, 2023. My impressions and recommendations are as follows: Impressions : - Hemorrhoids found on perianal exam. - Non-bleeding external and internal hemorrhoids. - The entire examined colon is normal. - No specimens collected. Recommendations : - Discharge patient to home. - Resume previous diet. - Continue present medications. - Repeat colonoscopy in 5 years for screening purposes. My findings are described in the full procedure note, which is enclosed. If I can be of further assistance, please feel free to contact me at Doctor phone number(s): , Work: . Sincerely, MD Rayna Bowman MD 06/30/2023 8:38:21 AM This report has been signed electronically.
[2023-06-30 08:40] VITALS: BP 111/53; BP 96/80; PULSE 70; RESP 16; TEMP 37.2; O2SAT 100
[2023-06-30 08:45] VITALS: BP 111/53; BP 89/53; PULSE 63; RESP 16; O2SAT 99
[2023-06-30 08:50] VITALS: BP 100/61; BP 111/53; PULSE 63; RESP 16; O2SAT 99
[2023-06-30 08:53] VITALS: BP 111/53; BP 95/62; PULSE 60; RESP 16; TEMP 36.7; O2SAT 100
[2023-06-30 09:07] VITALS: BP 111/53
== END 2023-06-30 09:17 | disposition home or self-care (01) ==
LOC: EN 06:49 → AC 06:50
PROVIDERS: PCP Family Medicine; Referring Provider Family Medicine; Visit Provider Surgery
PROC: 0DJD8ZZ Inspection of Lower Intestinal Tract, Via Natural or Artificial Opening Endoscopic (ICD-10-PCS; CPT 45378; principal; 2023-06-30 08:15)
DX: Z12.11 Encounter for screening for malignant neoplasm of colon (principal); K64.0 First degree hemorrhoids; K21.9 Gastro-esophageal reflux disease without esophagitis; I10 Essential (primary) hypertension; Z79.82 Long term (current) use of aspirin; Z79.899 Other long term (current) drug therapy; Z86.010 Personal history of colon polyps; Z80.0 Family history of malignant neoplasm of digestive organs
CPT/HCPCS: G0105; J7120

== ENCOUNTER 2023-10-12 14:42 | Outpatient (CLI) | payer MEDICARE, SELFPAY ==
--- NOTE | 2023-10-12 14:42 | BI_ITS ---
MAMMOGRAPHY - BILATERAL SCREENING REASON FOR EXAM: Female, 67 years old. Routine annual screening examination. PERTINENT HISTORY: Non-contributory. TECHNIQUE: Digital bilateral breast margarita (3D mammographic acquisition) in the CC and MLO projections. 2-D mediolateral oblique (MLO) and craniocaudad (CC) views of both breasts were obtained. CAD: Full Field Digital Mammography with Computer Added Detection was performed. COMPARISON: Comparison is made with prior study dated June 01, 2022 and April 30, 2020. FINDINGS: Breast Composition: The breasts are heterogeneously dense, which may obscure small masses. There are no dominant masses or suspicious calcifications. Stable small benign-appearing bilateral axillary lymph nodes. Stable calcified nodule in the anterior upper lateral aspect of the right breast suggestive of a calcifying fibroadenoma. No other significant abnormalities are identified. There has been no significant change since the prior study. BI/SCRN MAMM (CAD)W/MARGARITA BILAT IMPRESSION: Stable bilateral screening mammogram. Yearly follow-up mammogram recommended. (A) ASSESSMENT CATEGORY: BIRADS Category 2: Benign. A letter regarding these results will be sent to the patient by the facility within 30 days. Approximately 10% of breast cancers are not detected by mammography. A normal mammogram should not delay biopsy of a clinically suspicious abnormality. [id number] Electronically Signed: Bello Martinez MD at 8:12 EDT ,
--- NOTE | 2023-10-12 14:49 | BD_ITS ---
STUDY: DUAL ENERGY X-RAY ABSORPTIOMETRY / DXA REASON FOR EXAM: Female, 67 years old. M85.89 TECHNIQUE: Bone Mineral Density (BMD) measurements of lumbar spine and bilateral hips were obtained. COMPARISON: Comparison is made with prior study dated April 30, 2020. FINDINGS: Lumbar Spine (L1-L4): g/cm2 (0.816) / T-score (-1.8) / Z-score (0.2) Findings are suggestive of osteopenia with a moderate fracture risk. Left Femur Total: g/cm2 (0.854) / T-score (-0.7) / Z-score (0.8) Left Femoral Neck: g/cm2 (0.688) / T-score (-1.4) / Z-score (0.3) Right Femur Total: g/cm2 (0.880) / T-score (-0.5) / Z-score (1.0) Right Femoral Neck: g/cm2 (0.752) / T-score (-0.9) / Z-score (0.9) The T-Scores on the most recent prior examination were: Lumbar Spine (L1-L4): There has been worsening of bone density since the previous examination. Left Femur Total: which represents an improvement of 4.2%. Right Femur Total: which represents an improvement of 3.4%. BD/Dexa Bone Density Study IMPRESSION: The patient is considered osteopenic as outlined below according to World [employer]nie Organization (WHO) criteria with a moderate fracture risk. There has been improvement of bone density since the previous examination. Reference Information: The T-score is the number of standard deviations above or below the standard which is normal for young adults at their peak bone mineral density. The World Health Organization (WHO) interprets the T-scores as follows: Above -1 Normal bone density Between -1 and -2.5 Osteopenia Equal to / or below -2.5 Osteoporosis As a practical clinical guideline, osteopenia may be graded as follows: Mild -1 through -1.5 Moderate -1.6 through -2.0 Severe -2.1 through -2.4 The Z-score is the number of standard deviations above or below age-matched controls. A Z-score of less than -1.5 would be considered abnormal. References: 1. NIH Osteoporosis and Related Bone Diseases www osteo.org 2. International Society for Clinical Densitometry www iscd.org 3. National Osteoporosis Foundation www nof.org Electronically Signed: Bello Martinez MD at 10:19 EDT ,
== END 2023-10-12 23:59 | disposition home or self-care (01) ==
LOC: OPBD 14:42
PROVIDERS: PCP Family Medicine; Referring Provider Family Medicine; Visit Provider Family Medicine
DX: Z12.31 Encounter for screening mammogram for malignant neoplasm of breast (principal); M85.80 Other specified disorders of bone density and structure, unspecified site; Z13.29 Encounter for screening for other suspected endocrine disorder; M85.89 Other specified disorders of bone density and structure, multiple sites
CPT/HCPCS: 77063; 77067; 77080

== ENCOUNTER → 2024-01-04 | Outpatient (CLI) | payer MEDICARE, SELFPAY ==
[2024-01-04 08:34] LABS: Mucous, Urine 0 SEEN /hpf (<or=2+)
[2024-01-04 10:04] LABS: Color, Urine Yellow (Yellow); Glucose, Dipstick Normal (Normal); Ketone-Dipstick 5 mg/dl (Negative); Leukocyte Esterase-Dipstick 25 /ul (Negative); Nitrite-Dipstick Negative (Negative); Occult Blood-Urine 10 /ul (Negative); Protein-Dipstick 15 mg/dl (Negative); Specific Gravity, Urine 1.015 (1.002-1.030); Urine Bilirubin Dipstick Negative (Negative); Urine Clarity Sl. Cloudy (Clear); Urine Urobilinogen 1 mg/dl (Normal)
[2024-01-04 10:07] LABS: Absolute Lymphocyte Count 1.05 X10^3/uL (0.83-4.51); Absolute Neutrophil Count 4.9 X10^3/uL (2.0-7.7); Basophil# 0.05 X10^3/uL; Basophil% 0.7 % (0-1); Eosinophil# 0.24 X10^3/uL; Eosinophils% 3.5 % (0-5); Lymphocyte # 1.05 X10^3/ul (0.83-4.51); Lymphocyte % 15.4 % (19-41); Mean Corp Hgb Conc 32.4 g/dL (32-36); Mean Corpuscular Hgb 31.3 pg (27.0-32.0); Mean Corpuscular Volume 96.6 fL (81-99); Mean Platelet Vol. 10.5 fl (6.2-12.0); Monocyte# 0.58 X10^3/uL; Monocyte% 8.5 % (0-10); NRBC Flagged by Analyzer 0 % (0-5); Neutrophil # 4.89 X10^3/uL (2.7-7.7); Neutrophil % 71.5 % (47-70); Platelet Count 305 K/mm3 (150-450); RBC Distribution Width CV 13.7 % (11.6-14.6); RBC Distribution Width SD 48.6 fl (35.1-43.9); Red Blood Count 3.52 M/mm3 (4.2-5.4); White Blood Count 6.8 K/mm3 (4.4-11.0)
[2024-01-04 10:13] LABS: Bacteria 1+ /hpf (None Seen); Squamous Epithelial Cells - UA 0-5 SEEN /hpf (5-10)
[2024-01-04 10:14] LABS: Red Blood Cells-Urine 0-5 SEEN /hpf (0-5); White Blood Cells 0-5 SEEN /hpf (0-5)
[2024-01-04 10:20] LABS: Vitamin B12 308 pg/mL (211-911); Vitamin D,25 Hydroxy 60.7 ng/mL
[2024-01-04 10:59] LABS: ALB/GLOB Ratio 0.8 RATIO (0.9-2.4); AST(SGOT) 12 U/L (15-37); Alanine Aminotransfer ALT/SGPT 9 U/L (13-56); Albumin, Serum 3.3 g/dL (3.2-5.0); Alkaline Phosphatase 67 U/L (45-117); Anion Gap 6 (5-15); BUN 10 mg/dL (7-18); BUN/Creat Ratio 10.6 RATIO (10-20); Chloride 104 mmol/L (98-107); Cholesterol 152 mg/dL (200); Creatinine, Serum 0.94 mg/dL (0.55-1.02); EST Glomerular Filtration Rate 63 mL/min (>60); Est Glom Filt Rate - Afr Amer 76 mL/min (>60); Ferritin 147 ng/mL (8-252); Globulin 3.9 g/dL (2.2-4.2); Glucose 92 mg/dL (74-106); Hemoglobin A1c 5.2 % (3.8-5.6); High Density Lipoprotein 57 mg/dL; Iron 76 ug/dL (50-170); Iron Binding Capacity,Total 264 ug/dL (250-450); Magnesium 2.5 mg/dL (1.6-2.6); Potassium 4.4 mmol/L (3.5-5.1); Protein, Total 7.2 g/dL (6.4-8.2); Sodium Level 135 mmol/L (136-145); Triglycerides 46 mg/dL; Very Low Density Lipoprotein 9 mg/dL (5-40)
== END | disposition home or self-care (01) ==
LOC: MFPLAB 08:32
PROVIDERS: PCP Family Medicine; Visit Provider Family Medicine
DX: I10 Essential (primary) hypertension (principal); D64.9 Anemia, unspecified; M85.80 Other specified disorders of bone density and structure, unspecified site; R73.09 Other abnormal glucose
CPT/HCPCS: 36415; 80053; 80061; 81001; 82306; 82607; 82728; 82746; 83036; 83540; 83550; 83735; 84443; 85025

== ENCOUNTER → 2024-02-03 | Outpatient (CLI) | payer MEDICARE, SELFPAY ==
--- NOTE | 2024-02-03 18:46 | CT_ITS ---
HISTORY: hemoptysis. TECHNIQUE: Helically acquired images were obtained of the chest without contrast. A radiation dose optimization technique was used for this scan. 850 images. COMPARISON: XR 05/27/2023. FINDINGS: LARGE AIRWAYS: Patent. LUNGS: Very mild linear atelectasis and scarring in the periphery of the lungs. PLEURA: No pneumothorax or significant pleural effusion. HEART/PERICARDIUM: Heart within normal limits in size with coronary artery calcification. No pericardial effusion. VESSELS: 4.2 cm ascending aorta. Mild atherosclerosis. MEDIASTINUM/ALEXIA: No pathologically enlarged adenopathy. UPPER ABDOMEN: Unremarkable. BONES: Degenerative change. CT/Chest without Contrast IMPRESSION: No evidence for acute lung or pleural disease. Mildly dilated ascending thoracic aorta. Electronically Signed: Vernell Saldana MD at 15:48 EDT ,
== END | disposition home or self-care (01) ==
PROVIDERS: PCP Family Medicine; Referring Provider Family Medicine; Visit Provider Family Medicine
DX: R04.2 Hemoptysis (principal)
CPT/HCPCS: 71250

== ENCOUNTER → 2024-05-16 | Outpatient (CLI) | payer MEDICARE, SELFPAY ==
[2024-05-16 12:39] LABS: Absolute Neutrophil Count 5.1 X10^3/uL (2.0-7.7); Basophil# 0.03 X10^3/uL; Basophil% 0.4 % (0-1); Eosinophil# 0.17 X10^3/uL; Eosinophils% 2.5 % (0-5); Hematocrit 37.8 % (37-47); Hemoglobin 12.2 g/dL (12.0-15.0); Lymphocyte % 13.3 % (19-41); Mean Corp Hgb Conc 32.3 g/dL (32-36); Mean Corpuscular Hgb 31.3 pg (27.0-32.0); Mean Corpuscular Volume 96.9 fL (81-99); Mean Platelet Vol. 10.6 fl (6.2-12.0); Monocyte# 0.56 X10^3/uL; Monocyte% 8.3 % (0-10); NRBC Flagged by Analyzer 0 % (0-5); Neutrophil # 5.09 X10^3/uL (2.7-7.7); Neutrophil % 75.1 % (47-70); Platelet Count 297 K/mm3 (150-450); RBC Distribution Width CV 13.7 % (11.6-14.6); RBC Distribution Width SD 48.6 fl (35.1-43.9); White Blood Count 6.8 K/mm3 (4.4-11.0)
[2024-05-16 13:41] LABS: Vitamin D,25 Hydroxy 46.1 ng/mL
[2024-05-16 13:51] LABS: ALB/GLOB Ratio 0.8 RATIO (0.9-2.4); AST(SGOT) 14 U/L (15-37); Alanine Aminotransfer ALT/SGPT 15 U/L (13-56); Albumin, Serum 3.3 g/dL (3.2-5.0); Alkaline Phosphatase 70 U/L (45-117); Anion Gap 5 (5-15); BUN 19 mg/dL (7-18); BUN/Creat Ratio 18.3 RATIO (10-20); Calcium,Total 9.1 mg/dL (8.5-10.1); Chloride 103 mmol/L (98-107); Creatinine, Serum 1.04 mg/dL (0.55-1.02); EST Glomerular Filtration Rate 56 mL/min (>60); Est Glom Filt Rate - Afr Amer 67 mL/min (>60); Globulin 4.2 g/dL (2.2-4.2); Glucose 77 mg/dL (74-106); Potassium 4.2 mmol/L (3.5-5.1); Protein, Total 7.5 g/dL (6.4-8.2); Sodium Level 135 mmol/L (136-145)
== END | disposition home or self-care (01) ==
LOC: MFPLAB 09:21
PROVIDERS: PCP Family Medicine; Referring Provider Family Medicine; Visit Provider Family Medicine
DX: I10 Essential (primary) hypertension (principal); E55.9 Vitamin D deficiency, unspecified
CPT/HCPCS: 36415; 80053; 82306; 85025

== ENCOUNTER → 2024-06-13 | Outpatient (CLI) | payer MEDICARE, SELFPAY ==
--- NOTE | 2024-06-13 18:55 | CT_ITS ---
EXAM: CT brain without IV contrast CLINICAL HISTORY: Pain, sinusitis, headaches COMPARISON: None TECHNIQUE: Multiple contiguous axial images through the brain were obtained without the administration of intravenous contrast. Two-dimensional coronal and sagittal reformatted images were reconstructed. Low-dose imaging technique was utilized. FINDINGS: No evidence of acute intracranial hemorrhage, midline shift or mass effect. No definite CT evidence of acute territorial cortical infarction. No hydrocephalus. Mild cerebral atrophy and chronic small-vessel ischemic changes. Calvarium is intact. Paranasal sinuses and mastoid air cells are clear. CT/Brain/Head without Contrast IMPRESSION: 1. No acute intracranial abnormality. 2. Mild atrophy and chronic small-vessel ischemic disease. Reading Location: [facility]
== END | disposition home or self-care (01) ==
LOC: CT 18:54
PROVIDERS: PCP Family Medicine; Referring Provider Family Medicine; Visit Provider Family Medicine
DX: J32.9 Chronic sinusitis, unspecified (principal)
CPT/HCPCS: 70450

== ENCOUNTER → 2024-07-14 | Outpatient (CLI) | payer MEDICARE, SELFPAY ==
--- NOTE | 2024-07-14 18:45 | CT_ITS ---
PROCEDURE: SINUS/FACIAL BONE REASON FOR EXAM: SINUSITIS TECHNIQUE: CT of the paranasal sinuses without contrast. Coronal and Sagittal reconstruction series were provided. One or more dose reduction techniques were used (e.g., Automated exposure control, adjustment of the mA and/or kV according to patient size, use of iterative reconstruction technique). COMPARISON: None. FINDINGS: The paranasal sinuses are clear. No air-fluid levels. No wall thickening or sclerosis. The ostiomeatal complexes, frontoethmoidal and sphenoethmoidal recesses appear clear. The turbinates appear within limits. Bilateral robert bullosa, incidental. Slight leftward bowing of the nasal septum with an anterior nasal septal spur for example coronal 36. The infratemporal fossa fat appears preserved. Pterygopalatine foramen appear within limits. 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 TMJs appear normally located. Orbits appear within limits. Previous bilateral cataract surgery. The mastoids appear clear. Middle and inner ears appear within limits. Internal auditory canals appear within limits. Queen artifact from dental amalgam. No periapical lucency identified. C4-5 spondylosis/discogenic change. CT/Sinus/Facial Bone IMPRESSION: The paranasal sinuses appear clear as above. Reading Location: [id number]
== END | disposition home or self-care (01) ==
PROVIDERS: PCP Family Medicine; Referring Provider Family Medicine; Visit Provider Family Medicine
DX: J32.9 Chronic sinusitis, unspecified (principal)
CPT/HCPCS: 70486

== ENCOUNTER → 2024-09-19 | Outpatient (CLI) | payer MEDICARE, SELFPAY ==
[2024-09-19 09:11] LABS: Mucous, Urine 0 SEEN /hpf (<or=2+); White Blood Cells 0 SEEN /hpf (0-5)
[2024-09-19 10:08] LABS: Absolute Lymphocyte Count 1.08 X10^3/uL (0.83-4.51); Absolute Neutrophil Count 4.3 X10^3/uL (2.0-7.7); Basophil# 0.04 X10^3/uL; Basophil% 0.6 % (0-1); Eosinophil# 0.22 X10^3/uL; Eosinophils% 3.6 % (0-5); Hematocrit 35.6 % (37-47); Hemoglobin 11.7 g/dL (12.0-15.0); Lymphocyte # 1.08 X10^3/ul (0.83-4.51); Lymphocyte % 17.5 % (19-41); Mean Corp Hgb Conc 32.9 g/dL (32-36); Mean Corpuscular Hgb 31.5 pg (27.0-32.0); Mean Platelet Vol. 9.8 fl (6.2-12.0); Monocyte% 8.1 % (0-10); NRBC Flagged by Analyzer 0 % (0-5); Neutrophil # 4.31 X10^3/uL (2.7-7.7); Neutrophil % 69.7 % (47-70); Platelet Count 311 K/mm3 (150-450); RBC Distribution Width SD 49.6 fl (35.1-43.9); Red Blood Count 3.71 M/mm3 (4.2-5.4); White Blood Count 6.2 K/mm3 (4.4-11.0)
[2024-09-19 10:25] LABS: Color, Urine Yellow (Yellow); Glucose, Dipstick Normal (Normal); Ketone-Dipstick Negative (Negative); Leukocyte Esterase-Dipstick Negative /ul (Negative); Nitrite-Dipstick Negative (Negative); Occult Blood-Urine 25 /ul (Negative); Protein-Dipstick 30 mg/dl (Negative); Specific Gravity, Urine 1.015 (1.002-1.030); Urine Bilirubin Dipstick Negative (Negative); Urine Clarity Sl. Cloudy (Clear); Urine Urobilinogen Normal (Normal)
[2024-09-19 10:31] LABS: Bacteria 2+ /hpf (None Seen); Red Blood Cells-Urine 0-5 SEEN /hpf (0-5); Squamous Epithelial Cells - UA 0-5 SEEN /hpf (5-10)
[2024-09-19 14:41] LABS: ALB/GLOB Ratio 1.2 RATIO (0.9-2.4); AST(SGOT) 18 U/L (<=31); Alanine Aminotransfer ALT/SGPT 13 U/L (<=34); Albumin, Serum 3.8 g/dL (3.4-4.8); Alkaline Phosphatase 72 U/L (35-104); Anion Gap 10 (5-15); BUN 19 mg/dL (4-19); BUN/Creat Ratio 20.4 RATIO (10-20); Carbon Dioxide 25.4 mmol/L (21.0-32.0); Chloride 101 mmol/L (98-108); Cholesterol 160 mg/dL (<=200); Creatinine, Serum 0.95 mg/dL (0.70-1.20); EST Glomerular Filtration Rate 64 (>60); Globulin 3.1 g/dL (2.2-4.2); Glucose 95 mg/dL (70-99); High Density Lipoprotein 51 mg/dL; Low Density Lipoprotein Calc. 97 mg/dL; Potassium 4.6 mmol/L (3.3-5.1); Protein, Total 6.9 g/dL (5.9-8.4); Sodium Level 136 mmol/L (133-145); Total Bilirubin 0.29 mg/dL (0.00-1.30); Triglycerides 60 mg/dL; Very Low Density Lipoprotein 12 mg/dL (5-40); cholesterol:hdl ratio screen 3.11
--- OUTSIDE RECORDS SUMMARY | 2024-09-19 20:16 | XMS RPT_ITS | CCD ---
Author Organization [facility] Care Team Providers Care Internal Review And Audit Compliance Name Role Phone Dr. Cristóbal Nielsen Primary Care Provider [phone] Dr. Cristóbal Nielsen Referring Provider Dr. Prasanth Garcia Attending Provider Dr. Prasanth Garcia Referring Provider Dr. Prasanth Garcia Other Provider Dr. Cristóbal Nielsen Primary Care Provider [phone] Dr. Prasanth Garcia Attending Provider Dr. Cristóbal Nielsen Primary Care Provider Dr. Cristóbal Nielsen Referring Provider Paco RODRIGUEZ, JENNIFER-Denisha Bishop Attending Provider Gayathri RODRIGUEZ, JENNIFER-Denisha Tidwell Attending Provider SANCHO Wen Attending Provider Elizabeth Bridges Attending Provider Unavailable Dr. John Madden Attending Provider [phone] Cristóbal Nielsen Primary Care Provider Dr. Cristóbal Nielsen Referring Provider SOURAV Antonio NP Attending Provider SOURAV Trinh NP Attending Provider SANCHO Wen Attending Provider Elizabeth Bridges Attending Provider Unavailable Dr. John Madden Attending Provider Dr. Rayna Sandoval Attending Provider Dr. Rayna Sandoval Other Provider [phone] Morales CLINE, Dr. Cristóbal Dhillon Primary Care Provider Morales CLINE, Dr. Cristóbal Dhillon Attending Provider [phone] Morales CLINE, Dr. Cristóbal Dhillon Referring Provider Gayathri LEATHER TANNER-Denisha, Cristóbal Tidwell Attending Provider [phone] Cristóbal Nielsen Primary Care Unavailable Cristóbal Nielsen Referring Unavailable Cristóbal Nielsen Attending Unavailable Cristóbal Nielsen Primary Care Unavailable SchCristóbal dee Referring Unavailable Cristóbal Nielsen Attending Unavailable Cristóbal Nielsen Primary Care Unavailable Cristóbal Nielsen Referring Unavailable Cristóbal Nielsen Attending Unavailable Cristóbal Nielsen Primary Care Unavailable Cristóbal Nielsen Referring Unavailable Cristóbal Nielsen Attending Unavailable [facility] Cristóbal RODRIGUEZ Attending Unavailable Cristóbal Nielsen Primary Care Unavailable Cristóbal Nielsen Referring Unavailable Cristóbal Nielsen Primary Care Unavailable Cristóbal Nielsen Attending Unavailable Cristóbal Nielsen Attending Unavailable Cristóbal Nielsen Primary Care Unavailable Cristóbal Nielsen Referring Unavailable Allergies Allergy Classification Reported Allergen(s) Allergy Type Date of Onset Reaction(s) Facility (1 source) Adhesive Tape Drug allergy (disorder) 05-24-2024 [facility] Repository Medications Current Medications Medication Drug Class(es) Dates Sig (Normalized) Sig (Original) aspirin 81 mg delayed release oral tablet (20 sources) Platelet Aggregation Inhibitor, Nonsteroidal Anti-inflammatory Drug Start: 12-22-2018 take 1 tablet by mouth once daily Aspirin (Adult Aspirin Regimen) 81 mg tablet,delayed release (DR/EC) Active 81 mg PO DAILY December 22, 2018 12:00am Start: 12-03-2017 End: 02-02-2018 take 1 tablet by mouth once daily Aspirin (Adult Aspirin Regimen) 81 mg tablet,delayed release (DR/EC) Discontinued 81 mg PO DAILY December 03, 2017 12:00am February 02, 2018 1:45pm benzonatate 200 mg oral capsule (16 sources) Non-narcotic Antitussive Start: 05-17-2023 take 1 capsule by mouth three times daily as needed for cough Benzonatate 200 mg capsule Active 200 mg PO THREE TIMES A DAY as needed for cough May 17, 2023 1:00am Start: 10-11-2018 End: 12-22-2018 take 1 capsule by mouth three times daily as needed for cough Benzonatate 100 mg capsule Discontinued 100 mg PO THREE TIMES A DAY as needed for cough October 11, 2018 12:00am December 22, 2018 1:51pm cholecalciferol 0.05 mg oral capsule (16 sources) Vitamin D Start: 04-14-2023 take 1 capsule by mouth twice daily Cholecalciferol (Vitamin D3) 50 mcg (2,000 unit) capsule Active 50 ug PO TWICE A DAY April 14, 2023 1:00am Start: 12-03-2017 End: 12-07-2017 take 1 capsule by mouth three times weekly Cholecalciferol (Vitamin D3) 400 unit capsule Discontinued 400 U PO .COMPLEX December 03, 2017 12:00am December 07, 2017 1:40pm 400 unit PO three times per week famotidine 40 mg oral tablet (3 sources) Histamine-2 Receptor Antagonist Start: 06-28-2023 take 1 tablet by mouth once daily in the evening Famotidine 40 mg tablet Active 40 mg PO EVERY EVENING June 28, 2023 12:00am 30 actuat fluticasone furoate 0.2 mg/actuat / vilanterol 0.025 mg/actuat dry powder inhaler (2 sources) Corticosteroid, beta2-Adrenergic Agonist Start: 05-24-2024 Fluticasone Furoate-Vilanterol (Breo Ellipta) 200-25 mcg/dose blister with device Active 1 NMA INHALATION Q24H May 24, 2024 1:00am losartan potassium 50 mg oral tablet (20 sources) Angiotensin 2 Receptor Padma Start: 05-24-2024 Losartan 50 mg tablet Active 25 mg PO DAILY May 24, 2024 9:34am Start: 04-14-2023 End: 05-24-2024 take 1 tablet by mouth once daily Losartan 50 mg tablet Discontinued 50 mg PO DAILY April 14, 2023 12:03pm May 24, 2024 9:36am Start: 01-25-2020 End: 04-14-2023 take 1 tablet by mouth twice daily Losartan 50 mg tablet Discontinued 50 mg PO TWICE A DAY January 26, 2022 9:54am April 14, 2023 12:03pm Start: 03-27-2019 End: 01-25-2020 take 1 tablet by mouth once daily Losartan 50 mg tablet Discontinued 50 mg PO DAILY March 27, 2019 5:29pm January 25, 2020 9:01am Start: 02-15-2019 End: 03-27-2019 take 1 tablet by mouth once daily Losartan 25 mg tablet Discontinued 25 mg PO DAILY February 15, 2019 1:00am March 27, 2019 5:29pm Multivitamin preparation (3 sources) Start: 04-14-2023 take 1 tablet by mouth once daily Multivitamin Active 1 TABLET PO DAILY April 14, 2023 1:00am Start: 04-14-2023 take 1 tablet by brett th once daily Multivitamin Active 1 TABLET PO DAILY April 14, 2023 12:00am omeprazole 40 mg delayed release oral capsule (13 sources) Proton Pump Inhibitor Start: 05-24-2024 take 1 capsule by mouth once daily Omeprazole 40 mg capsule,delayed release(DR/EC) Active 40 mg PO daily May 24, 2024 1:00am Start: 04-03-2013 End: 12-03-2017 take 1 capsule by mouth at bedtime Omeprazole 20 MG capsule Discontinued 20 mg PO AT BEDTIME April 03, 2013 1:00am December 03, 2017 8:27pm oxybutynin chloride 5 mg oral tablet (5 sources) Cholinergic Muscarinic Antagonist Start: 05-17-2023 take 1 tablet by mouth once daily Oxybutynin Chloride 5 mg tablet Active 5 mg PO DAILY May 17, 2023 1:00am sertraline 50 mg oral tablet (16 sources) Serotonin Reuptake Inhibitor Start: 04-14-2023 take 1 tablet by mouth once daily Sertraline (Zoloft) 50 mg tablet Active 50 mg PO DAILY April 14, 2023 1:00am Start: 04-03-2013 End: 12-03-2017 take 1 tablet by mouth at bedtime Sertraline 50 MG tablet Discontinued 50 mg PO AT BEDTIME April 03, 2013 1:00am December 03, 2017 8:26pm Completed/Discontinued Medications Medication Drug Class(es) Dates Sig (Normalized) Sig (Original) ascorbic acid 1000 mg extended release oral tablet (11 sources) Vitamin C Start: 01-27-2021 End: 05-24-2024 Ascorbic Acid (Vitamin C) 1,000 mg tablet extended release Discontinued 500 mg PO Q12H January 27, 2021 12:00am May 24, 2024 9:35am Start: 01-27-2021 take 500 mg by mouth every twelve hours Ascorbic Acid (Vitamin C) Active 500 MG PO Q12H January 27, 2021 12:00am azithromycin 250 mg oral tablet (11 sources) Macrolide Antimicrobial Start: 10-11-2018 End: 12-22-2018 take 2-5 tablets by mouth once daily Azithromycin 250 mg tablet Discontinued 0 PO .COMPLEX 6 October 11, 2018 12:00am December 22, 2018 1:51pm take 500 mg today (day 1), then 250 mg for 4 days (days 2-5) PO clopidogrel 75 mg oral tablet (11 sources) P2Y12 Platelet Inhibitor Start: 01-10-2019 End: 02-15-2019 take 1 tablet by mouth once daily Clopidogrel (Plavix) 75 mg tablet Discontinued 75 mg PO DAILY January 10, 2019 12:00am February 15, 2019 11:54am DULoxetine 60 mg delayed release oral capsule (11 sources) Serotonin and Norepinephrine Reuptake Inhibitor Start: 12-03-2017 End: 02-02-2022 take 1 capsule by mouth once daily Duloxetine (Cymbalta) 60 mg capsule,delayed release(DR/EC) Discontinued 60 mg PO DAILY December 03, 2017 12:00am February 02, 2022 3:16pm folic acid 1 mg oral tablet (11 sources) Start: 12-03-2017 End: 02-02-2022 take 2 tablets by mouth once daily Folic Acid 1 mg tablet Discontinued 2 mg PO DAILY December 03, 2017 12:00am February 02, 2022 3:16pm Start: 12-03-2017 End: 02-02-2022 take 2 mg by mouth once daily Folic Acid Discontinued 2 MG PO DAILY December 03, 2017 12:00am February 02, 2022 3:16pm hydroxychloroquine sulfate 200 mg oral tablet (20 sources) Antimalarial, Antirheumatic Agent Start: 01-25-2020 End: 02-02-2022 take 1 tablet by mouth twice daily Hydroxychloroquine 200 mg tablet Discontinued 200 mg PO TWICE A DAY January 25, 2020 12:00am February 02, 2022 3:16pm Start: 12-03-2017 End: 10-11-2018 take 1 tablet by mouth twice daily Hydroxychloroquine (Plaquenil) 200 mg tablet Discontinued 200 mg PO TWICE A DAY December 03, 2017 12:00am October 11, 2018 9:55am methotrexate 2.5 mg oral tablet (20 sources) Folate Analog Metabolic Inhibitor Start: 01-27-2021 End: 02-02-2022 Methotrexate Sodium 2.5 mg tablet Discontinued 20 mg PO MO January 27, 2021 9:01am February 02, 2022 3:17pm Start: 01-27-2021 End: 02-02-2022 take 20 mg by mouth once Methotrexate Sodium Disconti nued 20 MG PO MO January 27, 2021 9:01am February 02, 2022 3:17pm Start: 02-02-2018 End: 01-27-2021 Methotrexate Sodium 2.5 mg t ablet Discontinued 25 mg PO MO February 02, 2018 1:43pm January 27, 2021 9:01am Start: 02-02-2018 End: 01-27-2021 take 25 mg by mouth once Methotrexate Sodium Disconti nued 25 MG PO MO February 02, 2018 1:43pm January 27, 2021 9:01am Start: 12-03-2017 End: 02-02-2018 Methotrexate Sodium 2.5 mg t ablet Discontinued 20 mg PO EVERY WEEK December 03, 2017 12:00am February 02, 2018 1:45pm Start: 12-03-2017 End: 02-02-2018 take 20 mg by mouth every week Methotrexate Sodium Dis continued 20 MG PO EVERY WEEK December 03, 2017 12:00am February 02, 2018 1:45pm methylPREDNISolone 4 mg oral tablet (16 sources) Corticosteroid Start: 05-17-2023 End: 06-28-2023 take 1 tablet by mouth once Methylprednisolone (Medrol (Sid)) 4 mg tablets,dose pack Discontinued 0 PO per package directions May 17, 2023 1:00am June 28, 2023 1:59pm PO PER PKG DIR Start: 10-11-2018 End: 10-16-2018 take 1 tablet by mouth once Methylprednisolone (Medrol (Sid)) 4 mg tablets,dose pack Discontinued 4 mg PO per package directions 23 08October 11, 2018 12:00am 2018 12:00am October 16, 2018 12:09am metoprolol tartrate 50 mg oral tablet (20 sources) beta-Adrenergic Padma Start: 07-06-2019 End: 03-22-2024 take 1 tablet by mouth twice daily Metoprolol Tartrate 50 mg tablet Discontinued 50 mg PO TWICE A DAY 180 March 18, 2023 9:27am March 22, 2024 9:02am Start: 12-07-2017 End: 07-06-2019 take 1 tablet by mouth twice daily Metoprolol Tartrate 25 mg tablet Discontinued 25 mg PO TWICE A DAY December 22, 2018 1:52pm July 06, 2019 9:21am Multivitamin tablet (2 sources) Start: 04-14-2023 End: 05-24-2024 Multivitamin tablet Discontinued 1 {tbl} PO DAILY April 14, 2023 1:00am May 24, 2024 9:35am naproxen sodium 220 mg oral tablet (11 sources) Nonsteroidal Anti-inflammatory Drug Start: 04-03-2013 End: 12-03-2017 take 1-2 mg by mouth once daily as needed for pain Naproxen Sodium 220 MG tablet Discontinued 1 - 2 mg PO DAILY NEEDED as needed for Pain April 03, 2013 1:00am December 03, 2017 8:27pm pantoprazole 20 mg delayed release oral tablet (20 sources) Proton Pump Inhibitor Start: 12-07-2017 End: 01-04-2020 take 1 tablet by mouth once daily Pantoprazole (Protonix) 20 mg tablet,delayed release (DR/EC) Discontinued 20 mg PO DAILY December 16, 2018 1:56pm January 04, 2020 9:33am Problems Active Problems Problem Classification Problem Date Documented Date Episodic/Chronic Acute bronchitis (11 sources) Acute bronchitis; Translations: [Acute bronchitis, unspecified] 10-11-2018 Episodic Aortic; peripheral; and visceral artery aneurysms (4 sources) Ascending aorta dilatation; Translations: [Thoracic aortic ectasia] 05-24-2024 Chronic Esophageal disorders (11 sources) Gastroesophageal reflux disease; Translations: [Gastro-esophageal reflux disease without esophagitis] 02-04-2018 Chronic Essential hypertension (18 sources) Essential hypertension; Translations: [Essential (primary) hypertension] Onset: 05-31-2024 Chronic Heart valve disorders (20 sources) Tricuspid incompetence, non-rheumatic ; Translations: [Nonrheumatic tricuspid (valve) insufficiency] Chronic Comment on above: Mild (1+) per echo Nonspecific chest pain (20 sources) Chest pain; Translations: [Chest pain, unspecified] Episodic Other and unspecified benign neoplasm (3 sources) History of polyp of colon; Translations: [Personal history of colonic polyps] 06-30-2023 Episodic Other upper respiratory infections (1 source) Chronic sinusitis, unspecified; Translations: [Chronic sinusitis, unspecified] Onset: 07-19-2024 Chronic Residual codes; unclassified (3 sources) Family history of cancer of colon; Translations: [Family history of malignant neoplasm of digestive organs] 06-30-2023 Episodic Past or Other Problems Problem Classification Problem Date Documented Date Episodic/Chronic Other lower respiratory disease (1 source) Hemoptysis; Translations: [Hemoptysis] Onset: 02-22-2024 Episodic Other screening for suspected conditions (not mental disorders or infectious disease) (6 sources) Patient encounter status; Translations: [Encounter for screening for malignant neoplasm of colon] Onset: 11-09-2023 05-24-2023 Episodic Residual codes; unclassified (11 sources) History of cardiac catheterization; Translations: [Other specified postprocedural states] Onset: 02-15-2019 02-15-2019 Episodic Comment on above: Normal coronaries, n ormal LVEDP, normal EF. Losartan added for HTN. per [facility] @ [facility] 02/15/19 Results Test Name Value Interpretation Reference Range Facility Sinus/Facial Boneon 07-15-19 Sinus/Facial Bone [facility] Services [address] [place], [place] [address] Sinus/Facial Bone MR#: [id number] Acct: [id number] Name: MARIANNE JOYCE STACIE Rep #: [id number] : 1955 F 68 From: Dion Najera MD PCP: Dr. Cristóbal Nielsen MD Status: REG CLI Study: Sinus/Facial Bone Date of Exam: 07/14/24 Exam# [id number] Ordering Dr: Cristóbal Nielsen MD PROCEDURE: SINUS/FACIAL BONE REASON FOR EXAM: SINUSITIS TECHNIQUE: CT of the paranasal sinuses without contrast. Coronal and Sagittal reconstruction series were provided. One or more dose reduction techniques were used (e.g., Automated exposure control, adjustment of the mA and/or kV according to patient size, use of iterative reconstruction technique). COMPARISON: None. FINDINGS: The paranasal sinuses are clear. No air-fluid levels. No wall thickening or sclerosis. The ostiomeatal complexes, frontoethmoidal and sphenoethmoidal recesses appear clear. The turbinates appear within limits. Bilateral robert bullosa, incidental. Slight leftward bowing of the nasal septum with an anterior nasal septal spur for example coronal 36. The infratemporal fossa fat appears preserved. Pterygopalatine foramen appear within limits. 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 TMJs appear normally located. Orbits appear within limits. Previous bilateral cataract surgery. The mastoids appear clear. Middle and inner ears appear within limits. Internal auditory canals appear within limits. [place] artifact from dental amalgam. No periapical lucency identified. C4-5 spondylosis/discoge mo change. CT/Sinus/Facial Bone IMPRESSION: The paranasal sinuses appear clear as above. Reading Location: [id number] CC: Dr. Cristóbal Nielsen MD Electronic Components Assembler: Signed Normal [facility] Brain/Head without Contrasto n 06-13-2024 Brain/Head without Contrast [facility] [address] [place] [id number] Brain/Head without Contrast MR#: [id number] Acct: [id number] Name: MARIANNE JOYCE STACIE Rep #: [id number] : 1955 F 68 From: Dion Oakes PCP: Dr. Cristóbal Nielsen MD Status: REG CLI Study: Brain/Head without Contrast Date of Exam: 06/03 04/29 Exam# [id number] Ordering Dr: Cristóbal Nielsen MD EXAM: CT brain without IV contrast CLINICAL HISTORY: Pain, sinusitis, headaches COMPARISON: None TECHNIQUE: Multiple contiguous axial images through the brain were obtained without the administration of intravenous contrast. Two-dimensional coronal and sagittal reformatted images were reconstructed. Low-dose imaging technique was utilized. FINDINGS: No evidence of acute intracranial hemorrhage, midline shift or mass effect. No definite CT evidence of acute territorial cortical infarction. No hydrocephalus. Mild cerebral atrophy and chronic small-vessel ischemic changes. Calvarium is intact. Paranasal sinuses and mastoid air cells are clear. CT/Brain/Head without Contrast IMPRESSION: 1. No acute intracranial abnormality. 2. Mild atrophy and chronic small-vessel ischemic disease. Reading Location: [facility] CC: Dr. Cristóbal Nielsen MD Electronic Components Assembler: Signed Normal [facility] Cardiology Visit Reporton Cardiology Visit Report [facility] [address] [place] [address] OFFICE VISIT Date of Service: 05/24/24 MR#: [id number] Acct: [id number] Name: MARIANNE JOYCE Rep #: [id number] : 1955 Provider: SOURAV knight Age/Sex: 68/F Location: [facility] [place] Status: Signed HPI HPI History of Present Illness Details: This is a 68-year-old female who presents here today for a cardiovascular follow-up with a history of hypertension, MR/TR per remote echocardiogram, and a family history of coronary artery disease. She denies chest, arm, jaw, or neck discomfort. She states intermittent palpitations. This is short lasting and occurs at rest. She denies bilateral lower extremity edema. She denies claudication. She denies shortness of breath with activity, shortness of breath at rest, orthopnea, or PND. She denies chronic cough. She denies significant, sudden weight gain. She denies lightheadedness, dizziness, near-syncope, or syncope. She denies blood in urine, blood in stool, or epistaxis. He denies fever with chills. She denies myalgia. She denies fatigue. Her exercise level has remained stable. Intake Vital Signs 04/14/23 10:49 10/12/23 14:46 05/24/24 08:29 Height 5 ft 3 in 5 ft 3 in 5 ft 3 in Weight: 213 lb BMI 37.7 BP 127/87 H Blood Pressure Location Lt brachial Position Sitting Respiration 20 H Pulse 65 Pulse Source Monitor Pulse Oximetry (%) 95 Intake Visit Reasons: 1 Y FU/PREV PFM Donor Technician Required: No Is patient in pain?: No Allergies adhesive tape Adverse Reaction (Verified 05/24/24 08:34) Rash Medications ???Medication ???Instructions ???Recorded ???Confirmed ???Type aspirin 81 mg tablet,delayed 81 mg PO DAILY #1 TAB 12/22/18 Rx release (Adult Aspirin Regimen) cholecalciferol (vitamin D3) 50 50 mcg PO BID 04/14/23 05/24/24 Hi story mcg (2,000 unit) capsule sertraline 50 mg tablet (Zoloft) 50 mg PO DAILY 04/14/23 05/24/24 H istory benzonatate 200 mg capsule 200 mg PO TID PRN cough #14 caps 0 05/17/23 05/24/24 Rx oxybutynin chloride 5 mg tablet 5 mg PO DAILY 05/17/23 05/24/24 Hi story famotidine 40 mg tablet 40 mg PO QPM 06/28/23 05/24/24 His tory metoprolol tartrate 50 mg tablet 50 mg PO BID #180 TABLETS 03/22/24 05/24/24 Rx fluticasone furoate 200 1 inh inhalation Q24H 05/24/24 History mcg-vilanterol 25 mcg/dose inhalation powder (Breo Ellipta) losartan 50 mg tablet 25 mg PO DAILY 05/24/24 05/24/24 H istory omeprazole 40 mg capsule,delayed 40 mg PO QDAY 05/24/24 05/24/24 Hi story release Have you fallen in the past year?: No PFSH Medical History Depression Easy bruising Non-smoker History of stress test Cardiology follow-up encounter Family history of colon cancer in mother Hx of colonic polyp Essential hypertension Knee pain SOB (shortness of breath) Nonrheumatic tricuspid (valve) insufficiency Nonrheumatic mitral (valve) insufficiency Rheumatoid arthritis History of skin cancer Chest pain GERD (gastroesophageal reflux disease) Diverticulitis Surgical History History of colonoscopy with polypectomy History of left heart catheterization (02/15/19) History of wisdom tooth extraction History of hysterectomy History of basal cell carcinoma excision Family History Mother Colon cancer, Onset Age: 52 with colon ca at 55yrs. Father Lung cancer Sister History of heart valve replacement Cardiac pacemaker in situ Cancer skin Thyroid disorder Grandmother Rectal cancer Social History current occupational status: retired Smoking Status: Never smoker alcohol intake: current alcohol intake frequency: a few times a month substance use type: does not use ROS Const Const: Negative for fatigue, weakness, body ache, fever(s) or chills ENT ENT: Negative for dizziness or Nosebleed/epistaxis Cardio Chest Pain: No Palpitations: Yes Edema: None Muscle aches with walking: None Resp Respiratory: Negative for SOB with activity, SOB at rest, SOB orthopnea SOB lying down, Cough or paroxysmal nocturnal dyspnea GI GI: Negative nausea, vomiting blood/hematemesis, bright, red blood in stools or black,tarry stools : Negative for hematuria or frequent nighttime urination/ nocturia Musc Musc: Negative for muscle aches/ myalgia Skin Skin: Negative non-healing lesions or rash Neuro Neuro: Negative for dizziness, lightheadedness, near syncope, syncope, orthostatic symptoms or weakness Endo Endo: Negative for fatigue Allergy Allergy/Immunolo (more content not included)... Normal [facility] [id number] DOrdered By: Higinio Nielsen on 05-16-2024 Vitamin D 25-Hydroxy 46.1 ng/mL [facility] Comment on above: Vitamin D 25(OH) Sta tus Range Deficiency <20 ng/mL (50nmol/L) Insufficiency 20 - 30 ng/mL (50 - 75 nmol/L) Sufficiency 30 - 100 ng/mL (75 - 250 nmol/L) Toxicity >100 ng/mL (>250 nmol/L) Absolute neutrophil countOrd ered By: Crisótbal Nielsen on 05-16-2024 Neutrophils (Bld) [#/Vol] 5.1 10*3/uL 2.0-7.7 [facility] Albumin to globulin ratioOrd ered By: Cristóbal Nielsen on 05-16-2024 Albumin/Globulin [Mass ratio] 0.8 {ratio} Low 0.9-2.4 [facility] Basophil percentageOrdered B y: Cristóbal Nielsen on 05-16-2024 Basophils/100 WBC (Bld) 0.4 % 0-1 [facility] Bilirubin, totalOrdered By: Cristóbal Nielsen on 05-16-2024 Bilirubin [Mass/Vol] 0.40 mg/dL 0.20-1.00 [facility] Comment on above: For patients on eltr ombopag therapy, use of Dimension [place] TBIL is not recommended. Blood urea nitrogen (BUN)/cr eatinine ratioOrdered By: Cristóbal Nielsen on 05-16-2024 Urea nitrogen/Creatinine [Mass ratio] 18.3 mg/mg 10-20 [facility] CBC W/Diff, Automatedon 05-06 Absolute Lymph 0.90 X10 3/uL Normal 0.83-4.51 [facility] Comment on above: Order Comment: Order Date: 05/16/24 Order Info: [id number] - CBCD Performed By: #### L 506.1000, L100.0100, L500.4050 #### [facility] [address] [place], [address] Absolute Neut 5.1 X10 3/uL Normal 2.0-7.7 [facility] Comment on above: Order Comment: Order Date: 05/16/24 Order Info: [id number] - CBCD Performed By: #### L 506.1000, L100.0100, L500.4050 #### [facility] [address] [place], [address] Basophils/100 WBC (Bld) 0.4 % Normal 0-1 [facility] Comment on above: Order Comment: Order Date: 05/16/24 Order Info: [id number] - CBCD Performed By: #### L 506.1000, L100.0100, L500.4050 #### [facility] [address] [place], [address] Eosinophils/100 WBC (Bld) 2.5 % Normal 0-5 [facility] Comment on above: Order Comment: Order Date: 05/16/24 Order Info: [id number] - CBCD Performed By: #### L 506.1000, L100.0100, L500.4050 #### [facility] [address] [place], [address] Erythrocyte distribution width (RBC) [Ratio] 13.7 % Normal 11.6-14.6 [facility] Comment on above: Order Comment: Order Date: 05/16/24 Order Info: [id number] - CBCD Performed By: #### L 506.1000, L100.0100, L500.4050 #### [facility] [address] [place], [address] Hematocrit (Bld) [Volume fraction] 37.8 % Normal 37-47 [facility] Comment on above: Order Comment: Order Date: 05/16/24 Order Info: 0184- - CBCD Performed By: #### L 506.1000, L100.0100, L500.4050 #### [facility] [address] [place], [address] Hemoglobin (Bld) [Mass/Vol] 12.2 g/dL Normal 12.0-15.0 [facility] Comment on above: Order Comment: Order Date: 05/16/24 Order Info: 0184-1 - CBCD Performed By: #### L 506.1000, L100.0100, L500.4050 #### [facility] [address] [place], [address] IG% 0.400 Normal 0.0-0.9 [facility] Comment on above: Order Comment: Order Date: 05/16/24 Order Info: 0184-1 - CBCD Result Comment: IG% - Immature Granulocytes (promyelocytes, myelocytes and metamyelocytes) > 1% indicates that a LEFT SHIFT is Present. Performed By: #### L 506.1000, L100.0100, L500.4050 #### [facility] [address] [place], [address] Lymphocytes/100 WBC (Bld) 13.3 % Low 19-41 [facility] Comment on above: Order Comment: Order Date: 05/16/24 Order Info: 0184-1 - CBCD Performed By: #### L 506.1000, L100.0100, L500.4050 #### [facility] [address] [place], [address] MCH (RBC) [Entitic mass] 31.3 pg Normal 27.0-32.0 [facility] Comment on above: Order Comment: Order Date: 05/16/24 Order Info: 0184-1 - CBCD Performed By: #### L 506.1000, L100.0100, L500.4050 #### [facility] [address] [place], [address] MCHC (RBC) [Mass/Vol] 32.3 g/dL Normal 32-36 [facility] Comment on above: Order Comment: Order Date: 05/16/24 Order Info: 0184-1 - CBCD Performed By: #### L 506.1000, L100.0100, L500.4050 #### [facility] [address] [place], [address] MCV (RBC) [Entitic vol] 96.9 fL Normal 81-[address] [facility] Comment on above: Order Comment: Order Date: 05/16/24 Order Info: 0184-1 - CBCD Performed By: #### L 506.1000, L100.0100, L500.4050 #### [facility] [address] [place], [address] Monocytes/100 WBC (Bld) 8.3 % Normal 0-[address] [facility] Comment on above: Order Comment: Order Date: 05/16/24 Order Info: 0184-1 - CBCD Performed By: #### L 506.1000, L100.0100, L500.4050 #### [facility] [address] [place], [address] Neutrophils/100 WBC (Bld) 75.1 % High 47-70 [facility] Comment on above: Order Comment: Order Date: 05/16/24 Order Info: 0184-1 - CBCD Performed By: #### L 506.1000, L100.0100, L500.4050 #### [facility] [address] [place], [address] Nucleated RBC (Bld) [#/Vol] 0 10*3/uL Normal 0-5 [facility] Comment on above: Order Comment: Order Date: 05/16/24 Order Info: 0184-1 - CBCD Performed By: #### L 506.1000, L100.0100, L500.4050 #### [facility] [address] [place], [address] Platelet mean volume (Bld) [Entitic vol] 10.6 fL Normal 6.2-12.0 [facility] Comment on above: Order Comment: Order Date: 05/16/24 Order Info: 0184-1 - CBCD Performed By: #### L 506.1000, L100.0100, L500.4050 #### [facility] [address] [place], [address] Platelets (Bld) [#/Vol] 297 10*3/uL Normal 150-450 [facility] Comment on above: Order Comment: Order Date: 05/16/24 Order Info: 0184-1 - CBCD Performed By: #### L 506.1000, L100.0100, L500.4050 #### [facility] [address] [place], [address] RBC (Bld) [#/Vol] 3.90 10*6/uL Low 4.2-5.4 [facility] Comment on above: Order Comment: Order Date: 05/16/24 Order Info: 0184-1 - CBCD Performed By: #### L 506.1000, L100.0100, L500.4050 #### [facility] [address] [place], [address] RDW SD 48.6 fl High 35.1-43.9 [facility] Comment on above: Order Comment: Order Date: 05/16/24 Order Info: 0184-1 - CBCD Performed By: #### L 506.1000, L100.0100, L500.4050 #### [facility] [address] [place], [address] WBC (Bld) [#/Vol] 6.8 10*3/uL Normal 4.4-11.0 [facility] Comment on above: Order Comment: Order Date: 05/16/24 Order Info: 0184-1 - CBCD Performed By: #### L 506.1000, L100.0100, L500.4050 #### [facility] [address] [place], [address] Carbon dioxide measurementOr dered By: Cristóbal Nielsen on 05-16-2024 CO2 [Moles/Vol] 27.0 mmol/L 21.0-32.0 [facility] Chloride measurementOrdered By: Cristóbal Nielsen on 05-16-2024 Chloride [Moles/Vol] 103 mmol/L 98-107 [facility] Comprehensive Metabolic Prof ilon 05-16-2024 Albumin [Mass/Vol] 3.3 g/dL Normal 3.2-5.0 [facility] Comment on above: Order Comment: Order Date: 05/16/24 Order Info: 0786-1 - CMP Performed By: #### L 506.1000, L100.0100, L500.4050 #### [facility] [address] [place], [address] Albumin/Globulin [Mass ratio] 0.8 {ratio} Low 0.9-2.4 [facility] Comment on above: Order Comment: Order Date: 05/16/24 Order Info: 0786-1 - CMP Performed By: #### L 506.1000, L100.0100, L500.4050 #### [facility] [address] [place], [address] ALK P 70 U/L Normal 45-117 [facility] Comment on above: Order Comment: Order Date: 05/16/24 Order Info: 0786-1 - CMP Performed By: #### L 506.1000, L100.0100, L500.4050 #### [facility] [address] [place], [address] ALT [Catalytic activity/Vol] 15 U/L Normal 13-56 [facility] Comment on above: Order Comment: Order Date: 05/16/24 Order Info: 0786-1 - CMP Performed By: #### L 506.1000, L100.0100, L500.4050 #### [facility] [address] [place], [address] AST [Catalytic activity/Vol] 14 U/L Low 15-37 [facility] Comment on above: Order Comment: Order Date: 05/16/24 Order Info: 0786-1 - CMP Performed By: #### L 506.1000, L100.0100, L500.4050 #### [facility] [address] [place], [address] Bilirubin [Mass/Vol] 0.40 mg/dL Normal 0.20-1.00 [facility] Comment on above: Order Comment: Order Date: 05/16/24 Order Info: 0786-1 - CMP Result Comment: For patients on eltrombopag therapy, use of Dimension [place] TBIL is not recommended. Performed By: #### L 506.1000, L100.0100, L500.4050 #### [facility] [address] [place], [address] BUN/CRE 18.3 RATIO Normal 10-20 [facility] Comment on above: Order Comment: Order Date: 05/16/24 Order Info: 0786-1 - CMP Performed By: #### L 506.1000, L100.0100, L500.4050 #### [facility] [address] [place], [address] CA,Total 9.1 mg/dL Normal 8.5-10.1 [facility] Comment on above: Order Comment: Order Date: 05/16/24 Order Info: 0786-1 - CMP Performed By: #### L 506.1000, L100.0100, L500.4050 #### [facility] [address] [place], [address] Chloride [Moles/Vol] 103 mmol/L Normal 98-107 [facility] Comment on above: Order Comment: Order Date: 05/16/24 Order Info: 0786-1 - CMP Performed By: #### L 506.1000, L100.0100, L500.4050 #### [facility] [address] [place], [address] CO2 [Moles/Vol] 27.0 mmol/L Normal 21.0-32.0 [facility] Comment on above: Order Comment: Order Date: 05/16/24 Order Info: 0786-1 - CMP Performed By: #### L 506.1000, L100.0100, L500.4050 #### [facility] [address] [place], [address] Creatinine [Mass/Vol] 1.04 mg/dL High 0.55-1.02 [facility] Comment on above: Order Comment: Order Date: 05/16/24 Order Info: 0786-1 - CMP Result Comment: The validity of the calculated GFR GFRAA in patients over 70 years has not been determined. Clinical correlation is essential. Performed By: #### L 506.1000, L100.0100, L500.4050 #### [facility] [address] [place], [address] EST GFR - AA 67 mL/min Normal >60 [facility] Comment on above: Order Comment: Order Date: 05/16/24 Order Info: 0786-1 - CMP Result Comment: Afri can Nigerian GFR Calc Performed By: #### L 506.1000, L100.0100, L500.4050 #### [facility] [address] [place], [address] GAP 5 Normal 5-15 [facility] Comment on above: Order Comment: Order Date: 05/16/24 Order Info: 0786-1 - CMP Performed By: #### L 506.1000, L100.0100, L500.4050 #### [facility] [address] [place], [address] GFR/1.73 sq M.predicted among non-blacks MDRD (S/P/Bld) [Vol rate/Area] 56 mL/min/{1.73_m2} Low >60 [facility] Comment on above: Order Comment: Order Date: 05/16/24 Order Info: 0786-1 - CMP Result Comment: Non- GFR Calc Performed By: #### L 506.1000, L100.0100, L500.4050 #### [facility] [address] [place], [address] Globulin (S) [Mass/Vol] 4.2 g/dL Normal 2.2-4.[address] [facility] Comment on above: Order Comment: Order Date: 05/16/24 Order Info: 0786-1 - CMP Performed By: #### L 506.1000, L100.0100, L500.4050 #### [facility] [address] [place], [address] Glucose [Mass/Vol] 77 mg/dL Normal 74-106 [facility] Comment on above: Order Comment: Order Date: 05/16/24 Order Info: 0786-1 - CMP Performed By: #### L 506.1000, L100.0100, L500.4050 #### [facility] [address] [place], [address] Potassium [Moles/Vol] 4.2 mmol/L Normal 3.5-5.1 [facility] Comment on above: Order Comment: Order Date: 05/16/24 Order Info: 0786-1 - CMP Performed By: #### L 506.1000, L100.0100, L500.4050 #### [facility] [address] [place], [address] Sodium [Moles/Vol] 135 mmol/L Low 136-145 [facility] Comment on above: Order Comment: Order Date: 05/16/24 Order Info: 0786-1 - CMP Performed By: #### L 506.1000, L100.0100, L500.4050 #### [facility] [address] [place], [address] T PROT 7.5 g/dL Normal 6.4-8.2 [facility] Comment on above: Order Comment: Order Date: 05/16/24 Order Info: 0786-1 - CMP Performed By: #### L 506.1000, L100.0100, L500.4050 #### [facility] [address] [place], [address] Urea nitrogen [Mass/Vol] 19 mg/dL High 7-18 [facility] Comment on above: Order Comment: Order Date: 05/16/24 Order Info: 0786-1 - CMP Performed By: #### L 506.1000, L100.0100, L500.4050 #### [facility] [address] [place], [address] Eosinophil percentageOrdered By: Cristóbal Nielsen on 05-16-2024 Eosinophils/100 WBC (Bld) 2.5 % 0-5 [facility] Erythrocyte distribution wid th ratioOrdered By: Cristóbal Nielsen on 05-16-2024 Erythrocyte distribution width (RBC) [Ratio] 13.7 % 11.6-14.6 [facility] Erythrocyte distribution wid th standard deviationOrdered By: Cristóbal Nielsen on 05-16-2024 Erythrocyte distribution width (RBC) [Entitic vol] 48.6 fL High 35.1-43.9 [facility] Estimated glomerular filtrat ion rate (GFR) AmericanOrdered By: Cristóbal Nielsen on 05-16-2024 Estimated GFR (MDRD) Amer 67 mL/min >60 [facility] Comment on above: GFR Calc Glomerular filtration rate ( GFR) estimationOrdered By: Cristóbal Nielsen on 05-16-2024 Estimated GFR (MDRD) Non-Af Amer 56 mL/min Low >60 [facility] Comment on above: Non- GFR Calc Glucose measurementOrdered B y: Cristóbal Nielsen on 05-16-2024 Glucose [Mass/Vol] 77 mg/dL 74-106 [facility] Hematocrit Auto (Bld) [Volum e fraction]Ordered By: Cristóbal Nielsen on 05-16-2024 Hematocrit (Bld) [Volume fraction] 37.8 % 37-47 [facility] Hemoglobin measurementOrdere d By: Cristóbal Nielsen on 05-16-2024 Hemoglobin (Bld) [Mass/Vol] 12.2 g/dL 12.0-15.0 [facility] Immature granulocytes/100 WB C Auto (Bld)Ordered By: Cristóbal Nielsen on 05-16-2024 Immature granulocytes/100 WBC (Bld) 0.400 % 0.0-0.9 [facility] Comment on above: IG% - Immature Granu locytes (promyelocytes, myelocytes and metamyelocytes) > 1% indicates that a LEFT SHIFT is Present. Laboratory - Chemistry and C hemistry - challengeOrdered By: Cristóbal Nielsen on 05-16-2024 AST [Catalytic activity/Vol] 14 U/L Low 15-37 [facility] Lymphocytes Auto (Unsp spec) [#/Vol]Ordered By: Cristóbal Nielsen on 05-16-2024 Lymphocytes (Bld) [#/Vol] 0.90 10*3/uL 0.83-4.5 1 [facility] Lymphocytes/100 WBC Auto (Un sp spec)Ordered By: Cristóbal Nielsen on 05-16-2024 Lymphocytes/100 WBC (Bld) 13.3 % Low 19-41 [facility] MCV (mean corpuscular volume ) determinationOrdered By: Cristóbal Nielsen on 05-16-2024 MCV (RBC) [Entitic vol] 96.9 fL 81-99 [facility] Mean corpuscular hemoglobin (MCH) determinationOrdered By: Cristóbal Nielsen on 05-16-2024 MCH (RBC) [Entitic mass] 31.3 pg 27.0-32.0 [facility] Mean corpuscular hemoglobin concentration (MCHC) determinationOrdered By: Cristóbal Nielsen on 05-16-2024 MCHC (RBC) [Mass/Vol] 32.3 g/dL 32-36 [facility] Mean platelet volume determi nationOrdered By: Cristóbal Nielsen on 05-16-2024 Platelet mean volume (Bld) [Entitic vol] 10.6 fL 6.2-12.0 [facility] Monocyte percentageOrdered B y: Cristóbal Nielsen on 05-16-2024 Monocytes/100 WBC (Bld) 8.3 % 0-10 [facility] Neutrophil percentageOrdered By: Cristóbal Nielsen on 05-16-2024 Neutrophils/100 WBC (Bld) 75.1 % High 47-70 [facility] Nucleated red blood cell per centageOrdered By: Cristóbal Nielsen on 05-16-2024 Nucleated RBC/100 WBC (Bld) [Ratio] 0 % 0-5 [facility] Platelet countOrdered By: Lesly Nielsen on 05-16-2024 Platelets (Bld) [#/Vol] 297 10*3/uL 150-450 [facility] Potassium measurementOrdered By: Cristóbal Nielsen on 05-16-2024 Potassium [Moles/Vol] 4.2 mmol/L 3.5-5.1 [facility] RBC Auto (Bld) [#/Vol]Ordere d By: Cristóbal Nielsen on 05-16-2024 RBC (Bld) [#/Vol] 3.90 10*6/uL Low 4.2-5.4 [facility] Serum anion gap measurementO rdered By: Cristóbal Nielsen on 05-16-2024 Anion gap [Moles/Vol] 5 mmol/L 5-15 [facility] Serum globulin measurementOr dered By: Cristóbal Nielsen on 05-16-2024 Globulin (S) [Mass/Vol] 4.2 g/dL 2.2-4.[address] [facility] Serum or plasma alanine tuttle otransferase (ALT) measurementOrdered By: Cristóbal Nielsen on 05-16-2024 ALT [Catalytic activity/Vol] 15 U/L 13-56 [facility] Serum or plasma albumin michelle urement (mass/volume)Ordered By: Cristóbal Nielsen on 05-16-2024 Albumin [Mass/Vol] 3.3 g/dL 3.2-5.0 [facility] Serum or plasma alkaline jaspreet sphatase measurementOrdered By: Cristóbal Nielsen on 05-16-2024 ALP [Catalytic activity/Vol] 70 U/L 45-117 [facility] Serum or plasma calcium michelle urement (mass/volume)Ordered By: Cristóbal Nielsen on 05-16-2024 Calcium [Mass/Vol] 9.1 mg/dL 8.5-10.1 [facility] Serum or plasma creatinine m easurement (mass/volume)Ordered By: Cristóbal Nielsen on 05-16-2024 Creatinine [Mass/Vol] 1.04 mg/dL High 0.55-1.02 [facility] Comment on above: The validity of the calculated GFR & GFRAA in patients over 70 years has not been determined. Clinical correlation is essential. Serum or plasma urea nitroge n measurement (mass/volume)Ordered By: Cristóbal Nielsen on 05-16-2024 Urea nitrogen [Mass/Vol] 19 mg/dL High 7-18 [facility] Sodium levelOrdered By: Cristóbal Nielsen on 05-16-2024 Sodium [Moles/Vol] 135 mmol/L Low 136-145 [facility] Total proteinOrdered By: Zachary Nielsen on 05-16-2024 Protein [Mass/Vol] 7.5 g/dL 6.4-8.2 [facility] Vitamin D,25 Hydroxyon 05-16 Vitamin D 25-OH 46.1 ng/mL Normal [facility] Comment on above: Order Comment: Order Date: 05/16/24 Order Info: [id number] - VITD25 Result Comment: Krysta min D 25(OH) Status Range Deficiency <20 ng/mL (50nmol/L) Insufficiency 20 - 30 ng/mL (50 - 75 nmol/L) Sufficiency 30 - 100 ng/mL (75 - 250 nmol/L) Toxicity >100 ng/mL (>250 nmol/L) Performed By: #### L 506.1000, L100.0100, L500.4050 #### [facility] [address] [place], [address] White blood cell (WBC) count Ordered By: Cristóbal Nielsen on 05-16-2024 WBC (Bld) [#/Vol] 6.8 10*3/uL 4.4-11.0 [facility] Chest without Contraston Chest without Contrast [facility] [address] [place] [address] Chest without Contrast MR#: [id number] Acct: [id number] Name: MARIANNE JOYCE STACIE Rep #: [id number] : [id number] F 68 From: Vernell souza MD PCP: Dr. Cristóbal Nielsen MD Status: REG CLI Study: Chest without Contrast Date of Exam: 02/03/24 Exam# [id number] Ordering Dr: Cristóbal Nielsen MD -[id number] HISTORY: hemoptysis. TECHNIQUE: Helically acquired images were obtained of the chest without contrast. A radiation dose optimization technique was used for this scan. 850 images. COMPARISON: XR 05/27/2023. FINDINGS: LARGE AIRWAYS: Patent. LUNGS: Very mild linear atelectasis and scarring in the periphery of the lungs. PLEURA: No pneumothorax or significant pleural effusion. HEART/PERICARDIUM: Heart within normal limits in size with coronary artery calcification. No pericardial effusion. VESSELS: 4.2 cm ascending aorta. Mild atherosclerosis. MEDIASTINUM/ALEXIA: No pathologically enlarged adenopathy. UPPER ABDOMEN: Unremarkable. BONES: Degenerative change. CT/Chest without Contrast IMPRESSION: No evidence for acute lung or pleural disease. Mildly dilated ascending thoracic aorta. Electronically Signed: Vernell Saldana MD at 15:48 EDT , CC: Dr. Cristbóal Nielsen MD [employer] Components Assembler: Signed Normal [facility] CBC W/Diff, Automatedon 10-0 Absolute Lymph 1.05 X10 3/uL Normal 0.83-4.51 [facility] Comment on above: Order Comment: Order Date: 09/16/23 Order Info: 0184-1 - CBCD Performed By: #### L 503.0105, L501.9520, L503.6150, L100.0100, L500.4100, L500.4050, L503.6075, L506.0250, L503.6550, L506.1000, L501.5200 #### [facility] [address] [place], [address] Absolute Neut 4.9 X10 3/uL Normal 2.0-7.7 [facility] Comment on above: Order Comment: Order Date: 09/16/23 Order Info: 0184-1 - CBCD Performed By: #### L 503.0105, L501.9520, L503.6150, L100.0100, L500.4100, L500.4050, L503.6075, L506.0250, L503.6550, L506.1000, L501.5200 #### [facility] [address] [place], [address] Basophils/100 WBC (Bld) 0.7 % Normal 0-1 [facility] Comment on above: Order Comment: Order Date: 09/16/23 Order Info: 0184-1 - CBCD Performed By: #### L 503.0105, L501.9520, L503.6150, L100.0100, L500.4100, L500.4050, L503.6075, L506.0250, L503.6550, L506.1000, L501.5200 #### [facility] [address] [place], [address] Eosinophils/100 WBC (Bld) 3.5 % Normal 0-5 [facility] Comment on above: Order Comment: Order Date: 09/16/23 Order Info: 0184-1 - CBCD Performed By: #### L 503.0105, L501.9520, L503.6150, L100.0100, L500.4100, L500.4050, L503.6075, L506.0250, L503.6550, L506.1000, L501.5200 #### [facility] [address] [place], [place], [id number] (688) Erythrocyte distribution width (RBC) [Ratio] 13.7 % Normal 11.6-14.6 [facility] Comment on above: Order Comment: Order Date: 09/16/23 Order Info: 0184- - CBCD Performed By: #### L 503.0105, L501.9520, L503.6150, L100.0100, L500.4100, L500.4050, L503.6075, L506.0250, L503.6550, L506.1000, L501.5200 #### [facility] [address] [place], [address] (194) Hematocrit (Bld) [Volume fraction] 34.0 % Low 37-47 [facility] Comment on above: Order Comment: Order Date: 09/16/23 Order Info: 0184-1 - CBCD Performed By: #### L 503.0105, L501.9520, L503.6150, L100.0100, L500.4100, L500.4050, L503.6075, L506.0250, L503.6550, L506.1000, L501.5200 #### [facility] [address] [place], [place], [id number] (590) Hemoglobin (Bld) [Mass/Vol] 11.0 g/dL Low 12.0-15.0 [facility] Comment on above: Order Comment: Order Date: 09/16/23 Order Info: 0184-1 - CBCD Performed By: #### L 503.0105, L501.9520, L503.6150, L100.0100, L500.4100, L500.4050, L503.6075, L506.0250, L503.6550, L506.1000, L501.5200 #### [facility] [address] [place], [address] IG% 0.400 Normal 0.0-0.9 [facility] Comment on above: Order Comment: Order Date: 09/16/23 Order Info: 0184-1 - CBCD Result Comment: IG% - Immature Granulocytes (promyelocytes, myelocytes and metamyelocytes) > 1% indicates that a LEFT SHIFT is Present. Performed By: #### L 503.0105, L501.9520, L503.6150, L100.0100, L500.4100, L500.4050, L503.6075, L506.0250, L503.6550, L506.1000, L501.5200 #### [facility] [address] [place], [address] Lymphocytes/100 WBC (Bld) 15.4 % Low 19-41 [facility] Comment on above: Order Comment: Order Date: 09/16/23 Order Info: 0184-1 - CBCD Performed By: #### L 503.0105, L501.9520, L503.6150, L100.0100, L500.4100, L500.4050, L503.6075, L506.0250, L503.6550, L506.1000, L501.5200 #### [facility] [address] [place], [address] MCH (RBC) [Entitic mass] 31.3 pg Normal 27.0-32.0 [facility] Comment on above: Order Comment: Order Date: 09/16/23 Order Info: 0184-1 - CBCD Performed By: #### L 503.0105, L501.9520, L503.6150, L100.0100, L500.4100, L500.4050, L503.6075, L506.0250, L503.6550, L506.1000, L501.5200 #### [facility] [address] [place], [address] MCHC (RBC) [Mass/Vol] 32.4 g/dL Normal 32-36 [facility] Comment on above: Order Comment: Order Date: 09/16/23 Order Info: 0184-1 - CBCD Performed By: #### L 503.0105, L501.9520, L503.6150, L100.0100, L500.4100, L500.4050, L503.6075, L506.0250, L503.6550, L506.1000, L501.5200 #### [facility] [address] [place], [address] MCV (RBC) [Entitic vol] 96.6 fL Normal 81-[address] [facility] Comment on above: Order Comment: Order Date: 09/16/23 Order Info: 0184- - CBCD Performed By: #### L 503.0105, L501.9520, L503.6150, L100.0100, L500.4100, L500.4050, L503.6075, L506.0250, L503.6550, L506.1000, L501.5200 #### [facility] [address] [place], [address] Monocytes/100 WBC (Bld) 8.5 % Normal 0-[address] [facility] Comment on above: Order Comment: Order Date: 09/16/23 Order Info: 0184-1 - CBCD Performed By: #### L 503.0105, L501.9520, L503.6150, L100.0100, L500.4100, L500.4050, L503.6075, L506.0250, L503.6550, L506.1000, L501.5200 #### [facility] [address] [place], [address] Neutrophils/100 WBC (Bld) 71.5 % High 47-70 [facility] Comment on above: Order Comment: Order Date: 09/16/23 Order Info: 0184-1 - CBCD Performed By: #### L 503.0105, L501.9520, L503.6150, L100.0100, L500.4100, L500.4050, L503.6075, L506.0250, L503.6550, L506.1000, L501.5200 #### [facility] [address] [place], [place], [phone] (252) Nucleated RBC (Bld) [#/Vol] 0 10*3/uL Normal 0-5 [facility] Comment on above: Order Comment: Order Date: 09/16/23 Order Info: 0184-1 - CBCD Performed By: #### L 503.0105, L501.9520, L503.6150, L100.0100, L500.4100, L500.4050, L503.6075, L506.0250, L503.6550, L506.1000, L501.5200 #### [facility] [address] [place], [place], [id number] (211) Platelet mean volume (Bld) [Entitic vol] 10.5 fL Normal 6.2-12.0 [facility] Comment on above: Order Comment: Order Date: 09/16/23 Order Info: 0184-1 - CBCD Performed By: #### L 503.0105, L501.9520, L503.6150, L100.0100, L500.4100, L500.4050, L503.6075, L506.0250, L503.6550, L506.1000, L501.5200 #### [facility] [address] [place], [address] Platelets (Bld) [#/Vol] 305 10*3/uL Normal 150-450 [facility] Comment on above: Order Comment: Order Date: 09/16/23 Order Info: 0184-1 - CBCD Performed By: #### L 503.0105, L501.9520, L503.6150, L100.0100, L500.4100, L500.4050, L503.6075, L506.0250, L503.6550, L506.1000, L501.5200 #### [facility] [address] [place], [address] RBC (Bld) [#/Vol] 3.52 10*6/uL Low 4.2-5.4 [facility] Comment on above: Order Comment: Order Date: 09/16/23 Order Info: 0184-1 - CBCD Performed By: #### L 503.0105, L501.9520, L503.6150, L100.0100, L500.4100, L500.4050, L503.6075, L506.0250, L503.6550, L506.1000, L501.5200 #### [facility] [address] [place], [address] RDW SD 48.6 fl High 35.1-43.9 [facility] Comment on above: Order Comment: Order Date: 09/16/23 Order Info: 0184-1 - CBCD Performed By: #### L 503.0105, L501.9520, L503.6150, L100.0100, L500.4100, L500.4050, L503.6075, L506.0250, L503.6550, L506.1000, L501.5200 #### [facility] [address] [place], [address] WBC (Bld) [#/Vol] 6.8 10*3/uL Normal 4.4-11.0 [facility] Comment on above: Order Comment: Order Date: 09/16/23 Order Info: 0184-1 - CBCD Performed By: #### L 503.0105, L501.9520, L503.6150, L100.0100, L500.4100, L500.4050, L503.6075, L506.0250, L503.6550, L506.1000, L501.5200 #### [facility] [address] [place], [place], [id number] Comprehensive Metabolic Prof ilon 01-04-2024 Albumin [Mass/Vol] 3.3 g/dL Normal 3.2-5.0 [facility] Comment on above: Order Comment: Order Date: 09/16/23 Order Info: 0786-1 - CMP Order Info: 75309-9 - LIPID Order Info: 83263-5 - MG Order Info: 3 - TSH Order Info: 2499-10 - TIBC Order Info: 2497-07 - FE Order Info: 2275-07 - SIMONE Order Info: 8 - FOLS elevated glucose N Performed By: #### L 503.0105, L501.9520, L503.6150, L100.0100, L500.4100, L500.4050, L503.6075, L506.0250, L503.6550, L506.1000, L501.5200 #### [facility] [address] [place], [place], [address] Albumin/Globulin [Mass ratio] 0.8 {ratio} Low 0.9-2.4 [facility] Comment on above: Order Comment: Order Date: 09/16/23 Order Info: 0786-1 - CMP Order Info: 12989-1 - LIPID Order Info: 63151-3 - MG Order Info: 3016-3 - TSH Order Info: 2500-7 - TIBC Order Info: 2498-4 - FE Order Info: 227-4 - SIMONE Order Info: 2283-8 - FOLS elevated glucose N Performed By: #### L 503.0105, L501.9520, L503.6150, L100.0100, L500.4100, L500.4050, L503.6075, L506.0250, L503.6550, L506.1000, L501.5200 #### [facility] [address] [place], [place], [address] ALK P 67 U/L Normal 45-117 [facility] Comment on above: Order Comment: Order Date: 09/16/23 Order Info: 785- - CMP Order Info: - LIPID Order Info: 81560-6 - MG Order Info: 3015-06 - TSH Order Info: 2499-10 - TIBC Order Info: 2497-07 - FE Order Info: 2275-07 - SIMONE Order Info: 2283-11 - FOLS elevated glucose N Performed By: #### L 503.0105, L501.9520, L503.6150, L100.0100, L500.4100, L500.4050, L503.6075, L506.0250, L503.6550, L506.1000, L501.5200 #### [facility] [address] [place], [place], [id number] ALT [Catalytic activity/Vol] 9 U/L Low 13-56 [facility] Comment on above: Order Comment: Order Date: 09/16/23 Order Info: 785-04 - CMP Order Info: - LIPID Order Info: 04984-7 - MG Order Info: 3015-06 - TSH Order Info: 2499-10 - TIBC Order Info: 2497-07 - FE Order Info: 2275-07 - SIMONE Order Info: 8 - FOLS elevated glucose N Performed By: #### L 503.0105, L501.9520, L503.6150, L100.0100, L500.4100, L500.4050, L503.6075, L506.0250, L503.6550, L506.1000, L501.5200 #### [facility] [address] [place], [address] AST [Catalytic activity/Vol] 12 U/L Low 15-37 [facility] Comment on above: Order Comment: Order Date: 09/16/23 Order Info: 0786-1 - CMP Order Info: 66350-1 - LIPID Order Info: 02930-5 - MG Order Info: 3015-3 - TSH Order Info: 2499-7 - TIBC Order Info: 2497-07 - FE Order Info: 2275-07 - SIMONE Order Info: 2288 - FOLS elevated glucose N Performed By: #### L 503.0105, L501.9520, L503.6150, L100.0100, L500.4100, L500.4050, L503.6075, L506.0250, L503.6550, L506.1000, L501.5200 #### [facility] [address] [place], [address] Bilirubin [Mass/Vol] 0.50 mg/dL Normal 0.20-1.00 [facility] Comment on above: Order Comment: Order Date: 09/16/23 Order Info: 07-1 - CMP Order Info: 29839-2 - LIPID Order Info: 74580-4 - MG Order Info: 3 - TSH Order Info: 2499-10 - TIBC Order Info: 2497-07 - FE Order Info: 2275-07 - SIMONE Order Info: 8 - FOLS elevated glucose N Result Comment: For patients on eltrombopag therapy, use of Dimension [place] TBIL is not recommended. Performed By: #### L 503.0105, L501.9520, L503.6150, L100.0100, L500.4100, L500.4050, L503.6075, L506.0250, L503.6550, L506.1000, L501.5200 #### [facility] [address] [place], [place], [id number] BUN/CRE 10.6 RATIO Normal 10-20 [facility] Comment on above: Order Comment: Order Date: 09/16/23 Order Info: 07-1 - CMP Order Info: 80905-8 - LIPID Order Info: 58713-9 - MG Order Info: 3 - TSH Order Info: 2499-10 - TIBC Order Info: 2497-07 - FE Order Info: 2275-07 - SIMONE Order Info: 2283-11 - FOLS elevated glucose N Performed By: #### L 503.0105, L501.9520, L503.6150, L100.0100, L500.4100, L500.4050, L503.6075, L506.0250, L503.6550, L506.1000, L501.5200 #### [facility] [address] [place], [place], [address] CA,Total 9.0 mg/dL Normal 8.5-10.1 [facility] Comment on above: Order Comment: Order Date: 09/16/23 Order Info: 07 - CMP Order Info: - LIPID Order Info: 58469-0 - MG Order Info: 3015-06 - TSH Order Info: 2499-10 - TIBC Order Info: 2497-07 - FE Order Info: 2275-07 - SIMONE Order Info: 2283-11 - FOLS elevated glucose N Performed By: #### L 503.0105, L501.9520, L503.6150, L100.0100, L500.4100, L500.4050, L503.6075, L506.0250, L503.6550, L506.1000, L501.5200 #### [facility] [address] [place], [place], [address] Chloride [Moles/Vol] 104 mmol/L Normal 98-107 [facility] Comment on above: Order Comment: Order Date: 09/16/23 Order Info: 07-1 - CMP Order Info: 76379-8 - LIPID Order Info: 92615-5 - MG Order Info: 3 - TSH Order Info: 7 - TIBC Order Info: 2497-07 - FE Order Info: 2275-07 - SIMONE Order Info: 8 - FOLS elevated glucose N Performed By: #### L 503.0105, L501.9520, L503.6150, L100.0100, L500.4100, L500.4050, L503.6075, L506.0250, L503.6550, L506.1000, L501.5200 #### [facility] [address] [place], [place], [address] CO2 [Moles/Vol] 25.0 mmol/L Normal 21.0-32.0 [facility] Comment on above: Order Comment: Order Date: 09/16/23 Order Info: 0786- - CMP Order Info: 99642-5 - LIPID Order Info: 84524-8 - MG Order Info: 3 - TSH Order Info: 2499-10 - TIBC Order Info: 2497-07 - FE Order Info: 2275-07 - SIMONE Order Info: 8 - FOLS elevated glucose N Performed By: #### L 503.0105, L501.9520, L503.6150, L100.0100, L500.4100, L500.4050, L503.6075, L506.0250, L503.6550, L506.1000, L501.5200 #### [facility] [address] [place], [place], [address] Creatinine [Mass/Vol] 0.94 mg/dL Normal 0.55-1.02 [facility] Comment on above: Order Comment: Order Date: 09/16/23 Order Info: 07 - CMP Order Info: 64395-6 - LIPID Order Info: 93028-0 - MG Order Info: 3 - TSH Order Info: 7 - TIBC Order Info: 2497-07 - FE Order Info: 2275-07 - SIMONE Order Info: 8 - FOLS elevated glucose N Result Comment: The validity of the calculated GFR GFRAA in patients over 70 years has not been determined. Clinical correlation is essential. Performed By: #### L 503.0105, L501.9520, L503.6150, L100.0100, L500.4100, L500.4050, L503.6075, L506.0250, L503.6550, L506.1000, L501.5200 #### [facility] [address] [place], [place], [address] EST GFR - AA 76 mL/min Normal >60 [facility] Comment on above: Order Comment: Order Date: 09/16/23 Order Info: 785-1 - CMP Order Info: 18006-6 - LIPID Order Info: 15714-5 - MG Order Info: 3015-3 - TSH Order Info: 7 - TIBC Order Info: 2497-07 - FE Order Info: 2275-07 - SIMONE Order Info: 228-8 - FOLS elevated glucose N Result Comment: Afri can [place] GFR Calc Performed By: #### L 503.0105, L501.9520, L503.6150, L100.0100, L500.4100, L500.4050, L503.6075, L506.0250, L503.6550, L506.1000, L501.5200 #### [facility] [address] [place], [place], [id number] GAP 6 Normal 5-15 [facility] Comment on above: Order Comment: Order Date: 09/16/23 Order Info: 785- - CMP Order Info: 57993-4 - LIPID Order Info: 48174-0 - MG Order Info: 3 - TSH Order Info: 7 - TIBC Order Info: 2497-07 - FE Order Info: 4 - SIMONE Order Info: 228-8 - FOLS elevated glucose N Performed By: #### L 503.0105, L501.9520, L503.6150, L100.0100, L500.4100, L500.4050, L503.6075, L506.0250, L503.6550, L506.1000, L501.5200 #### [facility] [address] [place], [place], [address] GFR/1.73 sq M.predicted among non-blacks MDRD (S/P/Bld) [Vol rate/Area] 63 mL/min/{1.73_m2} Normal >60 [facility] Comment on above: Order Comment: Order Date: 09/16/23 Order Info: 0786-1 - CMP Order Info: 26367-3 - LIPID Order Info: 74689-4 - MG Order Info: 6-3 - TSH Order Info: 7 - TIBC Order Info: 2497-07 - FE Order Info: 2275-07 - SIMONE Order Info: 8 - FOLS elevated glucose N Result Comment: Non- GFR Calc Performed By: #### L 503.0105, L501.9520, L503.6150, L100.0100, L500.4100, L500.4050, L503.6075, L506.0250, L503.6550, L506.1000, L501.5200 #### [facility] [address] [place], [place], [phone] ([address]) Globulin (S) [Mass/Vol] 3.9 g/dL Normal 2.2-4.[address] [facility] Comment on above: Order Comment: Order Date: 09/16/23 Order Info: 0786-1 - CMP Order Info: 02889-5 - LIPID Order Info: 72500-8 - MG Order Info: 3 - TSH Order Info: 2499-10 - TIBC Order Info: 2497-07 - FE Order Info: 2275-07 - SIMONE Order Info: 8 - FOLS elevated glucose N Performed By: #### L 503.0105, L501.9520, L503.6150, L100.0100, L500.4100, L500.4050, L503.6075, L506.0250, L503.6550, L506.1000, L501.5200 #### [facility] [address] [place], [address] Glucose [Mass/Vol] 92 mg/dL Normal 74-106 [facility] Comment on above: Order Comment: Order Date: 09/16/23 Order Info: 0786-1 - CMP Order Info: 77446-0 - LIPID Order Info: 02803-2 - MG Order Info: 3 - TSH Order Info: 2499-10 - TIBC Order Info: 2497-07 - FE Order Info: 2275-07 - SIMONE Order Info: 2283-11 - FOLS elevated glucose N Performed By: #### L 503.0105, L501.9520, L503.6150, L100.0100, L500.4100, L500.4050, L503.6075, L506.0250, L503.6550, L506.1000, L501.5200 #### [facility] [address] [place], [address] Potassium [Moles/Vol] 4.4 mmol/L Normal 3.5-5.1 [facility] Comment on above: Order Comment: Order Date: 09/16/23 Order Info: 0786 - CMP Order Info: 54816-0 - LIPID Order Info: 78799-8 - MG Order Info: 3015-06 - TSH Order Info: 2499-10 - TIBC Order Info: 2497-07 - FE Order Info: 2275-07 - SIMONE Order Info: 2283-11 - FOLS elevated glucose N Performed By: #### L 503.0105, L501.9520, L503.6150, L100.0100, L500.4100, L500.4050, L503.6075, L506.0250, L503.6550, L506.1000, L501.5200 #### [facility] [address] [place], [address] Sodium [Moles/Vol] 135 mmol/L Low 136-145 [facility] Comment on above: Order Comment: Order Date: 09/16/23 Order Info: 0786-1 - CMP Order Info: 08746-8 - LIPID Order Info: 59723-7 - MG Order Info: 3 - TSH Order Info: 7 - TIBC Order Info: 2497-07 - FE Order Info: 2275-07 - SIMONE Order Info: 8 - FOLS elevated glucose N Performed By: #### L 503.0105, L501.9520, L503.6150, L100.0100, L500.4100, L500.4050, L503.6075, L506.0250, L503.6550, L506.1000, L501.5200 #### [facility] [address] [place], [place], [id number] T PROT 7.2 g/dL Normal 6.4-8.2 [facility] Comment on above: Order Comment: Order Date: 09/16/23 Order Info: 07 - CMP Order Info: - LIPID Order Info: 05302-5 - MG Order Info: 3015-06 - TSH Order Info: 2499-10 - TIBC Order Info: 2497-07 - FE Order Info: 2275-07 - SIMONE Order Info: 2283-11 - FOLS elevated glucose N Performed By: #### L 503.0105, L501.9520, L503.6150, L100.0100, L500.4100, L500.4050, L503.6075, L506.0250, L503.6550, L506.1000, L501.5200 #### [facility] [address] [place], [place], [address] Urea nitrogen [Mass/Vol] 10 mg/dL Normal 7-18 [facility] Comment on above: Order Comment: Order Date: 09/16/23 Order Info: 785-04 - CMP Order Info: 84121-8 - LIPID Order Info: 65346-7 - MG Order Info: 3 - TSH Order Info: 2499-10 - TIBC Order Info: 2497-07 - FE Order Info: 2275-07 - SIMONE Order Info: 2283-11 - FOLS elevated glucose N Performed By: #### L 503.0105, L501.9520, L503.6150, L100.0100, L500.4100, L500.4050, L503.6075, L506.0250, L503.6550, L506.1000, L501.5200 #### [facility] [address] [place], [address] Ferritinon 01-04-2024 Ferritin [Mass/Vol] 147 ng/mL Normal 8-252 [facility] Comment on above: Order Comment: Order Date: 05/16/24 Order Info: 0184-1 - CBCD Performed By: #### L 506.1000, L100.0100, L500.4050 #### [facility] [address] [place], [address] Folates, (Folic Acid)on FOLATES 7.60 ng/mL Normal 3.1-55.4 [facility] Comment on above: Order Comment: Order Date: 05/16/24 Order Info: 0184- - CBCD Performed By: #### L 506.1000, L100.0100, L500.4050 #### [facility] [address] [place], [address] Hemoglobin A1con 01-04-2024 HbA1c (Bld) [Mass fraction] 5.2 % Normal 3.8-5.6 [facility] Comment on above: Order Comment: Order Date: 01/21/23 Order Info: 4548-4 - A1C Comments: elevated glucose Result Comment: Norm al < 5.7 % Prediabetic 5.7 - 6.4 % Diabetic >or= 6.5 % Please note range changes. Performed By: #### L 501.9985 #### [facility] [address] [place], [address] Ironon 01-04-2024 Iron [Mass/Vol] 76 ug/dL Normal 50-170 [facility] Comment on above: Order Comment: Order Date: 05/16/24 Order Info: 0184- - CBCD Performed By: #### L 506.1000, L100.0100, L500.4050 #### [facility] [address] [place], [address] Iron Binding Capacity,Totalo n 01-04-2024 TIBC 264 ug/dL Normal 250-450 [facility] Comment on above: Order Comment: Order Date: 05/16/24 Order Info: 0184-1 - CBCD Performed By: #### L 506.1000, L100.0100, L500.4050 #### [facility] [address] [place], [address] Lipid Profileon 01-04-2024 Cholesterol [Mass/Vol] 152 mg/dL Normal 200 [facility] Comment on above: Order Comment: Order Date: 09/16/23 Order Info: 0786- - CMP Order Info: 84486-2 - LIPID Order Info: 47551-0 - MG Order Info: 3 - TSH Order Info: 2499-10 - TIBC Order Info: 2497-07 Order Info: 2275-07 - SIMONE Order Info: 2283-11 - FOLS elevated glucose N Result Comment: <200 mg/dL Desirable 200-240 mg/dL Borderline >240 mg/dL High Risk Performed By: #### L 503.0105, L501.9520, L503.6150, L100.0100, L500.4100, L500.4050, L503.6075, L506.0250, L503.6550, L506.1000, L501.5200 #### [facility] [address] [place], [address] Cholesterol in HDL [Mass/Vol] 57 mg/dL Normal [facility] Comment on above: Order Comment: Order Date: 09/16/23 Order Info: 0786- - CMP Order Info: 67782-3 - LIPID Order Info: 44167-0 - MG Order Info: 3015-3 - TSH Order Info: 2499-10 - TIBC Order Info: 2497-07 - FE Order Info: 2275-07 - ISMONE Order Info: 2283-11 - FOLS elevated glucose N Result Comment: The drugs N-Acetylcysteine and Metamizole may falsely depress this assay. Reference Range HDL <40 mg/dL Low HDL Cholesterol HDL >or= 60 mg/dL High HDL Cholesterol Performed By: #### L 503.0105, L501.9520, L503.6150, L100.0100, L500.4100, L500.4050, L503.6075, L506.0250, L503.6550, L506.1000, L501.5200 #### [facility] [address] [place], [address] Cholesterol in LDL [Mass/Vol] 86 mg/dL Normal 0-130 [facility] Comment on above: Order Comment: Order Date: 09/16/23 Order Info: 07- - CMP Order Info: - LIPID Order Info: 47503-6 - MG Order Info: 3015-06 - TSH Order Info: 2499-10 - TIBC Order Info: 2497-07 Order Info: 2275-07 - SIMONE Order Info: 2283-11 - FOLS elevated glucose N Performed By: #### L 503.0105, L501.9520, L503.6150, L100.0100, L500.4100, L500.4050, L503.6075, L506.0250, L503.6550, L506.1000, L501.5200 #### [facility] [address] [place], [address] Cholesterol in VLDL [Mass/Vol] 9 mg/dL Normal 5-40 [facility] Comment on above: Order Comment: Order Date: 09/16/23 Order Info: 785-04 - CMP Order Info: - LIPID Order Info: 29760-0 - MG Order Info: 3015-06 - TSH Order Info: 2499-10 - TIBC Order Info: 2497-07 Order Info: 2275-07 - SIMONE Order Info: 2283-11 - FOLS elevated glucose N Performed By: #### L 503.0105, L501.9520, L503.6150, L100.0100, L500.4100, L500.4050, L503.6075, L506.0250, L503.6550, L506.1000, L501.5200 #### [facility] [address] [place], [address] Triglyceride [Mass/Vol] 46 mg/dL Normal [facility] Comment on above: Order Comment: Order Date: 09/16/23 Order Info: 0786-1 - CMP Order Info: 50445-1 - LIPID Order Info: 70846-9 - MG Order Info: 3016-3 - TSH Order Info: 2500-7 - TIBC Order Info: 2494 - FE Order Info: 2275-07 - SIMONE Order Info: 2283-11 - FOLS elevated glucose N Result Comment: The drugs N-Acetylcysteine and Metamizole may falsely depress this assay. Serum Triglycerides Reference Interval Normal <150 mg/dL Borderline high 150 - 199 mg/dL High 200 - 499 mg/dL Very High > or = 500 mg/dL Performed By: #### L 503.0105, L501.9520, L503.6150, L100.0100, L500.4100, L500.4050, L503.6075, L506.0250, L503.6550, L506.1000, L501.5200 #### [facility] [address] [place], [address] Magnesiumon 01-04-2024 Magnesium [Mass/Vol] 2.5 mg/dL Normal 1.6-2.6 [facility] Comment on above: Order Comment: Order Date: 05/16/24 Order Info: 0184-1 - CBCD Performed By: #### L 506.1000, L100.0100, L500.4050 #### [facility] [address] [place], [address] Thyroid Stim Hormone (TSH)on 01-04-2024 TSH 1.440 uIU/mL Normal 0.358-3.740 [facility] Comment on above: Order Comment: Order Date: 05/16/24 Order Info: 0184-1 - CBCD Performed By: #### L 506.1000, L100.0100, L500.4050 #### [facility] [address] [place], [place], [address] Urinalysis, Completeon 01-03 RBC 0-5 SEEN Normal 0-5 [facility] Comment on above: Order Comment: Order Date: 05/16/24 Order Info: 0184-1 - CBCD Performed By: #### L 506.1000, L100.0100, L500.4050 #### [facility] [address] [place], [address] WBC 0-5 SEEN Normal 0-5 [facility] Comment on above: Order Comment: Order Date: 05/16/24 Order Info: 0184-1 - CBCD Performed By: #### L 506.1000, L100.0100, L500.4050 #### [facility] [address] [place], [address] BACTERIA 1+ /hpf Normal None Seen [facility] Comment on above: Order Comment: Order Date: 05/16/24 Order Info: 0184-1 - CBCD Performed By: #### L 506.1000, L100.0100, L500.4050 #### [facility] [address] [place], [address] EPI,SQUAMOUS 0-5 SEEN Normal 5-10 [facility] Comment on above: Order Comment: Order Date: 05/16/24 Order Info: 0184-1 - CBCD Performed By: #### L 506.1000, L100.0100, L500.4050 #### [facility] [address] [place], [address] Mucus Ql (Urine sed) 0 SEEN Normal [facility] Comment on above: Order Comment: Order Date: 05/16/24 Order Info: 0184-1 - CBCD Performed By: #### L 506.1000, L100.0100, L500.4050 #### [facility] [address] [place], [address] Vitamin B12on 01-04-2024 Cobalamin (Vitamin B12) [Mass/Vol] 308 pg/mL Normal 211-911 [facility] Comment on above: Order Comment: Order Date: 09/16/23 Order Info: 2132-9 - B12 Order Info: 26451-8 - VITD25 Performed By: #### L 503.0105, L501.9520, L503.6150, L100.0100, L500.4100, L500.4050, L503.6075, L506.0250, L503.6550, L506.1000, L501.5200 #### [facility] [address] [place], [address] Vitamin D,25 Hydroxyon 01-03 Vitamin D 25-OH 60.7 ng/mL Normal [facility] Comment on above: Order Comment: Order Date: 09/16/23 Order Info: 2132-9 - B12 Order Info: 98672-6 - VITD25 Result Comment: Krysta min D 25(OH) Status Range Deficiency <20 ng/mL (50nmol/L) Insufficiency 20 - 30 ng/mL (50 - 75 nmol/L) Sufficiency 30 - 100 ng/mL (75 - 250 nmol/L) Toxicity >100 ng/mL (>250 nmol/L) Performed By: #### L 503.0105, L501.9520, L503.6150, L100.0100, L500.4100, L500.4050, L503.6075, L506.0250, L503.6550, L506.1000, L501.5200 #### [facility] [address] [place], [address] Dexa Bone Density Studyon Dexa Bone Density Study [facility] [address] [place] [address] Dexa Bone Density Study MR#: [id number] Acct: [id number] Name: MARIANNE JOYCE STACIE Rep #: [id number] : 1955 F 67 From: Bello currie MD PCP: Dr. Cristóbal Nielsen MD Status: REG CLI Study: Dexa Bone Density Study Date of Exam: 10/12/23 Exam# [id number] Ordering Dr: Cristóbal Nielsen MD -[id number] STUDY: DUAL ENERGY X-RAY ABSORPTIOMETRY / DXA REASON FOR EXAM: Female, 67 years old. M85.89 TECHNIQUE: Bone Mineral Density (BMD) measurements of lumbar spine and bilateral hips were obtained. COMPARISON: Comparison is made with prior study dated April 30, 2020. FINDINGS: Lumbar Spine (L1-L4): g/cm2 (0.816) / T-score (-1.8) / Z-score (0.2) Findings are suggestive of osteopenia with a moderate fracture risk. Left Femur Total: g/cm2 (0.854) / T-score (-0.7) / Z-score (0.8) Left Femoral Neck: g/cm2 (0.688) / T-score (-1.4) / Z-score (0.3) Right Femur Total: g/cm2 (0.880) / T-score (-0.5) / Z-score (1.0) Right Femoral Neck: g/cm2 (0.752) / T-score (-0.9) / Z-score (0.9) The T-Scores on the most recent prior examination were: Lumbar Spine (L1-L4): There has been worsening of bone density since the previous examination. Left Femur Total: which represents an improvement of 4.2%. Right Femur Total: which represents an improvement of 3.4%. BD/Dexa Bone Density Study IMPRESSION: The patient is considered osteopenic as outlined below according to World [employer] Organization (WHO) criteria with a moderate fracture risk. There has been improvement of bone density since the previous examination. Reference Information: The T-score is the number of standard deviations above or below the standard which is normal for young adults at their peak bone mineral density. The World Health Organization (WHO) interprets the T-scores as follows: Above -1 Normal bone density Between -1 and -2.5 Osteopenia Equal to / or below -2.5 Osteoporosis As a practical clinical guideline, osteopenia may be graded as follows: Mild -1 through -1.5 Moderate -1.6 through -2.0 Severe -2.1 through -2.4 The Z-score is the number of standard deviations above or below age-matched controls. A Z-score of less than -1.5 would be considered abnormal. References: 1. NIH Osteoporosis and Related Bone Diseases www osteo.org 2. International Society for Clinical Densitometry www iscd.org 3. [employer] www nof.org Electronically Signed: Bello Martinez MD at 10:19 EDT , CC: Dr. Cristóbal Nielsen MD Electronic Components Assembler: Signed Normal [facility] SCRN MAMM (CAD)W/MARGARITA BILATo n 10-12-2023 SCRN MAMM (CAD)W/MARGARITA BILAT [facility] Imaging Services [address] [place] [address] SCRN MAMM (CAD)W/MARGARITA BILAT MR#: [id number] Acct: [id number] Name: MARIANNE JOYCE STACIE Rep #: [id number] : [id number] F [id number] From: Bello currie MD PCP: Dr. Cristóbal Nielsen MD Status: [facility] Study: SCRN MAMM (CAD)W/MARGARITA BILAT Date of Exam: 12/27 Exam# [id number] Ordering Dr: Cristóbal Nielsen MD -[id number] MAMMOGRAPHY - BILATERAL SCREENING REASON FOR EXAM: Female, 67 years old. Routine annual screening examination. PERTINENT HISTORY: Non-contributory. TECHNIQUE: Digital bilateral breast margarita (3D mammographic acquisition) in the CC and MLO projections. 2-D mediolateral oblique (MLO) and craniocaudad (CC) views of both breasts were obtained. CAD: Full Field Digital Mammography with Computer Added Detection was performed. COMPARISON: Comparison is made with prior study dated June 01, 2022 and April 30, 2020. FINDINGS: Breast Composition: The breasts are heterogeneously dense, which may obscure small masses. There are no dominant masses or suspicious calcifications. Stable small benign-appearing bilateral axillary lymph nodes. Stable calcified nodule in the anterior upper lateral aspect of the right breast suggestive of a calcifying fibroadenoma. No other significant abnormalities are identified. There has been no significant change since the prior study. BI/SCRN MAMM (CAD)W/MARGARITA BILAT IMPRESSION: Stable bilateral screening mammogram. Yearly follow-up mammogram recommended. (A) ASSESSMENT CATEGORY: BIRADS Category 2: Benign. A letter regarding these results will be sent to the patient by the facility within 30 days. Approximately 10% of breast cancers are not detected by mammography. A normal mammogram should not delay biopsy of a clinically suspicious abnormality. [id number] Electronically Signed: Bello Martinez MD at 8:12 EDT , CC: Dr. Cristóbal Nielsen MD Electronic Components Assembler: Signed Normal [facility] Basophil percentageOrdered B y: Cristóbal Nielsen on 06-04-2023 Chloride [Moles/Vol] 102 mmol/L 98-107 [facility] Glucose [Mass/Vol] 90 mg/dL 74-106 [facility] Potassium [Moles/Vol] 4.5 mmol/L 3.5-5.1 [facility] Sodium [Moles/Vol] 131 mmol/L 136-145 [facility] Laboratory - Chemistry and C hemistry - challengeOrdered By: Cristóbal Nielsen on 06-04-2023 CO2 [Moles/Vol] 25.0 mmol/L 21.0-32.0 [facility] Urea nitrogen/Creatinine [Mass ratio] 18.3 mg/mg 10-20 [facility] No Panel InformationOrdered By: Cristóbal Nielsen on 06-04-2023 Estimated GFR (MDRD) Amer 77 mL/min >60 [facility] Comment on above: GFR Calc Estimated GFR (MDRD) Non-Af Amer 63 mL/min >60 [facility] Comment on above: Non- GFR Calc Serum or plasma calcium michelle urement (mass/volume)Ordered By: Cristóbal Nielsen on 06-04-2023 Calcium [Mass/Vol] 9.2 mg/dL 8.5-10.1 [facility] Serum or plasma creatinine m easurement (mass/volume)Ordered By: Cristóbal Nielsen on 06-04-2023 Creatinine [Mass/Vol] 0.93 mg/dL 0.55-1.02 [facility] Comment on above: The validity of the calculated GFR & GFRAA in patients over 70 years has not been determined. Clinical correlation is essential. Serum or plasma urea nitroge n measurement (mass/volume)Ordered By: Cristóbal Nielsen on 06-04-2023 Urea nitrogen [Mass/Vol] 17 mg/dL 7-18 [facility] Thin prep Papanicolaou smear with manual screeningOrdered By: Cristóbal Nielsen on 06-04-2023 Thin prep Papanicolaou smear with manual screening 4 5-15 [facility] Absolute lymphocyte countOrd ered By: Cristóbal Nielsen on 05-24-2023 Lymphocytes Auto (Unsp spec) [#/Vol] 1.69 10*3/uL 0.83-4.51 [facility] Automated lymphocyte count a s percentage of total leukocytesOrdered By: Cristóbal Nielsen on 05-24-2023 Lymphocytes/100 WBC Auto (Unsp spec) 14.9 % 19-41 [facility] Basophil percentageOrdered B y: Cristóbal Nielsen on 05-24-2023 Basophil percentage 0 SEEN /hpf 0-5 [facility] Basophils/100 WBC (Bld) 0.6 % 0-1 [facility] Bilirubin [Mass/Vol] 0.50 mg/dL 0.20-1.00 [facility] Comment on above: For patients on eltr ombopag therapy, use of Dimension [place] TBIL is not recommended. Chloride [Moles/Vol] 98 mmol/L 98-107 [facility] Eosinophils/100 WBC (Bld) 4.2 % 0-5 [facility] Glucose [Mass/Vol] 91 mg/dL 74-106 [facility] Hemoglobin (Bld) [Mass/Vol] 11.6 g/dL 12.0-15.0 [facility] Monocytes/100 WBC (Bld) 8.2 % 0-10 [facility] Neutrophils (Bld) [#/Vol] 8.1 10*3/uL 2.0-7.7 [facility] Neutrophils/100 WBC (Bld) 71.3 % 47-70 [facility] Potassium [Moles/Vol] 4.3 mmol/L 3.5-5.1 [facility] Protein [Mass/Vol] 7.7 g/dL 6.4-8.2 [facility] Sodium [Moles/Vol] 130 mmol/L 136-145 [facility] WBC (Bld) [#/Vol] 11.3 10*3/uL 4.4-11.0 [facility] Bilirubin Test strip Ql (U)O rdered By: Cristóbal Nielsen on 05-24-2023 Bilirubin Ql (U) Negative Negative [facility] Determination of erythrocyte mean corpuscular volume (MCV)Ordered By: Cristóbal Nielsen on 05-24-2023 MCV (RBC) [Entitic vol] 97.0 fL 81-99 [facility] Erythrocyte distribution wid th ratioOrdered By: Cristóbal Nielsen on 05-24-2023 Erythrocyte distribution width (RBC) [Ratio] 13.1 % 11.6-14.6 [facility] Erythrocyte distribution wid th standard deviationOrdered By: Cristóbal Nielsen on 05-24-2023 Erythrocyte distribution width (RBC) [Entitic vol] 46.4 fL 35.1-43.9 [facility] Hematocrit Auto (Bld) [Volum e fraction]Ordered By: Cristóbal Nielsen on 05-24-2023 Hematocrit (Bld) [Volume fraction] 35.8 % 37-47 [facility] Immature granulocytes/100 WB C Auto (Bld)Ordered By: Cristóbal Nielsen on 05-24-2023 Immature granulocytes/100 WBC (Bld) 0.800 % 0.0-0.9 [facility] Comment on above: IG% - Immature Granu locytes (promyelocytes, myelocytes and metamyelocytes) > 1% indicates that a LEFT SHIFT is Present. Iron measurement (mass/mass) Ordered By: Cristóbal Nielsen on 05-24-2023 Iron (Unsp spec) [Mass/Mass] 59 ug/dL 50-170 [facility] Ketones Test strip Ql (U)Ord ered By: Cristóbal Nielsen on 05-24-2023 Ketones Ql (U) Negative Negative [facility] Laboratory - Chemistry and C hemistry - challengeOrdered By: Cristóbal Nielsen on 05-24-2023 Albumin/Globulin [Mass ratio] 0.8 {ratio} 0.9-2.4 [facility] ALP [Catalytic activity/Vol] 78 U/L 45-117 [facility] ALT [Catalytic activity/Vol] 25 U/L 13-56 [facility] CO2 [Moles/Vol] 24.0 mmol/L 21.0-32.0 [facility] Cobalamin (Vitamin B12) [Mass/Vol] 315 pg/mL 211-911 [facility] Ferritin [Mass/Vol] 228 ng/mL 8-252 [facility] Globulin (S) [Mass/Vol] 4.4 g/dL 2.2-4.2 [facility] Urea nitrogen/Creatinine [Mass ratio] 18.7 mg/mg 10-20 [facility] Laboratory - Hematology and Cell countsOrdered By: Cristóbal Nielsen on 05-24-2023 MCH (RBC) [Entitic mass] 31.4 pg 27.0-32.0 [facility] MCHC (RBC) [Mass/Vol] 32.4 g/dL 32-36 [facility] Nucleated RBC/100 WBC (Bld) [Ratio] 0 % 0-5 [facility] Platelet mean volume (Bld) [Entitic vol] 10.3 fL 6.2-12.0 [facility] Platelets (Bld) [#/Vol] 376 10*3/uL 150-450 [facility] Mucus LM Ql (Urine sed)Order ed By: Cristóbal Nielsen on 05-24-2023 Mucus Ql (Urine sed) 0 SEEN /hpf [facility] Nitrite Test strip Ql (U)Ord ered By: Cristóbal Nielsen on 05-24-2023 Nitrite Ql (U) Negative Negative [facility] No Panel InformationOrdered By: Cristóbal Nielsen on 05-24-2023 Urine RBC 0 SEEN /hpf 0-5 [facility] Estimated GFR (MDRD) Amer 85 mL/min >60 [facility] Comment on above: GFR Calc Estimated GFR (MDRD) Non-Af Amer 70 mL/min >60 [facility] Comment on above: Non- GFR Calc Folate 6.50 ng/mL 3.1-55.4 [facility] Total Iron Binding Capacity 246 ug/dL 250-450 [facility] Vitamin D 25-Hydroxy 53.5 ng/mL [facility] Comment on above: Vitamin D 25(OH) Sta tus Range Deficiency <20 ng/mL (50nmol/L) Insufficiency 20 - 30 ng/mL (50 - 75 nmol/L) Sufficiency 30 - 100 ng/mL (75 - 250 nmol/L) Toxicity >100 ng/mL (>250 nmol/L) Protein Test strip Ql (U)Ord ered By: Cristóbal Nielsen on 05-24-2023 Protein Ql (U) Negative Negative [facility] RBC Auto (Bld) [#/Vol]Ordere d By: Cristóbal Nielsen on 05-24-2023 RBC (Bld) [#/Vol] 3.69 10*6/uL 4.2-5.4 [facility] Serum or plasma calcium michelle urement (mass/volume)Ordered By: Cristóbal Nielsen on 05-24-2023 Calcium [Mass/Vol] 8.6 mg/dL 8.5-10.1 [facility] Serum or plasma creatinine m easurement (mass/volume)Ordered By: Cristóbal Nielsen on 05-24-2023 Creatinine [Mass/Vol] 0.86 mg/dL 0.55-1.02 [facility] Comment on above: The validity of the calculated GFR & GFRAA in patients over 70 years has not been determined. Clinical correlation is essential. Serum or plasma urea nitroge n measurement (mass/volume)Ordered By: Cristóbal Nielsen on 05-24-2023 Urea nitrogen [Mass/Vol] 16 mg/dL 7-18 [facility] Squamous epithelial cells de tection in urine sediment by light microscopyOrdered By: Cristóbal Nielsen on 05-24-2023 Epithelial cells.squamous LM Ql (Urine sed) 0 SEEN /hpf 5-10 [facility] Thin prep Papanicolaou smear with manual screeningOrdered By: Cristóbal Nielsen on 05-24-2023 Thin prep Papanicolaou smear with manual screening 3.3 g/dL 3.2-5.0 [facility] Thin prep Papanicolaou smear with manual screening 17 U/L 15-37 [facility] Thin prep Papanicolaou smear with manual screening 8 5-15 [facility] Urine blood detectionOrdered By: Cristóbal Nielsen on 05-24-2023 RBC Ql (U) Negative Negative [facility] Urine clarityOrdered By: Zachary Nielsen on 05-24-2023 Clarity (U) Clear Clear [facility] Urine color determinationOrd ered By: Cristóbal Nielsen on 05-24-2023 Color (U) Yellow Yellow [facility] Urine glucose detectionOrder ed By: Cristóbal Nielsen on 05-24-2023 Glucose Ql (U) Normal mg/dl Normal [facility] Urine leukocyte esterase det ection by dipstickOrdered By: Cristóbal Nielsen on 05-24-2023 Leukocyte esterase Test strip Ql (U) Negative Negative [facility] Urine pHOrdered By: Cristóbal dee on 05-24-2023 pH (U) 6.5 [pH] 5.0 - 8.0 [facility] Urine sediment bacteria coun t by microscopy (number/high power field)Ordered By: Cristóbal Nielsen on 05-24-2023 Bacteria LM.HPF (Urine sed) [#/Area] 0 /[HPF] None Seen [facility] Urine specific gravity measu rementOrdered By: Cristóbal Nielsen on 05-24-2023 Specific gravity (U) [Rel density] 1.010 1.002-1.030 [facility] Urine urobilinogen measureme ntOrdered By: Cristóbal Nielsen on 05-24-2023 Urobilinogen Ql (U) Normal mg/dl Normal [facility] Laboratory - Microbiology an d Antimicrobial susceptibilityon 05-17-2023 S. pyogenes Ag IA Ql (Unsp spec) Negative [facility] No Panel Informationon 05-17 Influenza Types A,B Rapid (Clinic) Negative [facility] POC SARS CoV-2 Antigen Negative [facility] Absolute lymphocyte countOrd ered By: Cristóbal Nielsen on 01-21-2023 Lymphocytes Auto (Unsp spec) [#/Vol] 1.53 10*3/uL 0.83-4.51 [facility] Basophil percentageOrdered B y: Cristóbal Nielsen on 01-21-2023 Basophil percentage 0 SEEN /hpf 0-5 [facility] Basophils/100 WBC (Bld) 0.6 % 0-[address] [facility] Bilirubin [Mass/Vol] 0.30 mg/dL 0.20-1.00 [facility] Comment on above: For patients on eltr ombopag therapy, use of Dimension [place] TBIL is not recommended. Chloride [Moles/Vol] 104 mmol/L 98-107 [facility] Cholesterol [Mass/Vol] 147 mg/dL <200 [facility] Comment on above: <200 mg/dL Desirable 200-240 mg/dL Borderline >240 mg/dL High Risk Eosinophils/100 WBC (Bld) 4.5 % 0-5 [facility] Glucose [Mass/Vol] 102 mg/dL 74-106 [facility] Comment on above: Fasting Glucose resu lt from 100 to 125 mg/dL suggests IMPAIRED HOMEOSTASIS per A.D.A. criteria. Neutrophils (Bld) [#/Vol] 4.2 10*3/uL 2.0-7.7 [facility] Neutrophils/100 WBC (Bld) 62.9 % 47-70 [facility] Potassium [Moles/Vol] 4.0 mmol/L 3.5-5.1 [facility] Protein [Mass/Vol] 7.2 g/dL 6.4-8.2 [facility] Sodium [Moles/Vol] 136 mmol/L 136-145 [facility] Triglyceride [Mass/Vol] 70 mg/dL <199 [facility] Comment on above: The drugs N-Acetylcy steine and Metamizole may falsely depress this assay.Serum Triglycerides Reference Interval Normal <150 mg/dL Borderline high 150 - 199 mg/dL High 200 - 499 mg/dL Very High > or = 500 mg/dL WBC (Bld) [#/Vol] 6.7 10*3/uL 4.4-11.0 [facility] Bilirubin Test strip Ql (U)O rdered By: Cristóbal Nielsen on 01-21-2023 Bilirubin Ql (U) Negative Negative [facility] Blood erythrocytes count (nu mber/volume)Ordered By: Cristóbal Nielsen on 01-21-2023 RBC (Bld) [#/Vol] 3.47 10*6/uL 4.2-5.4 [facility] Blood hemoglobin measurement (mass/volume)Ordered By: Cristóbal Nielsen on 01-21-2023 Hemoglobin (Bld) [Mass/Vol] 11.2 g/dL 12.0-15.0 [facility] Blood lymphocytes/100 leukoc ytesOrdered By: Cristóbal Nielsen on 01-21-2023 Lymphocytes/100 WBC (Bld) 22.9 % 19-41 [facility] Blood monocytes/100 leukocyt esOrdered By: Cristóbal Nielsen on 01-21-2023 Monocytes/100 WBC (Bld) 8.7 % 0-[address] [facility] Blood platelet mean volumeOr dered By: Cristóbal Nielsen on 01-21-2023 Platelet mean volume (Bld) [Entitic vol] 10.4 fL 6.2-12.0 [facility] Determination of erythrocyte mean corpuscular volume (MCV)Ordered By: Cristóbal Nielsen on 01-21-2023 MCV (RBC) [Entitic vol] 99.1 fL 81-99 [facility] Hematocrit Auto (Bld) [Volum e fraction]Ordered By: Cristóbal Nielsen on 01-21-2023 Hematocrit (Bld) [Volume fraction] 34.4 % 37-47 [facility] Ketones Test strip Ql (U)Ord ered By: Cristóbal Nielsen on 01-21-2023 Ketones Ql (U) Negative Negative [facility] Laboratory - Chemistry and C hemistry - challengeOrdered By: Cristóbal Nielsen on 01-21-2023 ALP [Catalytic activity/Vol] 68 U/L 45-117 [facility] ALT [Catalytic activity/Vol] 19 U/L 13-56 [facility] CO2 [Moles/Vol] 25.0 mmol/L 21.0-32.0 [facility] Globulin (S) [Mass/Vol] 4.0 g/dL 2.2-4.2 [facility] Urea nitrogen/Creatinine [Mass ratio] 19.0 mg/mg 10-20 [facility] Laboratory - Hematology and Cell countsOrdered By: Cristóbal Nielsen on 01-21-2023 Erythrocyte distribution width (RBC) [Entitic vol] 47.1 fL 35.1-43.9 [facility] Erythrocyte distribution width (RBC) [Ratio] 13.1 % 11.6-14.6 [facility] Immature granulocytes/100 WBC (Bld) 0.400 % 0.0-0.9 [facility] Comment on above: IG% - Immature Granu locytes (promyelocytes, myelocytes and metamyelocytes) > 1% indicates that a LEFT SHIFT is Present. MCH (RBC) [Entitic mass] 32.3 pg 27.0-32.0 [facility] Nucleated RBC/100 WBC (Bld) [Ratio] 0 % 0-5 [facility] MCHC Auto (RBC) [Mass/Vol]Or dered By: Cristóbal Nielsen on 01-21-2023 MCHC (RBC) [Mass/Vol] 32.6 g/dL 32-36 [facility] Mucus LM Ql (Urine sed)Order ed By: Cristóbal Nielsen on 01-21-2023 Mucus Ql (Urine sed) RARE /hpf [facility] Nitrite Test strip Ql (U)Ord ered By: Cristóbal Nielsen on 01-21-2023 Nitrite Ql (U) Negative Negative [facility] No Panel InformationOrdered By: Cristóbal Nielsen on 01-21-2023 Estimated GFR (MDRD) Amer 86 mL/min >60 [facility] Comment on above: GFR Calc Estimated GFR (MDRD) Non-Af Amer 71 mL/min >60 [facility] Comment on above: Non- GFR Calc Vitamin D 25-Hydroxy 30.0 ng/mL [facility] Comment on above: Vitamin D 25(OH) Sta tus Range Deficiency <20 ng/mL (50nmol/L) Insufficiency 20 - 30 ng/mL (50 - 75 nmol/L) Sufficiency 30 - 100 ng/mL (75 - 250 nmol/L) Toxicity >100 ng/mL (>250 nmol/L) Platelets bldOrdered By: Zachary Nielsen on 01-21-2023 Platelets (Bld) [#/Vol] 325 10*3/uL 150-450 [facility] Protein Test strip Ql (U)Ord ered By: Cristóbal Nielsen on 01-21-2023 Protein Ql (U) Negative Negative [facility] Serum or plasma albumin michelle urement (mass/volume)Ordered By: Cristóbal Nielsen on 01-21-2023 Albumin [Mass/Vol] 3.2 g/dL 3.2-5.0 [facility] Serum or plasma albumin/glob ulin mass ratioOrdered By: Cristóbal Nielsen on 01-21-2023 Albumin/Globulin [Mass ratio] 0.8 {ratio} 0.9-2.4 [facility] Serum or plasma calcium michelle urement (mass/volume)Ordered By: Cristóbal Nielsen on 01-21-2023 Calcium [Mass/Vol] 8.6 mg/dL 8.5-10.1 [facility] Serum or plasma cholesterol in HDL measurement (mass/volume)Ordered By: Cristóbal Nielsen on 01-21-2023 Cholesterol in HDL [Mass/Vol] 60 mg/dL >40 [facility] Comment on above: The drugs N-Acetylcy steine and Metamizole may falsely depress this assay. Reference Range HDL <40 mg/dL Low HDL Cholesterol HDL >or= 60 mg/dL High HDL Cholesterol Serum or plasma cholesterol in VLDL measurement (mass/volume)Ordered By: Cristóbal Nielsen on 01-21-2023 Cholesterol in VLDL [Mass/Vol] 14 mg/dL 5-40 [facility] Serum or plasma creatinine m easurement (mass/volume)Ordered By: Cristóbal Nielsen on 01-21-2023 Creatinine [Mass/Vol] 0.84 mg/dL 0.55-1.02 [facility] Comment on above: The validity of the calculated GFR & GFRAA in patients over 70 years has not been determined. Clinical correlation is essential. Serum or plasma low density lipoprotein (LDL) cholesterol measurement (mass/volume)Ordered By: Cristóbal Nielsen on 01-21-2023 Cholesterol in LDL [Mass/Vol] 73 mg/dL 0-130 [facility] Serum or plasma urea nitroge n measurement (mass/volume)Ordered By: Cristóbal Nielsen on 01-21-2023 Urea nitrogen [Mass/Vol] 16 mg/dL 7-18 [facility] Squamous epithelial cells de tection in urine sediment by light microscopyOrdered By: Cristóbal Nielsen on 01-21-2023 Epithelial cells.squamous LM Ql (Urine sed) 0-5 SEEN /hpf 5-10 [facility] Thin prep Papanicolaou smear with manual screeningOrdered By: Cristóbal Nielsen on 01-21-2023 Thin prep Papanicolaou smear with manual screening 14 U/L 15-37 [facility] Thin prep Papanicolaou smear with manual screening 7 5-15 [facility] Urine blood detectionOrdered By: Cristóbal Nielsen on 01-21-2023 RBC Ql (U) Negative Negative [facility] RBC Ql (U) 0 SEEN /hpf 0-5 [facility] Urine clarityOrdered By: Zachary Nielsen on 01-21-2023 Clarity (U) Sl. Cloudy Clear [facility] Urine color determinationOrd ered By: Cristóbal Nielsen on 01-21-2023 Color (U) Yellow Yellow [facility] Urine glucose detectionOrder ed By: Cristóbal Nielsen on 01-21-2023 Glucose Ql (U) Normal mg/dl Normal [facility] Urine leukocyte esterase det ection by dipstickOrdered By: Cristóbal Nielsen on 01-21-2023 Leukocyte esterase Test strip Ql (U) Negative Negative [facility] Urine pHOrdered By: Cristóbal dee on 01-21-2023 pH (U) 6.0 [pH] 5.0 - 8.0 [facility] Urine sediment bacteria coun t by microscopy (number/high power field)Ordered By: Cristóbal Nielsen on 01-21-2023 Bacteria LM.HPF (Urine sed) [#/Area] RARE /hpf None Seen [facility] Urine specific gravity measu rementOrdered By: Cristóbal Nielsen on 01-21-2023 Specific gravity (U) [Rel density] 1.015 1.002-1.030 [facility] Urobilinogen Auto test strip Ql (U)Ordered By: Cristóbal Nielsen on 01-21-2023 Urobilinogen Ql (U) Normal mg/dl Normal [facility] Whole blood hemoglobin A1c/t otal hemoglobin ratio (mass fraction)Ordered By: Cristóbal Nielsen on 01-21-2023 HbA1c (Bld) [Mass fraction] 5.0 % 3.8-5.6 [facility] Comment on above: Normal < 5.7 % Predi abetic 5.7 - 6.4 % Diabetic >or= 6.5 % Please note range changes. Absolute lymphocyte countOrd ered By: Dr. Nielsen on 09-23-2022 Lymphocytes Auto (Unsp spec) [#/Vol] 1.40 10*3/uL 0.83-4.51 [facility] Basophil percentageOrdered B y: Dr. Nielsen on 09-23-2022 Basophil percentage 0 SEEN /hpf 0-5 [facility] Basophils/100 WBC (Bld) 0.6 % 0-1 [facility] Bilirubin [Mass/Vol] 0.40 mg/dL 0.20-1.00 [facility] Comment on above: For patients on eltr ombopag therapy, use of Dimension [place] TBIL is not recommended. Chloride [Moles/Vol] 101 mmol/L 98-107 [facility] Cholesterol [Mass/Vol] 175 mg/dL <200 [facility] Comment on above: <200 mg/dL Desirable 200-240 mg/dL Borderline >240 mg/dL High Risk Eosinophils/100 WBC (Bld) 3.8 % 0-5 [facility] Glucose [Mass/Vol] 90 mg/dL 74-106 [facility] Neutrophils (Bld) [#/Vol] 5.3 10*3/uL 2.0-7.7 [facility] Neutrophils/100 WBC (Bld) 68.1 % 47-70 [facility] Potassium [Moles/Vol] 4.6 mmol/L 3.5-5.1 [facility] Protein [Mass/Vol] 7.9 g/dL 6.4-8.2 [facility] Sodium [Moles/Vol] 131 mmol/L 136-145 [facility] Triglyceride [Mass/Vol] 57 mg/dL <199 [facility] Comment on above: The drugs N-Acetylcy steine and Metamizole may falsely depress this assay.Serum Triglycerides Reference Interval Normal <150 mg/dL Borderline high 150 - 199 mg/dL High 200 - 499 mg/dL Very High > or = 500 mg/dL WBC (Bld) [#/Vol] 7.8 10*3/uL 4.4-11.0 [facility] Bilirubin Test strip Ql (U)O rdered By: Dr. Nielsen on 09-23-2022 Bilirubin Ql (U) Negative Negative [facility] Blood erythrocytes count (nu mber/volume)Ordered By: Dr. Nielsen on 09-23-2022 RBC (Bld) [#/Vol] 3.65 10*6/uL 4.2-5.4 [facility] Blood hemoglobin measurement (mass/volume)Ordered By: Dr. Nielsen on 09-23-2022 Hemoglobin (Bld) [Mass/Vol] 11.9 g/dL 12.0-15.0 [facility] Blood lymphocytes/100 leukoc ytesOrdered By: Dr. Nielsen on 09-23-2022 Lymphocytes/100 WBC (Bld) 17.9 % 19-41 [facility] Blood monocytes/100 leukocyt esOrdered By: Dr. Nielsen on 09-23-2022 Monocytes/100 WBC (Bld) 9.2 % 0-[address] [facility] Blood platelet mean volumeOr dered By: Dr. Nielsen on 09-23-2022 Platelet mean volume (Bld) [Entitic vol] 10.8 fL 6.2-12.0 [facility] Determination of erythrocyte mean corpuscular volume (MCV)Ordered By: Dr. Nielsen on 09-23-2022 MCV (RBC) [Entitic vol] 99.2 fL 81-99 [facility] Hematocrit Auto (Bld) [Volum e fraction]Ordered By: Dr. Nielsen on 09-23-2022 Hematocrit (Bld) [Volume fraction] 36.2 % 37-47 [facility] Iron measurement (mass/mass) Ordered By: Dr. Nielsen on 09-23-2022 Iron (Unsp spec) [Mass/Mass] 60 ug/dL 50-170 [facility] Ketones Test strip Ql (U)Ord ered By: Dr. Nielsen on 09-23-2022 Ketones Ql (U) Negative Negative [facility] Laboratory - Chemistry and C hemistry - challengeOrdered By: Dr. Nielsen on 09-23-2022 ALP [Catalytic activity/Vol] 83 U/L 45-117 [facility] ALT [Catalytic activity/Vol] 22 U/L 13-56 [facility] CO2 [Moles/Vol] 21.0 mmol/L 21.0-32.0 [facility] Cobalamin (Vitamin B12) [Mass/Vol] 414 pg/mL 211-911 [facility] Globulin (S) [Mass/Vol] 4.3 g/dL 2.2-4.2 [facility] Urea nitrogen/Creatinine [Mass ratio] 16.0 mg/mg 10-20 [facility] Laboratory - Hematology and Cell countsOrdered By: Dr. Nielsen on 09-23-2022 Erythrocyte distribution width (RBC) [Entitic vol] 48.3 fL 35.1-43.9 [facility] Erythrocyte distribution width (RBC) [Ratio] 13.2 % 11.6-14.6 [facility] Immature granulocytes/100 WBC (Bld) 0.400 % 0.0-0.9 [facility] Comment on above: IG% - Immature Granu locytes (promyelocytes, myelocytes and metamyelocytes) > 1% indicates that a LEFT SHIFT is Present. MCH (RBC) [Entitic mass] 32.6 pg 27.0-32.0 [facility] Nucleated RBC/100 WBC (Bld) [Ratio] 0 % 0-5 [facility] MCHC Auto (RBC) [Mass/Vol]Or dered By: Dr. Nielsen on 09-23-2022 MCHC (RBC) [Mass/Vol] 32.9 g/dL 32-36 [facility] Mucus LM Ql (Urine sed)Order ed By: Dr. Nielsen on 09-23-2022 Mucus Ql (Urine sed) 0 SEEN /hpf [facility] Nitrite Test strip Ql (U)Ord ered By: Dr. Nielsen on 09-23-2022 Nitrite Ql (U) Negative Negative [facility] No Panel InformationOrdered By: Dr. Nielsen on 09-23-2022 Estimated GFR (MDRD) Amer 71 mL/min >60 [facility] Comment on above: GFR Calc Estimated GFR (MDRD) Non-Af Amer 58 mL/min >60 [facility] Comment on above: Non- GFR Calc Thyroid Stimulating Hormone (TSH) 1.07 uIU/mL 0.358-3.74 [facility] Total Iron Binding Capacity 290 ug/dL 250-450 [facility] Vitamin D 25-Hydroxy 37.4 ng/mL [facility] Comment on above: Vitamin D 25(OH) Sta tus Range Deficiency <20 ng/mL (50nmol/L) Insufficiency 20 - 30 ng/mL (50 - 75 nmol/L) Sufficiency 30 - 100 ng/mL (75 - 250 nmol/L) Toxicity >100 ng/mL (>250 nmol/L) Platelets bldOrdered By: Dr. Nielsen on 09-23-2022 Platelets (Bld) [#/Vol] 359 10*3/uL 150-450 [facility] Protein Test strip Ql (U)Ord ered By: Dr. Nielsen on 09-23-2022 Protein Ql (U) Negative Negative [facility] Serum or plasma albumin michelle urement (mass/volume)Ordered By: Dr. Nielsen on 09-23-2022 Albumin [Mass/Vol] 3.6 g/dL 3.2-5.0 [facility] Serum or plasma albumin/glob ulin mass ratioOrdered By: Dr. Nielsen on 09-23-2022 Albumin/Globulin [Mass ratio] 0.8 {ratio} 0.9-2.4 [facility] Serum or plasma calcium michelle urement (mass/volume)Ordered By: Dr. Nielsen on 09-23-2022 Calcium [Mass/Vol] 9.1 mg/dL 8.5-10.1 [facility] Serum or plasma cholesterol in HDL measurement (mass/volume)Ordered By: Dr. Nielsen on 09-23-2022 Cholesterol in HDL [Mass/Vol] 63 mg/dL >40 [facility] Comment on above: The drugs N-Acetylcy steine and Metamizole may falsely depress this assay. Reference Range HDL <40 mg/dL Low HDL Cholesterol HDL >or= 60 mg/dL High HDL Cholesterol Serum or plasma cholesterol in VLDL measurement (mass/volume)Ordered By: Dr. Nielsen on 09-23-2022 Cholesterol in VLDL [Mass/Vol] 11 mg/dL 5-40 [facility] Serum or plasma creatinine m easurement (mass/volume)Ordered By: Dr. Nielsen on 09-23-2022 Creatinine [Mass/Vol] 1.00 mg/dL 0.55-1.02 [facility] Comment on above: The validity of the calculated GFR & GFRAA in patients over 70 years has not been determined. Clinical correlation is essential. Serum or plasma ferritin sara surement (mass/volume)Ordered By: Dr. Nielsen on 09-23-2022 Ferritin [Mass/Vol] 170 ng/mL 8-252 [facility] Serum or plasma iron saturat ion measurement (mass fraction)Ordered By: Dr. Nielsen on 09-23-2022 Iron saturation [Mass fraction] 20.7 % 15.0-55.0 [facility] Serum or plasma low density lipoprotein (LDL) cholesterol measurement (mass/volume)Ordered By: Dr. Nielsen on 09-23-2022 Cholesterol in LDL [Mass/Vol] 101 mg/dL 0-130 [facility] Serum or plasma urea nitroge n measurement (mass/volume)Ordered By: Dr. Nielsen on 09-23-2022 Urea nitrogen [Mass/Vol] 16 mg/dL 7-18 [facility] Squamous epithelial cells de tection in urine sediment by light microscopyOrdered By: Dr. Nielsen on 09-23-2022 Epithelial cells.squamous LM Ql (Urine sed) 0 SEEN /hpf 5-10 [facility] Thin prep Papanicolaou smear with manual screeningOrdered By: Dr. Nielsen on 09-23-2022 Thin prep Papanicolaou smear with manual screening 19 U/L 15-37 [facility] Thin prep Papanicolaou smear with manual screening 9 5-15 [facility] Urine blood detectionOrdered By: Dr. Nielsen on 09-23-2022 RBC Ql (U) 10 /ul Negative [facility] RBC Ql (U) 0-5 SEEN /hpf 0-5 [facility] Urine clarityOrdered By: Dr. Nielsen on 09-23-2022 Clarity (U) Sl. Cloudy Clear [facility] Urine color determinationOrd ered By: Dr. Nielsen on 09-23-2022 Color (U) Yellow Yellow [facility] Urine glucose detectionOrder ed By: Dr. Nielsen on 09-23-2022 Glucose Ql (U) Normal mg/dl Normal [facility] Urine leukocyte esterase det ection by dipstickOrdered By: Dr. Nielsen on 09-23-2022 Leukocyte esterase Test strip Ql (U) Negative Negative [facility] Urine pHOrdered By: Dr. Cesar bates on 09-23-2022 pH (U) 7.0 [pH] 5.0 - 8.0 [facility] Urine sediment bacteria coun t by microscopy (number/high power field)Ordered By: Dr. Nielsen on 09-23-2022 Bacteria LM.HPF (Urine sed) [#/Area] 0 /[HPF] None Seen [facility] Urine specific gravity measu rementOrdered By: Dr. Nielsen on 09-23-2022 Specific gravity (U) [Rel density] 1.010 1.002-1.030 [facility] Urobilinogen Auto test strip Ql (U)Ordered By: Dr. Nielsen on 09-23-2022 Urobilinogen Ql (U) Normal mg/dl Normal [facility] Whole blood hemoglobin A1c/t otal hemoglobin ratio (mass fraction)Ordered By: Dr. Nielsen on 09-23-2022 HbA1c (Bld) [Mass fraction] 5.1 % 3.8-5.6 [facility] Comment on above: Normal < 5.7 % Predi abetic 5.7 - 6.4 % Diabetic >or= 6.5 % Please note range changes. Basophil percentageOrdered B y: Dr. Beckett on 05-26-2022 Chloride [Moles/Vol] 102 mmol/L 98-107 [facility] Glucose [Mass/Vol] 117 mg/dL 74-106 [facility] Comment on above: Fasting Glucose resu lt from 100 to 125 mg/dL suggests IMPAIRED HOMEOSTASIS per A.D.A. criteria. Potassium [Moles/Vol] 4.0 mmol/L 3.5-5.1 [facility] Sodium [Moles/Vol] 136 mmol/L 136-145 [facility] Laboratory - Chemistry and C hemistry - challengeOrdered By: Dr. Beckett on 05-26-2022 CO2 [Moles/Vol] 27.0 mmol/L 21.0-32.0 [facility] Urea nitrogen/Creatinine [Mass ratio] 10.3 mg/mg 10-20 [facility] No Panel InformationOrdered By: Dr. Beckett on 05-26-2022 Estimated GFR (MDRD) Amer 83 mL/min >60 [facility] Comment on above: GFR Calc Estimated GFR (MDRD) Non-Af Amer 68 mL/min >60 [facility] Comment on above: Non- GFR Calc Serum or plasma calcium michelle urement (mass/volume)Ordered By: Dr. Beckett on 05-26-2022 Calcium [Mass/Vol] 9.0 mg/dL 8.5-10.1 [facility] Serum or plasma creatinine m easurement (mass/volume)Ordered By: Dr. Beckett on 05-26-2022 Creatinine [Mass/Vol] 0.87 mg/dL 0.55-1.02 [facility] Comment on above: The validity of the calculated GFR & GFRAA in patients over 70 years has not been determined. Clinical correlation is essential. Serum or plasma urea nitroge n measurement (mass/volume)Ordered By: Dr. Beckett on 05-26-2022 Urea nitrogen [Mass/Vol] 9 mg/dL 7-18 [facility] Thin prep Papanicolaou smear with manual screeningOrdered By: Dr. Beckett on 05-26-2022 Thin prep Papanicolaou smear with manual screening 7 5-15 [facility] Basophil percentageon 2021 Chloride [Moles/Vol] 100 mmol/L 98-107 [facility] Work Phone: Glucose [Mass/Vol] 78 mg/dL 74-106 [facility] Work Phone: Potassium [Moles/Vol] 4.7 mmol/L 3.5-5.1 [facility] Work Phone: Sodium [Moles/Vol] 133 mmol/L 136-145 [facility] Work Phone: Laboratory - Chemistry and C hemistry - challengeon 12-22-2021 CO2 [Moles/Vol] 25.0 mmol/L 21.0-32.0 [facility] Work Phone: Sodium (U) [Moles/Vol] 52 mmol/L Not Establ. [facility] Work Phone: Urea nitrogen/Creatinine [Mass ratio] 14.7 mg/mg 10-20 [facility] Work Phone: No Panel Informationon 12-22 Estimated GFR (MDRD) Amer 82 mL/min >60 [facility] Work Phone: Comment on above: GFR Calc Estimated GFR (MDRD) Non-Af Amer 67 mL/min >60 [facility] Work Phone: Comment on above: Non- GFR Calc Serum or plasma calcium michelle urement (mass/volume)on 12-22-2021 Calcium [Mass/Vol] 8.9 mg/dL 8.5-10.1 [facility] Work Phone: Serum or plasma creatinine m easurement (mass/volume)on 12-22-2021 Creatinine [Mass/Vol] 0.88 mg/dL 0.55-1.02 [facility] Work Phone: Comment on above: The validity of the calculated GFR & GFRAA in patients over 70 years has not been determined. Clinical correlation is essential. Serum or plasma urea nitroge n measurement (mass/volume)on 12-22-2021 Urea nitrogen [Mass/Vol] 13 mg/dL 7-18 [facility] Work Phone: Thin prep Papanicolaou smear with manual screeningon 12-22-2021 Thin prep Papanicolaou smear with manual screening 8 5-15 [facility] Work Phone: Basophil percentageon 2021 Chloride [Moles/Vol] 98 mmol/L 98-107 [facility] Work Phone: Glucose [Mass/Vol] 93 mg/dL 74-106 [facility] Work Phone: Potassium [Moles/Vol] 4.2 mmol/L 3.5-5.1 [facility] Work Phone: Sodium [Moles/Vol] 129 mmol/L 136-145 [facility] Work Phone: Laboratory - Chemistry and C hemistry - challengeon 11-18-2021 CO2 [Moles/Vol] 24.0 mmol/L 21.0-32.0 [facility] Work Phone: Urea nitrogen/Creatinine [Mass ratio] 16.1 mg/mg 10-20 [facility] Work Phone: No Panel Informationon 11-18 Estimated GFR (MDRD) Amer 83 mL/min >60 [facility] Work Phone: Comment on above: GFR Calc Estimated GFR (MDRD) Non-Af Amer 69 mL/min >60 [facility] Work Phone: Comment on above: Non- GFR Calc Serum or plasma calcium michelle urement (mass/volume)on 11-18-2021 Calcium [Mass/Vol] 8.8 mg/dL 8.5-10.1 [facility] Work Phone: Serum or plasma creatinine m easurement (mass/volume)on 11-18-2021 Creatinine [Mass/Vol] 0.87 mg/dL 0.55-1.02 [facility] Work Phone: Comment on above: The validity of the calculated GFR & GFRAA in patients over 70 years has not been determined. Clinical correlation is essential. Serum or plasma urea nitroge n measurement (mass/volume)on 11-18-2021 Urea nitrogen [Mass/Vol] 14 mg/dL 10-20 [facility] Work Phone: Thin prep Papanicolaou smear with manual screeningon 11-18-2021 Thin prep Papanicolaou smear with manual screening 08-17 [facility] Work Phone: Vital Signs Date Time Vital Sign Value Performing Clinician Faci lity 05-24-2024 08:29-0500 Body height 160.[address] Cristóbal Nielsen MD Work Phone: [facility] 05-24-2024 08:29-0500 Body mass index (BMI) [Ratio] 37.7 kg/m2 Dr. Cristóbal Nielsen MD Work Phone: [facility] 05-24-2024 08:29-0500 Body weight 96.[address] Cristóbal Nielsen MD Work Phone: [facility] 05-24-2024 08:29-0500 Diastolic blood pressure 87 mm[Hg] Dr. Cristóbal Nielsen MD Work Phone: [facility] 05-24-2024 08:29-0500 Heart rate 65 /min Dr. Cristóbal Nielsen MD Work Phone: [facility] 05-24-2024 08:29-0500 Respiratory rate 20 /min Dr. Cristóbal Nielsen MD Work Phone: [facility] 05-24-2024 08:29-0500 SaO2% (BldA) [Mass fraction] 95 % Dr. Cristóbal Nielsen MD Work Phone: [facility] 05-24-2024 08:29-0500 Systolic blood pressure 127 mm[Hg] Dr. Cristóbal Nielsen MD Work Phone: [facility] 06-30-2023 08:53-0400 Body temperature 98.1 [degF] Dr. Cristóbal Nielsen Work Phone: [facility] 06-30-2023 08:53-0400 Diastolic blood pressure 62 mm[Hg] Dr. Cristóbal Nielsen Work Phone: [facility] 06-30-2023 08:53-0400 Heart rate 60 /min Dr. Cristóbal Nielsen Work Phone: 6(016)714-080522 [place] [address] 06-30-2023 08:53-0400 Respiratory rate 16 /min Dr. Cristóbal Nielsen Work Phone: 8(310)678-023972 [address] 06-30-2023 08:53-0400 SaO2% (BldA) [Mass fraction] 100 % Dr. Cristóbal Nielsen Work Phone: 0(031)517-732716 [place] [address] 06-30-2023 08:53-0400 Systolic blood pressure 95 mm[Hg] Dr. Cristóbal Nielsen Work Phone: 9(200)863-310172 [address] 06-30-2023 07:06-0400 Body height 160.[address] Cristóbal Nielsen Work Phone: 5(529)579-727916 [place] [address] 06-30-2023 07:06-0400 Body mass index (BMI) [Ratio] 36.3 kg/m2 Dr. Cristóbal Nielsen Work Phone: 7(189)306-963322 [place] [address] 06-30-2023 07:06-0400 Body weight [address] Cristóbal Nielsen Work Phone: 2(448)782-132322 [place] [address] 05-27-2023 09:16-0500 Body height 160.[address] Cristóbal Nielsen Work Phone: 9(713)652-482172 [address] 05-24-2023 10:41-0500 Body mass index (BMI) [Ratio] 37.2 kg/m2 Dr. Cristóbal Nielsen Work Phone: 8(362)930-931422 [place] [address] 05-24-2023 10:41-0500 Body weight 95.[address] Cristóbal Nielsen Work Phone: 3(745)357-102622 [place] [address] 05-17-2023 10:26-0500 Body mass index (BMI) [Ratio] 37.2 kg/m2 Dr. Cristóbal Nielsen Work Phone: [facility] 05-17-2023 10:26-0500 Diastolic blood pressure 86 mm[Hg] Dr. Cristóbal Nielsen Work Phone: [facility] 05-17-2023 10:26-0500 Systolic blood pressure 128 mm[Hg] Dr. Cristóbal Nielsen Work Phone: [facility] 05-17-2023 10:09-0500 Body temperature 98 [degF] Dr. Cristóbal Nielsen Work Phone: [facility] 05-17-2023 10:09-0500 Body weight 95.[address] rCistóbal Nielsen Work Phone: [facility] 05-17-2023 10:09-0500 Heart rate 75 /min Dr. Cristóbal Nielsen Work Phone: [facility] 05-17-2023 10:09-0500 Respiratory rate 16 /min Dr. Cristóbal Nielsen Work Phone: [facility] 05-17-2023 10:09-0500 SaO2% (BldA) [Mass fraction] 94 % Dr. Cristóbal Nielsen Work Phone: [facility] 04-14-2023 10:49-0500 Body mass index (BMI) [Ratio] 37 kg/m2 Dr. Cristóbal Nielsen Work Phone: [facility] 04-14-2023 10:49-0500 Body weight 94.[address] Cristóbal Nielsen Work Phone: [facility] 04-14-2023 10:49-0500 Diastolic blood pressure 69 mm[Hg] Dr. Cristóbal Nielsen Work Phone: [facility] 04-14-2023 10:49-0500 Heart rate 70 /min Dr. Cristóbal Nielsen Work Phone: [facility] 04-14-2023 10:49-0500 Respiratory rate 20 /min Dr. Cristóbal Nielsen Work Phone: [facility] 04-14-2023 10:49-0500 SaO2% (BldA) [Mass fraction] 95 % Dr. Cristóbal Nielsen Work Phone: [facility] 04-14-2023 10:49-0500 Systolic blood pressure 101 mm[Hg] Dr. Cristóbal Nielsen Work Phone: [facility] 02-02-2022 15:16-0400 Body height 160.[address] Cristóbal Nielsen Work Phone: [facility] Work Phone: 02-02-2022 15:16-0400 Body mass index (BMI) [Ratio] 36 kg/m2 Dr. Cristóbal Nielsen Work Phone: [facility] Work Phone: 02-02-2022 15:16-0400 Body weight 92.[address] Cristóbal Nielsen Work Phone: [facility] Work Phone: 02-02-2022 15:16-0400 Diastolic blood pressure 80 mm[Hg] Dr. Cristóbal Nielsen Work Phone: [facility] Work Phone: 02-02-2022 15:16-0400 Heart rate 76 /min Dr. Cristóbal Nielsen Work Phone: [facility] Work Phone: 02-02-2022 15:16-0400 Respiratory rate 16 /min Dr. Cristóbal Nielsen Work Phone: [facility] Work Phone: 02-02-2022 15:16-0400 Systolic blood pressure 116 mm[Hg] Dr. Cristóbal Nielsen Work Phone: [facility] Work Phone: Encounters Encounter Date Encounter Type Care Provider Facility Start: 07-14-2024 End: 07-14-[address] Cristóbal Nielsen MD Work Phone: [facility] Work Phone: Start: 07-14-2024 End: 07-14-[address] Cristóbal Nielsen MD -Cat Scan, [facility] Work Phone: Start: 07-14-2024 End: 07-14-2024 ambulatory Cristóbal Nielsen Facility:[facility] Start: 06-13-2024 End: 06-13-[address] Cristóbal Nielsen MD Work Phone: [facility] Work Phone: Start: 06-13-2024 End: 06-13-[address] Cristóbal Nielsen MD -Cat Scan, [facility] Work Phone: Start: 06-13-2024 End: 06-13-2024 ambulatory Cristóbal iNelsen Facility:[facility] Start: 05-24-2024 End: 05-24-2024 Patient encounter procedure Cristóbal Trinh NP-C -[facility] Work Phone: Start: 05-24-2024 End: 05-24-2024 ambulatory Cristóbal Trinh NP Facility:[facility] Start: 05-16-2024 End: 05-16-[address] Cristóbal Nielsen MD -Laboratory, [facility] Start: 05-16-2024 End: 05-16-2024 ambulatory Cristóbal Nielsen Facility:[facility] Start: 02-03-2024 End: 02-03-2024 ambulatory Cristóbal Nielsen Facility:[facility] Start: 01-04-2024 End: 01-04-2024 ambulatory Cristóbal Nielsen Facility:[facility] Start: 10-12-2023 End: 10-12-2023 ambulatory Cristóbal Nielsen Facility:[facility] Start: 06-30-2023 Non-patient / Non-visit Dr. Lesly Nielsen Work Phone: [facility] Start: 06-30-2023 End: 06-30-2023 Admission to same day surgery center Dr. Cristóbal Nielsen Work Phone: [facility] Work Phone: Start: 06-30-2023 End: 06-30-[address] Cristóbal Nielsen Work Phone: [facility] Work Phone: Start: 06-04-2023 End: 06-04-[address] Cristóbal Nielsen Work Phone: [facility] Work Phone: Start: 06-04-2023 End: 06-04-[address] Cristóbal Nielsen Work Phone: [place] Start: 05-27-2023 End: 05-27-[address] Cristóbal Nielsen Work Phone: [facility] Start: 05-24-2023 End: 05-24-[address] Cristóbal Nielsen Work Phone: [facility] Work Phone: Start: 05-24-2023 End: 05-24-[address] Cristóbal Nielsen Work Phone: [facility] Work Phone: Start: 05-24-2023 Non-patient / Non-visit Dr. Lesly Nielsen Work Phone: [facility] Work Phone: Start: 05-17-2023 End: 05-17-[address] Cristóbal Nielsen Work Phone: [facility] Work Phone: Start: 05-17-2023 Non-patient / Non-visit Dr. Lesly Nielsen Work Phone: [facility] Work Phone: Start: 04-14-2023 End: 04-14-[address] Cristóbal Nielsen Work Phone: [facility] Work Phone: Start: 01-21-2023 End: 01-21-2023 ambulatory [facility] Work Phone: Start: 01-21-2023 End: 01-21-2023 Patient encounter procedure [place] Start: 09-23-2022 End: 09-23-2022 ambulatory [facility] Work Phone: Start: 09-23-2022 End: 09-23-2022 Patient encounter procedure [place] Start: 06-01-2022 End: 06-01-[address] Cristbóal Nielsen Work Phone: [facility] Work Phone: Start: 06-01-2022 End: 06-01-[address] Cristóbal Nielsen Work Phone: [facility] Start: 05-26-2022 End: 05-26-[address] Cristóbal Nielsen Work Phone: [facility] Work Phone: Start: 05-26-2022 End: 05-26-[address] Cristóbal Nielsen Work Phone: [facility] Start: 02-11-2022 Non-patient / Non-visit Dr. Lesly Nielsen Work Phone: [facility] Start: 02-11-2022 End: 02-11-[address] Cristóbal Nielsen Work Phone: [facility] Work Phone: Start: 02-11-2022 End: 02-11-[address] Cristóbal Nielsen Work Phone: [facility] Start: 02-02-2022 End: 02-02-[address] Cristóbal Nielsen Work Phone: [facility] Start: 12-22-2021 End: 12-22-2021 ambulatory [facility] Work Phone: Start: 12-22-2021 End: 12-22-2021 Patient encounter procedure [facility] Start: 11-18-2021 End: 11-18-2021 Patient encounter procedure [facility] Procedures Date Procedure Procedure Detail Performing Clinician Start: 07-14-[address] Cristóbal prajapati MD Work Phone: Start: 06-13-2024 CT of head without contrast Dr. Cristóbal Nielsen MD Work Phone: Start: 06-30-[address] Cristóbal prajapati Work Phone: Start: 05-27-2023 Plain chest X-ray Dr. Higinio Nielsen Work Phone: Start: 06-01-2022 Screening mammography Reg Nielsen Work Phone: Start: 02-11-2022 Radionuclide imaging of perfusion of myocardium under exercise stress Dr. Cristóbal Nielsen Work Phone: Plan of Treatment Date Care Activity Detail Author Start: 06-30-2023 Patient discharge [facility] Colonoscopy [facility] Patient referral [facility] Work Phone: Immunizations Immunization Date Immunization Notes Care Provider Ketan ohara 07-11-2015 tetanus and diphther ia toxoids, adsorbed, preservative free, for adult use (2 Lf of tetanus toxoid and 2 Lf of diphtheria toxoid) [facility] Payers Date Payer Category Payer Self-pay [id number] 2023 Medicare [id number] 2010 Private Health Insurance ELIZABETH [id number] [id number] Medicare MEDICARE PART A B [id number] Medicare [facility] MEDICARE O [id number] Unknown [id number] 60 Unknown [id number] 62 Unknown [id number] 62 Unknown [id number] 62 Unknown [id number] 62 Unknown [id number] 62 Unknown [id number] 62 Social History Date Type Detail Facility Start: 01-27-2021 End: 06-30-2023 Tobacco smoking status OKIS Unknown if ever smoked [facility] Start: 02-11-2018 Secondhand [facility] Start: 1955 Sex Assigned At Female [facility] Start: 06-30-2023 Tobacco smoking stat us OKIS Never smoked tobacco (finding) [facility] Start: 06-22-2024 End: 07-19-2024 Sex Female (finding) [facility] Goals Date Patient Goal Desired Activity /State Mental Status Date Assessment Result Facility 06-30-2023 Cognitive function Voice/Name [facility] Work Phone: Radiology Diagnostic study note 07-15-2024 Note Date & Type Note Facility 07-15-2024 Radiology Diagnostic study note [facility] Imaging Services [address] [place], [place] [address] Sinus/Facial Bone MR#: [id number] Acct: [id number] Name: MARIANNE JOYCE Rep #: [id number] : 1955 F 68 From: Ashutosh Najera MD PCP: Dr. Cristóbal Nielsen MD Status: RE G CLI Study:Sinus/Facial Bone Date of Exam: Exam# [id number] Ordering Dr: Cristóbal Nielsen MD PROCEDURE: SINUS/FACIAL BONE REASON FOR EXAM: SINUSITIS TECHNIQUE: CT of the paranasal sinuses without contrast. Coronal and Sagittal reconstruction series were provided. One or more dose reduction techniques were used (e.g., Automated exposure control, adjustment of the mA and/or kV according to patient size, use of iterative reconstruction technique). COMPARISON: None. FINDINGS: The paranasal sinuses are clear. No air-fluid levels. No wall thickening or sclerosis. The ostiomeatal complexes, frontoethmoidal and sphenoethmoidal recesses appear clear. The turbinates appear within limits. Bilateral robert bullosa, incidental. Slight leftward bowing of the nasal septum with an anterior nasal septal spur for example coronal 36. The infratemporal fossa fat appears preserved. Pterygopalatine foramen appear within limits. 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 TMJs appear normally located. Orbits appear within limits. Previous bilateral cataract surgery. The mastoids appear clear. Middle and inner ears appear within limits. Internal auditory canals appear within limits. [place] artifact from dental amalgam. No periapical lucency identified. C4-5 spondylosis/discogenic change. CT/Sinus/Facial Bone IMPRESSION: The paranasal sinuses appear clear as above. Reading Location: [id number] CC: Dr. Cristóbal Nielsen MD ~ Electronic Components Assembler: Signed [facility] Radiology Diagnostic study note 06-13-2024 Note Date & Type Note Facility 06-13-2024 Radiology Diagnostic study note [facility] Imaging Services [address] [place] [place], [place] [address] Brain/Head without Contrast MR#: [id number] Acct: [id number] Name: MARIANNE JOYCE Rep #: [id number] : 1955 F 68 From: Ashutosh Christianson DO PCP: Dr. Cristóbal Nielsen MD Status: RISHI HERNANDEZ Study:Brain/Head without Contrast Date of Exa m: 06/13/24 Exam# [id number] Ordering Dr: Cristóbal Nielsen MD EXAM: CT brain without IV contrast CLINICAL HISTORY: Pain, sinusitis, headaches COMPARISON: None TECHNIQUE: Multiple contiguous axial images through the brain were obtained without the administration of intravenous contrast. Two-dimensional coronal and sagittal reformatted images were reconstructed. Low-dose imaging technique was utilized. FINDINGS: No evidence of acute intracranial hemorrhage, midline shift or mass effect. No definite CT evidence of acute territorial cortical infarction. No hydrocephalus. Mild cerebral atrophy and chronic small-vessel ischemic changes. Calvarium is intact. Paranasal sinuses and mastoid air cells are clear. CT/Brain/Head without Contrast IMPRESSION: 1. No acute intracranial abnormality. 2. Mild atrophy and chronic small-vessel ischemic disease. Reading Location: [facility] CC: Dr. Cristóbal Nielsen MD ~ Electronic Components Assembler: Signed [facility] Evaluation note 05-24-2024 Note Date & Type Note Facility 05-24-2024 Evaluation note Diagnosis Onset Date Resolution Ascending aorta dilation acute May 24 025 8:28am Essential hypertension chronic Fe bruary 2024 8:28am [facility] Work Phone: History and physical note 06-30-2023 Note Date & Type Note Facility 06-30-2023 History and physi cassy note Note Date/Time June 30, 2023 7:16am [facility] Medical Records Department [address] [place] [address] History & Physical Exam 06/30/23 0714 MR#: [id number] Acct: [id number] Name: MARIANNE JOYCE Rep #:[id number] : 1955 67 From: Rayna Sandoval MD PCP: Dr. Cristóbal Nielsen MD Status:RISHI [place]ct[place] [facility] Location: [place] [address] HPI - General General Date of Service: 06/30/23 HPI Narrative MARIANNE JOYCE, is a 67 F who presents for screening colonoscopy due to history of colon polyps. Patient last colonoscopy was in May 2020. Patient's mom and maternal grandmother both had colon cancer?mom was 54 when she was diagnosed. Patient has bowel movements daily. Patient states she has been having diarrhea off and on but not consistent. Patient denies any chronic abdominal pain/nausea/vomiting/reflux. [facility] Medical History (Updated 06/30/23 @ 07:[address] Rayna Sandoval MD) Cardiology follow-up encounter Chest pain Depression Diverticulitis Easy bruising Essential hypertension Family history of colon cancer in mother GERD (gastroesophageal reflux disease) History of skin cancer History of stress test Hx of colonic polyp Knee pain Non-smoker Nonrheumatic mitral (valve) insufficiency Nonrheumatic tricuspid (valve) insufficiency Rheumatoid arthritis SOB (shortness of breath) Home Medications aspirin 81 mg tablet,delayed release (Adult Aspirin Regimen) 81 mg PO DAILY #1 TAB 12/22/18 [Rx Last Taken 02/15/19] ascorbic acid (vitamin C) 1,000 mg tablet,extended release 500 mg PO Q12H 01/27/21 [History Last Taken Unknown] metoprolol tartrate 50 mg tablet 50 mg PO BID dose increased today #180 tabs 03/18/23 [Rx Last Taken 06/30/23] cholecalciferol (vitamin D3) 50 mcg (2,000 unit) capsule 50 mcg PO BID 04/14/23 [History Last Taken Unknown] losartan 50 mg tablet 50 mg PO DAILY 04/14/23 [History Last Taken 06/30/23] multivitamin 1 tab PO DAILY 04/14/23 [History Last Taken Unknown] sertraline 50 mg tablet (Zoloft) 50 mg PO DAILY 04/14/23 [History Last Taken Unknown] benzonatate 200 mg capsule 200 mg PO TID PRN cough #14 caps 05/17/23 [Rx Last Taken Unknown] oxybutynin chloride 5 mg tablet 5 mg PO DAILY 05/17/23 [History Last Taken Unknown] famotidine 40 mg tablet 40 mg PO QPM 06/28/23 [History Last Taken Unknown] Allergy/AdvReac Type Severity Reaction Status Date / Time adhesive tape AdvReac Rash Verified 06/30/23 07:03 Family History (Updated 05/24/23 @ 10:34 by Elizabeth Bridges) Mother Colon cancer, Onset Age: 52 with colon ca at 55yrs. Father Lung cancer Sister History of heart valve replacement Cardiac pacemaker in situ Cancer skin Thyroid disorder Grandmother Rectal cancer Surgical History History of basal cell carcinoma excision History of colonoscopy with polypectomy History of hysterectomy History of left heart catheterization (02/15/19) History of wisdom tooth extraction Social History (Updated 05/24/23 @ 10:34 by Elizabeth Bridges) current occupational status: retired Smoking Status: Never smoker alcohol intake: current alcohol intake frequency: a few times a month substance use type: does not use Past Medical/Surgical History Planned Operation Planned Operative Procedure/s: COLONOSCOPY S.O.S: No Previous Hospitalizations/Surgeries HX Hospitalizations: No HX of Surgeries: PARTIAL HYSTERECTOMY 1998 SKIN CANCER 2010 PLANTAR FASCIOTOMY 2013 Any Problems With Anesthesia: No You/Your Family Experience Fever (Hyperthermia) With Anes: No Cholinesterase deficiency: No Cardiovascular Hx Chest Pain within Last 2 months: No Hx of Irregular Heartbeat and/or Afib: No Hx Heart Attack: No Hx Congestive Heart Failure: No Hx Rheumatic Fever: No Hx Hypertension: Yes (ON MEDS) Hx Internal Defibrillator: No Hx Pacemaker: No Hx Cardiac Catheterization: Yes ([facility] 02/2019) What facility was last heart cath performed: - Date of last Heart Cath: - Hx Cardiac Surgery/Stents/Etc.: No Hx Stress Test: Yes (2015) Hx Pain in Legs when Walking/Leg Cramps: No Respiratory Chronic Cough: No HX of Shortness of Breath: No Hoarseness: No Hx Chronic Obstructive Pulmonary Disease (COPD): No Hx Asthma: No Hx Emphysema: No Hx Sleep Apnea: No CPAP: No BIPAP: No Hx Respiratory Tract Infection/Cold (presently): Yes (URI, RUN[place]SE. STARTED FIRST WEEK OF JUNE.) Do You Snore Loudly (louder than talking or can be heard): No Do You Often Feel Tired/ Fatigued/ Sleepy Dring Daytime?: No Has Anyone Observed You Stop Breathing During Sleep?: No Result (for STOP score): Negative Hx Smoking: No Smoking Status: Never smoker Gastrointestinal Controlled With Meds: Yes (ON PROTONIX) Hx Gastrointestinal Disorders: No Hx Gastrointestinal Bleed: No Hx Ulcer: No Hx Hiatal Hernia: No Difficulty Chewing/Swallowing: No Special diet followed at home: No Hx Unplanned Weight Loss of 20#: No HX Unplanned Weight Gain of 20#: No Neurological Hx Seizures: No HX Syncope/Blackout Spells/Unconsciousness: No Hx Transient Ischemic Attacks (TIA): No Hx Multiple Sclerosis: No Hx Parkinson's Disease: No Hx Head/Neck Injury: Yes (Multiple concussions) Hx Headaches: No Hx Back Injury/Pain: No Recent Onset of Speech Difficulty: No Restless Legs: No Does patient have nerve stimulator: No Blood Disorder Hx Leukemia: No Bleeding Tendencies: No Hx Deep Vein Thrombosis: No Hx High Cholesterol: No Blood Transmitted Disease: No Hx Hepatitis: No Hx Cirrhosis: No Hx Anemia: No Hx Blood Disorders: No Reproduction Is Patient Lactating: No Hx Hysterectomy: Yes Are You Post Menopause: Yes Genitourinary Hx Renal Disease: No Musculoskeletal Hx Arthritis: Yes (SEES DR PURI) Hx Rheumatoid Arthritis: No Hx Gout: No Recent Onset of an Orthopedic Problem: No Endocrine Hx Diabetes: No Thyroid Disease: No Hx Steroid Therapy: No Psycho/Social Hx Substance Use: No Hx Alcohol Use: Yes (Occasional) Hx Anxiety: No Hx Depression: No Mental Illness: No Hx Dementia: No Miscellaneous Hx Cancer: Yes (SKIN CANCER) Recent Exposure to Contagious Disease: No Hx of C-Diff: No Any Loose Teeth: No Allergies adhesive tape Adverse Reaction (Verified 06/30/23 07:03) Rash Irritation From the PAT History Number of Risk Factors: 3 Vital Signs Vital Signs Vital Signs: 06/30/23 07:06 06/30/23 07:06 Temperature 97.8 F Temperature Source Temporal Pulse Rate 75 Respiratory Rate 16 Respiratory Pattern Normal Blood Pressure 111/71 Blood Pressure Mean 84 Blood Pressure Source Monitor Blood Pressure Position Semi-Fowlers Blood Pressure Location Right Arm Pulse Ox 99 Oxygen Delivery Method Room Air Weight Weight: 205 lb 0.478 oz Body Mass Index (BMI) 36.3 Physical Exam Const alert, oriented x3 and no apparent distress HEENT normocephalic and head/scalp atraumatic Resp normal respiratory effort Cardio regular rate GI soft to palpation and non-tender; Negative for non-distended Palpation: Negative for guarding Extremity no clubbing, cyanosis or edema Skin no rashes or lesions noted Neuro CN's II-XII intact bilaterally Psych mental status grossly normal Surgery Risks - Colonoscopy I discussed with the patient the risks of the procedure: Yes Risks Include but are not Limited To: Risks include but are not limited to: Bleeding, perforation requiring further surgery, inability to complete colonoscopy requiring barium enema. 06/30/2318 <Electronically signed by Rayna Sandoval MD> Cosigner Signature (if applicable): CC: Dr. Cristóbal Nielsen MD; Dr. Rayna Sandoval MD~ Signed [facility] Work Phone: Procedure note 06-30-2023 Note Date & Type Note Facility 06-30-2023 Procedure note [facility] Procedure note 06-30-2023 Note Date & Type Note Facility 06-30-2023 Procedure note [facility] Evaluation note Note Date & Type Note Facility Evaluation note No assessment information availa ble [facility] Work Phone: Evaluation note Note Date & Type Note Facility Evaluation note Diagnosis Onset Date Chest pain in adult acute Essential hypertension chron ic Nonrheumatic mitral (valve) insufficiency chronic Nonrheumatic tricuspid (valve) insufficiency chronic [facility] Work Phone: Evaluation note Note Date & Type Note Facility Evaluation note Diagnosis Onset Date Essential hypertension chron ic [facility] Work Phone: Reason for referral (narrative) Note Date & Type Note Facility Reason for referral (narrative) No reason for referral information available [facility] Work Phone: Family History No Family History Records Found Relationship Condition Age at Onset Recorded Date/T kyle mother Malignant neoplasm of colon Unknown father Malignant neoplasm of lung Unknown sister History of heart valve replacement Unknow n Presence of cardiac pacemaker Unknown Malignant neoplasm Unknown Disorder of thyroid Unknown Relationship Condition Age at Onset Recorded Date/T kyle mother Malignant neoplasm of colon 52 father Malignant neoplasm of lung Unknown sister History of heart valve replacement Unknow n Presence of cardiac pacemaker Unknown Malignant neoplasm Unknown Disorder of thyroid Unknown grandmother Malignant neoplasm of rectum Unknown Advance Directives No Advanced Directives Records Found Advance Directive Response Recorded Date/ Time Advance Directives Yes February 9:15am Living Will Yes May 15 12:58pm Power of Paint Specialist Yes May 15, 2020 12:58pm Advance Directive Response Recorded Date/ Time Advance Directives Yes February 8:15am Living Will Yes May 15 11:58am Power of Paint Specialist Yes May 15, 2020 11:58am Advance Directive Response Recorded Date/ Time Advance Directives Yes May 9:16am Living Will Yes May 27 9:16am Power of Paint Specialist Yes May 27, 2023 9:16am Advance Directive Response Recorded Date/ Time Advance Directives Yes May 10:16am Living Will No June 28, 2023 2:00pm Power of Paint Specialist No June 27 2:00pm Advance Directive Response Recorded Date/ Time Living Will Yes May 15 12:58pm Do you have a Healthcare Power of Paint Specialist? Yes May 15, 2020 12:58pm Advance Directives Yes May 10:16am Chief Complaint and Reason for Visit Chief Complaint 1 Y FU CHEST PAIN CHEST PAIN Reason for Visit Chest pain in adult Essential hypertension Nonrheumatic mitral (valve) insufficiency Nonrheumatic tricuspid (valve) insufficiency Chief Complaint CHEST PAIN CHEST PAIN SCREENING Chief Complaint SCREENING Chief Complaint 15 M FU SORE THROAT/CONGESTION Amb Documentation EORDER XRAY Reason for Visit Essential hypertensi on Chief Complaint Admit Date 1 Y FU/PREV PFM May 24, 2024 8:28am CHRONIC SINUSITIS June 13, 2024 6:4 9pm Reason for Visit Admit Date Ascending aorta dilation May 24, 2024 8:28am Essential hypertension May 24 8:28am Chief Complaint Admit Date 1 Y FU/PREV PFM May 24, 2024 8:28am CHRONIC SINUSITIS June 13, 2024 6:4 9pm SINUSITIS July 14, 2024 6:3 9pm Summary Purpose Additional Source Comments Goals (unrecognized section and content) Goals may be documented in a n alternate sectionGoals may be documented in an alternate sectionGoals may be documented in an alternate sectionGoals may be documented in an alternate sectionGoals may be documented in an alternate sectionGoals may be documented in an alternate sectionGoals may be documented in an alternate sectionGoals may be documented in an alternate sectionGoals may be documented in an alternate sectionGoals may be documented in an alternate section Care Teams (unrecognized sec tion and content) Team Status: Active Member Role Status Dates Dr. Cristóbal Nielsen MD Family Provider Active Dr. Cristóbal Nielsen MD Primary Care Provider Active Team Status: Active Member Role Status Dates Dr. Cristóbal Nielsen MD Primary Care Provider Active Dr. Prasanth Garcia MD Attending Provid er, Referring Provider, Other Provider Active Team Status: Inactive Member Role Status Dates Dr. Cristóbal Nielsen MD Primary Care Provider Active Dr. Gilma eBckett DO Attending Provider, Referring P afshan Active Team Status: Inactive Member Role Status Dates Dr. Cristóbal Nielsen MD Primary Care Provider Active Dr. Prasanth Garcia MD Attending Provider, Referring Provider Active Team Status: Active Member Role Status Dates Dr. Cristóbal Nielsen MD Primary Care Provider, Attend ing Provider Active Team Status: Inactive Member Role Status Dates Dr. Cristóbal Nielsen MD Primary Care Provider, Attend ing Provider Active Team Status: Inactive Member Role Status Dates Dr. Cristóbal Nielsen MD Primary Care Provider, Referr ing Provider Active Edna Antonio LEATHER TANNER, LEATHER TANNER-C Attending Provider Active Team Status: Inactive Member Role Status Dates Dr. Cristóbal Nielsen MD Primary Care Provider, Referr ing Provider Active Willi Ashley PA, PA Attending Provider Active Team Status: Active Member Role Status Dates Dr. Cristóbal Nielsen MD Primary Care Provider Active Cristóbal Trinh LEATHER TANNER, LEATHER TANNER-C Attending Provider Active Team Status: Active Member Role Status Dates Dr. Cristóbal Nielsen MD Primary Care Provider Active Elizabeth Bridges Attending Provider Active Team Status: Inactive Member Role Status Dates Dr. Cristóbal Nielsen MD Primary Care Provider Active Dr. John Madden MD Attending Provider Active Team Status: Inactive Member Role Status Dates Dr. Cristóbal Nielsen MD Primary Care Pr ovider, Attending Provider, Referring Provider Active Team Status: Active Member Role Status Dates Dr. Cristóbal Nielsen MD Primary Care Provider, Referr ing Provider Active Dr. Rayna Sandoval MD Attending Provider, Other Pro vider Active Team Status: Inactive Member Role Status Dates Dr. Cristóbal Nielsen MD Primary Care Provider, Referr ing Provider Active Dr. Rayna Sandoval MD Attending Provider Active Team Status: Active Member Role Status Dates Dr. Cristóbal Nielsen MD Primary Care Provider Active Team Status: Inactive Member Role Status Dates Dr. Cristóbal Nielsen MD Primary Care Provider Active Start: May 16, 2024 End: May 16, 2024 Dr. Cristóbal Nielsen MD Attending Provider Active Start: May 16, 2024 End: May 16, 2024 Dr. Cristóbal Nielsen MD Referring Provider Active Start: May 16, 2024 End: May 16, 2024 Team Status: Inactive Member Role Status Dates Dr. Cristóbal Nielsen MD Primary Care Provider Active Start: May 24, 2024 End: May 24, 2024 Dr. Cristóbal Nielsen MD Referring Provider Active Start: May 24, 2024 End: May 24, 2024 Cristóbal Trinh NP, NHANC Attending Provider Active S tart: May 24, 2024 End: May 24, 2024 Team Status: Inactive Member Role Status Dates Dr. Cristóbal Nielsen MD Primary Care Provider Active Start: June 13, 2024 End: June 13, 2024 Dr. Cristóbal Nielsen MD Attending Provider Active Start: June 13, 2024 End: June 13, 2024 Dr. Cristóbal Nielsen MD Referring Provider Active Start: June 13, 2024 End: June 13, 2024 Team Status: Inactive Member Role Status Dates Dr. Cristóbal Nielsen MD Primary Care Provider Active Start: July 14, 2024 End: July 14, 2024 Dr. Cristóbal Nielsen MD Attending Provider Active Start: July 14, 2024 End: July 14, 2024 Dr. Cristóbal Nielsen MD Referring Provider Active Start: July 14, 2024 End: July 14, 2024 INFORMATION SOURCE (unrecogn ized section and content) DATE CREATED AUTHOR 07/21/2024 [facility] FOR RECORDS PERTAINING TO PATIENTS WHO ARE OR HAVE BEEN ENROLLED IN A CHEMICAL DEPENDENCY/SUBSTANCEABUSE PROGRAM, SOME INFORMATION MAY BE OMITTED. This clinical summary was aggregated from multiple sources. Caution should be exercised in using it in the provision of clinical care. This summary normalizes information from multiple sources, and as a consequence, information in this document may materially change the coding, format and clinical context of patient data. In addition, data may be omitted in some cases. CLINICAL DECISIONS SHOULD BE BASED ON THE PRIMARY CLINICAL RECORDS. [facility], [facility]. provides no warranty or guarantee of the accuracy or completeness of information in this document.
== END | disposition home or self-care (01) ==
LOC: MFPLAB 09:09
PROVIDERS: PCP Family Medicine; Referring Provider Family Medicine; Visit Provider Family Medicine
DX: I10 Essential (primary) hypertension (principal)
CPT/HCPCS: 36415; 80053; 80061; 81001; 85025

== ENCOUNTER → 2024-12-20 | Outpatient (CLI) | payer MEDICARE, SELFPAY ==
[2024-12-20 09:21] LABS: Mucous, Urine 0 SEEN /hpf (<or=2+)
[2024-12-20 10:27] LABS: Color, Urine Yellow (Yellow); Glucose, Dipstick Normal (Normal); Ketone-Dipstick Negative (Negative); Leukocyte Esterase-Dipstick Negative /ul (Negative); Nitrite-Dipstick Negative (Negative); Occult Blood-Urine 10 /ul (Negative); Protein-Dipstick 15 mg/dl (Negative); Specific Gravity, Urine 1.010 (1.002-1.030); Urine Bilirubin Dipstick Negative (Negative)
[2024-12-20 10:28] LABS: Hematocrit 35.3 % (37-47); Hemoglobin 11.7 g/dL (12.0-15.0); Immature Granulocytes Count 0.010 X10^3/uL (0.0-0.0); Mean Corp Hgb Conc 33.1 g/dL (32-36); Mean Corpuscular Volume 96.2 fL (81-99); Mean Platelet Vol. 10.3 fl (6.2-12.0); NRBC Flagged by Analyzer 0 % (0-5); Platelet Count 298 K/mm3 (150-450); RBC Distribution Width CV 14.0 % (11.6-14.6); RBC Distribution Width SD 49.6 fl (35.1-43.9); Red Blood Count 3.67 M/mm3 (4.2-5.4); White Blood Count 6.1 K/mm3 (4.4-11.0)
[2024-12-20 10:37] LABS: Red Blood Cells-Urine 0-5 SEEN /hpf (0-5); Squamous Epithelial Cells - UA 0-5 SEEN /hpf (5-10)
[2024-12-20 12:56] LABS: AST(SGOT) 19 U/L (<=31); Alanine Aminotransfer ALT/SGPT 11 U/L (<=34); Albumin, Serum 3.9 g/dL (3.4-4.8); Alkaline Phosphatase 67 U/L (35-104); Anion Gap 11 (5-15); BUN 16 mg/dL (4-19); BUN/Creat Ratio 16.7 RATIO (10-20); Calcium,Total 9.2 mg/dL (7.6-11.0); Carbon Dioxide 24.5 mmol/L (21.0-32.0); Chloride 103 mmol/L (98-108); Cholesterol 178 mg/dL (<=200); Globulin 3.1 g/dL (2.2-4.2); Glucose 84 mg/dL (70-99); Low Density Lipoprotein Calc. 112 mg/dL; Magnesium 2.3 mg/dL (1.5-2.2); Potassium 4.6 mmol/L (3.3-5.1); Triglycerides 58 mg/dL; Very Low Density Lipoprotein 12 mg/dL (5-40); Vitamin D,25 Hydroxy 82.8 ng/mL (30-100); cholesterol:hdl ratio screen 3.30
== END | disposition home or self-care (01) ==
LOC: MFPLAB 09:19
PROVIDERS: PCP Family Medicine; Visit Provider Family Medicine
DX: I10 Essential (primary) hypertension (principal); E55.9 Vitamin D deficiency, unspecified
CPT/HCPCS: 36415; 80053; 80061; 81001; 82306; 83735; 85025

== ENCOUNTER → 2025-01-15 | Outpatient (CLI) | payer MEDICARE, SELFPAY ==
--- NOTE | 2025-01-15 13:34 | ECHOD_ITS ---
Reason For Study Reason For Study: ASCENDING AORTIC ANEURYSM Procedure This was a 2D Doppler, Color Flow transthoracic echocardiogram. Contrast injection was performed. The study was technically difficult. Definity images done from on top of chest/low parasternal window. Exam performed in department. Left Ventricle Normal LV size. Left ventricular systolic function is normal. The left ventricular ejection fraction is 60 %. No regional wall motion abnormalities noted. Right Ventricle Normal RV size. Normal systolic function. Atria Normal left atrium. Normal right atrium. Mitral Valve Normal mitral valve. Pulmonic Valve Normal pulmonic valve. Great Vessels Mildly dilated aortic root. The sinus of valsalva is mildly dilated. The pulmonary artery is normal size. Inferior vena cava collapse with respiration. Pericardium/Pleural No pericardial effusion. Medication 22 gauge I.V. with prn adaptor inserted into right arm. Diluted definity 4ml given slow IV push to enhance endocardial definition. MMode/2D Measurements & Calculations LVIDd: 4.4 cm IVSd: 1.2 cm LVOT diam: 2.1 cm LVIDs: 2.7 cm LVPWd: 1.0 cm LVOT area: 3.3 cm2 RVDd: 3.5 cm FS: 38.5 % asc Aorta Diam: 4.0 cm LAV(MOD-bp): 39.3 ml LVAd ap4: 32.2 cm2 LAV(MOD-bp) Indexed: 19.8 ml/m2 LVLd ap4: 8.1 cm LAV(MOD-sp2): 42.1 ml EDV(MOD-sp4): 103.5 ml LAV(MOD-sp4): 34.0 ml EDV(sp4-el): 108.4 ml LVAs ap4: 18.4 cm2 LVLs ap4: 6.7 cm ESV(MOD-sp4): 41.2 ml ESV(sp4-el): 42.4 ml EF(MOD-sp4): 60.2 % EF(sp4-el): 60.9 % SV(MOD-sp4): 62.3 ml SV(MOD-sp2): 81.9 ml LVAd ap2: 36.7 cm2 LVLd ap2: 9.0 cm SI(MOD-sp4): 31.3 ml/m2 SI(MOD-sp2): 41.2 ml/m2 EDV(MOD-sp2): 121.5 ml EDV(sp2-el): 127.2 ml LVAs ap2: 18.5 cm2 LVLs ap2: 7.0 cm ESV(MOD-sp2): 39.6 ml ESV(sp2-el): 41.6 ml EF(MOD-sp2): 67.4 % SV(sp4-el): 65.9 ml Ao sinus diam: 4.[address] Junction: 3.3 cm LA A4 area: 15.1 cm2 LA dimension(2D): 3.6 cm RA A4 area: 10.4 cm2 TAPSE: 2.1 cm Time Measurements MV dec time: 0.20 sec Doppler Measurements & Calculations MV E max ezio: 108.4 cm/sec Lat Peak E' Ezio: 12.4 cm/sec Med Peak E' Ezio: 6.8 cm/sec MV A max ezio: 94.5 cm/sec E/E' lat: 8.7 E/E' med: 16.0 MV E/A: 1.1 Ao V2 max: 111.1 cm/sec LV V1 max: 95.1 cm/sec MV dec slope: 530.0 cm/sec2 Ao max P.9 mmHg LV V1 max P.6 mmHg Ao V2 mean: 83.0 cm/sec LV V1 mean P.2 mmHg Ao mean P.0 mmHg LV V1 mean: 70.8 cm/sec Ao V2 VTI: 25.6 cm LV V1 VTI: 23.3 cm AV (velocity ratio): 0.91 CHRISTOPH(I,D): 3.0 cm2 CHRISTOPH(V,D): 2.9 cm2 MR max ezio: 537.7 cm/sec SV(LVOT): 77.6 ml TV V2 max: 271.7 cm/sec MR max P.7 mmHg TV max P.5 mmHg MR mean ezio: 404.3 cm/sec MR mean P.4 mmHg MR VTI: 187.2 cm PA V2 max: 62.5 cm/sec TR max ezio: 240.7 cm/sec TR max P.3 mmHg ECHO/Echo Complete W/ Contrast Interpretation Summary Normal LV size. Left ventricular systolic function is normal. The left ventricular ejection fraction is 60 %. Mildly dilated aortic root. Measuring 4.0 cm The sinus of valsalva is mildly dilated. Contrast injection was performed. Ordering Physician: Cristóbal Nielsen Referring Physician: Cristóbal Nielsen Performed By: Sachi Bauer RDCS
== END | disposition home or self-care (01) ==
LOC: CVS 13:28
PROVIDERS: PCP Family Medicine; Referring Provider Family Medicine; Visit Provider Family Medicine
DX: I71.21 Aneurysm of the ascending aorta, without rupture (principal)
CPT/HCPCS: 93306; Q9957; A4216; C8929